=== PATIENT | male | born 1940 | race Caucasian/White ===

== ENCOUNTER → 2023-05-11 | Outpatient (CLI) | payer MEDICARE ==
--- NOTE | 2023-05-11 15:31 | XR ---
EXAMINATION TYPE: XR chest 2V DATE OF EXAM: 05/11/2023 COMPARISON: None INDICATION: Routine physical checkup TECHNIQUE: Frontal and lateral views of the chest are obtained. FINDINGS: The heart size is normal. The pulmonary vasculature is normal. The lungs are clear. Pacemaker overlies the left chest. IMPRESSION: 1. No acute pulmonary process.
== END | disposition home or self-care (01) ==
LOC: RADXRMAIN 15:07
PROVIDERS: ATTEND Internal Medicine
DX: E83.52 Hypercalcemia (principal); R13.10 Dysphagia, unspecified
CPT/HCPCS: 71046

== ENCOUNTER → 2023-05-11 | Outpatient (CLI) | payer MEDICARE ==
[2023-05-11 17:32] LABS: Ionized Calcium 5.3 mg/dL (4.5-5.3)
[2023-05-11 18:04] LABS: ALT 157 U/L (4-49); AST 179 U/L (17-59); African American GFR (CKD) >90 (>60 ml/min/1.73 sqM); Albumin 4.2 g/dL (3.5-5.0); Albumin/Globulin Ratio 1.4; Alkaline Phosphatase 118 U/L (38-126); Anion Gap 6 mmol/L; Bilirubin,Unconjugated 0.4 mg/dL (0.0-1.1); Blood Urea Nitrogen 31 mg/dL (9-20); Calcium 9.9 mg/dL (8.4-10.2); Carbon Dioxide 28 mmol/L (22-30); Chloride 102 mmol/L (98-107); Globulin 3.1 g/dL; Non-African American GFR(CKD) 78 (>60 ml/min/1.73 sqM); Potassium 4.5 mmol/L (3.5-5.1); Sodium 136 mmol/L (137-145); Total Bilirubin 0.9 mg/dL (0.2-1.3); Total Protein 7.3 g/dL (6.3-8.2)
[2023-05-11 18:05] LABS: Glucose 73 mg/dL (74-99)
[2023-05-11 18:53] LABS: Basophils % (A) 1 %; Eosinophils # (A) 0.1 k/uL (0-0.7); Eosinophils % (A) 2 %; HCT 40.1 % (39.0-53.0); HGB 13.2 gm/dL (13.0-17.5); Lymphocytes # (A) 0.9 k/uL (1.0-4.8); Lymphocytes % (A) 24 %; MCH 33.5 pg (25.0-35.0); MCHC 32.9 g/dL (31.0-37.0); MCV 101.9 fL (80.0-100.0); Macrocytosis Slight; Mean Platelet Volume 12.1; Monocytes # (A) 0.2 k/uL (0-1.0); Monocytes % (A) 6 %; Neutrophils # (A) 2.4 k/uL (1.3-7.7); Neutrophils % (A) 66 %; RBC 3.93 m/uL (4.30-5.90); RDW 15.7 % (11.5-15.5); WBC 3.6 k/uL (3.8-10.6)
[2023-05-11 19:42] LABS: Platelet Count 48 k/uL (150-450)
[2023-05-12 02:42] LABS: Albumin 4.2 d/dL (3.8-4.9); Protein, Total 7.1 d/dL (6.2-8.2)
[2023-05-12 02:45] LABS: % Iron Saturation 22.43 (15.00-50.00); Ceruloplasmin 21.5 mg/dL (20.0-60.0); Iron 98 UG/DL (65-175); Total Iron Binding Capacity 437 UG/DL (228-460)
[2023-05-14 05:17] LABS: EBV - VCA IgM <10.0 U/mL (<36.0)
[2023-05-14 14:25] LABS: Smooth Muscle Antibody 18 UNITS (<20)
[2023-05-14 18:54] LABS: Gamma Globulin 0.92 d/dL (0.70-1.50)
[2023-05-14 20:01] LABS: Vitamin D, 1, 25-Dihydroxy 52 pg/mL (20 - 79)
== END | disposition home or self-care (01) ==
LOC: LABWHC1 15:27
PROVIDERS: ATTEND Internal Medicine
DX: E83.52 Hypercalcemia (principal); R74.01 Elevation of levels of liver transaminase levels
CPT/HCPCS: 36415; 80053; 80074; 82248; 82330; 82390; 82652; 83516; 83540; 83550; 83970; 84165; 85025; 86038; 86645; 86665

== ENCOUNTER → 2023-06-08 | Outpatient (CLI) | payer MEDICARE ==
--- NOTE | 2023-06-08 08:35 | XR ---
EXAMINATION TYPE: XR chest 2V DATE OF EXAM: 06/08/2023 COMPARISON: 05/25/2023 HISTORY: 82-year-old male [id number] TECHNIQUE: Frontal and lateral views FINDINGS: Left anterior chest wall ICD generator with right atrial and right ventricular leads. Heart normal si ze. Aorta and pulmonary vasculature within normal limits. No consolidation or pleural effusion. IMPRESSION: No acute cardiopulmonary process.
--- NOTE | 2023-06-08 09:12 | US ---
EXAMINATION TYPE: US abdomen complete DATE OF EXAM: 06/08/2023 COMPARISON: NONE CLINICAL INDICATION: Male, 82 years old with history of R74.01 ELEV LIVER LEVELS; elevated LFTs TECHNIQUE: Multiple sonographic images of the abdomen are obtained. FINDINGS: EXAM MEASUREMENTS: Liver Length: 12.6 cm Gallbladder Wall: 0.2 cm CBD: 0.3 cm Spleen: 10.5 cm Right Kidney: 9.7x3.4x4.8 cm Left Kidney: 8.2x4.4x5.7 cm OUTSIDE SALES ACCOUNT EXECUTIVE NOTES: Pancreas: dilated duct, mostly homogenous, several anechoic areas noted in head of pancreas, scale d ecreased to detect low flow, does not seem vascular in nature. (cysts vs. dilated bile ducts) Liver: wnl Gallbladder: wnl, phrygian cap Evidence for sonographic Iqbal's sign: No CBD: wnl Spleen: wnl Right Kidney: several cystic areas noted, largest 2 measured superior: 3.3x2.5x2.7cm mid: 2.1x1.5x1.9cm Left Kidney: cystic area measured on lower pole: 2.5x2.12.9cm Upper IVC: wnl Abd Aorta: Distal AAA 2.8x3.6, atherosclerotic plaque throughout, iliacs also imaged free fluid seen in pericardial sac and bilateral pleural spaces. Exam technically difficult due to brianne wel gas and feeding tube Atherosclerotic calcification of the aorta and its branches. Distal abdominal aortic aneurysm measuri ng up to 3.6 cm. Aneurysm dilatation of both common iliac arteries with the right measuring 2.1 cm an d the left measuring 1.8 cm. Small bilateral pleural effusions. Trace pericardial fluid. Mildly prominent pancreatic measuring up to 3 mm. Several simple cysts noted within the head of the p ancreas the liver is within normal limits without focal lesion. Several cysts identified within the r ight kidney with largest in the superior pole measuring up to 3.3 cm. No hydronephrosis or nephrolith iasis involving both kidneys. No solid masses identified within each kidney. Lower pole simple left r enal cyst measuring up to 2.9 cm. The spleen is within normal limits. The gallbladder is unremarkable without evidence of pericholecyst ic fluid, wall thickening, or shadowing calculi. IMPRESSION: 1. No acute abdominal process. 2. Mildly dilated main pancreatic duct with several cystic lesions within the pancreatic head which may represent side branch intraductal papillary mucinous neoplasms versus pseudocyst versus other ha ologies. Further evaluation with MR abdomen/MRCP is recommended. 3. Distal abdominal aortic aneurysm measuring up to 3.6 cm with aneurysmal dilatation of the bilater al common iliac arteries. 4. Bilateral simple renal cysts. 5. Small bilateral pleural effusions. 6. Trace pericardial effusion.
== END | disposition home or self-care (01) ==
LOC: RADUSWWP 07:21
PROVIDERS: ATTEND Internal Medicine
DX: E83.52 Hypercalcemia (principal); J90 Pleural effusion, not elsewhere classified; N28.1 Cyst of kidney, acquired; I71.40 Abdominal aortic aneurysm, without rupture, unspecified; I31.39 Other pericardial effusion (noninflammatory); R74.01 Elevation of levels of liver transaminase levels
CPT/HCPCS: 71046; 76700

== ENCOUNTER → 2023-06-30 | Outpatient (CLI) | payer MEDICARE ==
[2023-06-30 13:27] LABS: ALT 36 U/L (10-49); AST 41 U/L (14-35); Albumin 4.2 d/dL (3.8-4.9); Albumin/Globulin Ratio 1.83 Ratio (1.60-3.17); Alkaline Phosphatase 103 U/L (41-126); BUN/Creat Ratio 30.88 Ratio (12.00-20.00); Blood Urea Nitrogen 24.7 mg/dL (9.0-27.0); Calcium 9.9 mg/dL (8.7-10.3); Carbon Dioxide 25.6 mmol/L (21.6-31.8); Chloride 109 mmol/L (96-109); Globulin 2.3 d/dL (1.6-3.3); Glucose 80 mg/dL (70-110); Potassium 4.3 mmol/L (3.5-5.5); Sodium 144 mmol/L (135-145); T4, Free (Free Thyroxine) 1.68 ng/dL (0.80-1.80); Total Bilirubin 0.7 mg/dL (0.3-1.2); Total Protein 6.5 d/dL (6.2-8.2)
== END | disposition home or self-care (01) ==
LOC: LABWHC1 08:55
PROVIDERS: ATTEND Internal Medicine
DX: E03.9 Hypothyroidism, unspecified (principal)
CPT/HCPCS: 36415; 80053; 84439; 84443

== ENCOUNTER → 2023-08-23 | Outpatient (CLI) | payer MEDICARE ==
--- NOTE | 2023-08-23 12:39 | FL ---
Exam Date: 08/23/2023 12:20 PM. Modified barium swallow for dysphagia. Consistencies administered: Various consistency of barium. Fluoro time: 3 minutes 14 seconds No images were sent to PACS. Please see speech pathology report. DAP: Not reported by machine [email or web address]
== END | disposition home or self-care (01) ==
LOC: RADFLMAIN 11:39
PROVIDERS: ATTEND Internal Medicine
DX: R13.10 Dysphagia, unspecified (principal)
CPT/HCPCS: 74230

== ENCOUNTER 2023-09-04 06:13 | Day surgery (SDC) | payer MEDICARE ==
[2023-08-31 09:06] VITALS: BMI 18.2
[2023-09-04] MEDS ORDERED: LACTATED RINGERS 1,000 ML IV SCH (06:44)
[2023-09-04] MEDS ORDERED: LIDOCAINE 1% (10MG/ML) FOR IV START INTRADERMA PRN (06:44)
[2023-09-04] MEDS ORDERED: ePHEDrine 50 MG/ML 1 ML VIAL ONE (07:06)
[2023-09-04] MEDS ORDERED: PROPOFOL 10 MG/ML 20 ML VIAL IV ONE (07:06)
[2023-09-04] MEDS ORDERED: fentaNYL (PF) 50 MCG/ML 2 ML AMP ONE (07:06)
--- NOTE | 2023-09-04 07:52 | OP ---
OPERATIVE REPORT DATE OF SERVICE : PROCEDURES PERFORMED: Bone marrow biopsy with general and local sedation. DESCRIPTION OF PROCEDURE: After administration of general anesthetization, the skin was prepped with 3 swabs of Betadine and 3 swabs of alcohol along with placement of sterile drape. After palpation of the right posterior superior iliac spine, 10 mL of 1% lidocaine was applied through the periosteum. A 0.3 cm incision was made into the skin. A 4-inch Jamshidi needle was then used to access the bone marrow. 17 mL of aspirate was obtained in addition to 1 cm core sample. There was less than 1 mL of blood loss. Mr. Mendiola tolerated the procedure well without any complications. He was sent to postop in stable condition. MMODL / IJN: [id number] /
[2023-09-04 08:27] VITALS: BP 108/68; PULSE 64; RESP 16
[2023-09-04 09:01] LABS: HCT 40.1 % (39.0-53.0); HGB 13.2 gm/dL (13.0-17.5); MCH 34.8 pg (25.0-35.0); MCHC 32.9 g/dL (31.0-37.0); MCV 105.7 fL (80.0-100.0); Macrocytosis Slight; Mean Platelet Volume 11.8; RBC 3.79 m/uL (4.30-5.90); RDW 12.9 % (11.5-15.5); Reticulocyte % 1.3 % (0.5-2.0)
[2023-09-04 09:44] LABS: Platelet Count 61 k/uL (150-450)
[2023-09-04 09:47] LABS: Basophils # (M) 0.05 k/uL (0-0.2); Eosinophils # (M) 0.05 k/uL (0-0.7); Neutrophils % (M) 70 %; Nucleated Red Blood Cells 0 /100 WBC (0-0); Total Cells Counted 100
== END 2023-09-04 08:52 | disposition home or self-care (01) ==
LOC: OR 06:13
PROVIDERS: ATTEND Internal Medicine Hematology & Oncology
DX: D61.818 Other pancytopenia (principal); I10 Essential (primary) hypertension; E78.5 Hyperlipidemia, unspecified; E03.9 Hypothyroidism, unspecified; I25.2 Old myocardial infarction; I25.5 Ischemic cardiomyopathy; Z95.0 Presence of cardiac pacemaker; Z95.5 Presence of coronary angioplasty implant and graft; Z79.811 Long term (current) use of aromatase inhibitors; Z79.899 Other long term (current) drug therapy
CPT/HCPCS: 85025; 85045; 38222; J3010; J2704

== ENCOUNTER → 2023-10-10 | Outpatient (CLI) | payer MEDICARE ==
[2023-10-10 15:44] LABS: Prealbumin 28.3 mg/dL (18.0-42.0)
[2023-10-10 15:59] LABS: ALT 28 U/L (10-49); AST 32 U/L (14-35); Albumin 3.9 g/dL (3.8-4.9); Albumin/Globulin Ratio 1.56 Ratio (1.60-3.17); Alkaline Phosphatase 106 U/L (41-126); BUN/Creat Ratio 42.62 Ratio (12.00-20.00); Blood Urea Nitrogen 34.1 mg/dL (9.0-27.0); Calcium 10.1 mg/dL (8.7-10.3); Carbon Dioxide 27.3 mmol/L (21.6-31.8); Chloride 109 mmol/L (96-109); Globulin 2.5 g/dL (1.6-3.3); Glucose 111 mg/dL (70-110); Magnesium 2.4 mg/dL (1.5-2.4); Potassium 4.3 mmol/L (3.5-5.5); Sodium 147 mmol/L (135-145); T4, Free (Free Thyroxine) 1.11 ng/dL (0.80-1.80); Total Bilirubin 0.4 mg/dL (0.3-1.2); Total Protein 6.4 g/dL (6.2-8.2)
== END | disposition home or self-care (01) ==
LOC: LABWHC1 08:24
PROVIDERS: ATTEND Internal Medicine
DX: I10 Essential (primary) hypertension (principal); E03.9 Hypothyroidism, unspecified
CPT/HCPCS: 36415; 80053; 83735; 84134; 84439; 84443

== ENCOUNTER 2023-11-29 11:19 | Day surgery (SDC) | payer MEDICARE ==
[2023-11-29] MEDS ORDERED: LACTATED RINGERS 1,000 ML IV SCH (11:43)
[2023-11-29 11:45] VITALS: TEMP 97.6
[2023-11-29] MEDS ORDERED: PROPOFOL 10 MG/ML 20 ML VIAL IV ONE (12:01)
[2023-11-29] MEDS ORDERED: LIDOCAINE 1% INJ 10MG/ML (20 ML MDV) ONE (12:01)
--- NOTE | 2023-11-29 12:12 | P.GSHP ---
History of Present Illness H&P Date: 11/29/23 Chief Complaint: PEG tube malfunction, ulcers 83-year-old male here for EGD with PEG tube replacement. Patient with history of previous ulcers. Here today for follow-up study to evaluate healing of ulcers. Patient also has a PEG tube in place. It requires replacement as it is old. Past Medical History Past Medical History: Hyperlipidemia, Hypertension, Myocardial Infarction (NH), Thyroid Disorder Additional Past Medical History / Comment(s): surgery on throat learning to speak through speech therapy. Put vein from leg in to throat. 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 Smoking Status: Former smoker Medications and Allergies Home Medications Medication Instructions Recorded Confirmed Type Atorvastatin [Lipitor] 40 mg PO DAILY 08/31/23 11/29/23 History Levothyroxine Sodium [Synthroid] 100 mcg PO DAILY 08/31/23 11/29/23 History Metoprolol Succinate (ER) [Toprol 25 mg PO DAILY 08/31/23 11/29/23 History Xl] Midodrine HCl [ProAmantine] 2.5 mg PO DAILY 08/31/23 11/29/23 History lisinopriL [Zestril] 2.5 mg PO DAILY 08/31/23 11/29/23 History Allergies Allergy/AdvReac Type Severity Reaction Status Date / Time No Known Allergies Allergy Verified 11/29/23 11:43 Surgical - Exam Vital Signs Temp Pulse Resp BP Pulse Ox 97.6 F 88 18 134/84 97 11/29/23 11:42 11/29/23 11:42 11/29/23 11:42 11/29/23 11:42 11/29/23 11:42 Physical exam: General: Well-developed, well-nourished HEENT: Normocephalic, sclerae nonicteric Abdomen: Nontender, nondistended Extremities: No edema Neuro: Alert and oriented Assessment and Plan (1) Peptic ulcer disease Narrative/Plan: 83-year-old male with peptic ulcer disease and indwelling catheter. Will pro ceed with EGD and PEG tube replacement at this time. Risks of bleeding, infection, perforation discussed. He understands and wishes to proceed. Current Visit: Yes Status: Acute Code(s): K27.9 - PEPTIC ULC, SITE UNSP, UNSP AC OR CHR, W/O HEMOR OR PERF SNOMED Code(s): 65692656
--- NOTE | 2023-11-29 12:49 | P.PCN ---
Date of Procedure: 11/29/23 Procedure(s) Performed: Preoperative Dx: History of ulcers, indwelling PEG tube Postoperative Dx: Mild gastritis, mild esophagitis, indwelling PEG tube Procedure: EGD with tube replacement Anesthesia: Sedation Endoscopist: Dr. Flores Specimens: None Endoscopic Procedure: The patient was on the endoscopy table in the left decubitus position. The Olympus pediatric gastroscope was inserted into the oropharynx and passed under direct visualization to the region of the third portion of the duodenum. From that point the scope was slowly withdrawn inspecting all surfaces carefully. There were no neoplastic inflammatory or polypoid lesions throughout the duodenum. The pylorus was widely patent. The stomach was carefully inspected. There was minimal gastritis present. The patient's indwelling PEG tube was a balloon replacement tube and the balloon was empty. This was present in the antrum. This was able to be removed without difficulty. There was no fluid in the balloon. A new nonballoon 20 [place] replacement was advanced and deployed. The remainder the stomach appeared visibly normal. There were no visible ulcerations despite history of previous bleeding ulcers that the patient's family states were in the stomach. There was no visible hiatal hernia. The patient's esophagus revealed some mild distal esophagitis and some mild narrowing thought to be related to disuse. The patient was then taken to the recovery room in stable condition per anesthesia guidelines. Recommendations: Resume tube feeds. Continue antiacid therapy.
[2023-11-29 13:00] VITALS: BP 144/77; PULSE 69; RESP 16
== END 2023-11-29 13:12 | disposition home or self-care (01) ==
LOC: ORWHC2ENDO 11:19
PROVIDERS: ATTEND Surgery
DX: K29.70 Gastritis, unspecified, without bleeding (principal); K94.23 Gastrostomy malfunction; K27.9 Peptic ulcer, site unspecified, unspecified as acute or chronic, without hemorrhage or perforation; K20.90 Esophagitis, unspecified without bleeding; I25.2 Old myocardial infarction; I10 Essential (primary) hypertension; E78.5 Hyperlipidemia, unspecified; Z79.890 Hormone replacement therapy; Z87.891 Personal history of nicotine dependence; Z79.899 Other long term (current) drug therapy
CPT/HCPCS: 43246; J2001; J2704

== ENCOUNTER → 2024-01-28 | Outpatient (CLI) | payer MEDICARE ==
[2024-01-28 10:39] LABS: African American GFR (CKD) >90 (>60 ml/min/1.73 sqM); Blood Urea Nitrogen 37 mg/dL (9-20); Non-African American GFR(CKD) 86 (>60 ml/min/1.73 sqM)
--- NOTE | 2024-01-28 13:41 | CT ---
EXAMINATION TYPE: CT abdomen pelvis w con DATE OF EXAM: 01/28/2024 COMPARISON: None HISTORY: pancreatic cyst CT DLP: 1271 mGycm Automated exposure control for dose reduction was used. TECHNIQUE: Helical acquisition of images was performed from the lung bases through the pelvis. CONTRAST: Performed without Oral Contrast and with IV Contrast, patient injected with 100ml mL of Isovue 300. FINDINGS: The lung bases are clear. The gallbladder is normal without distention, wall thickening, pericholecystic fluid or gallstones. T here is no biliary ductal dilatation. There are 2 small cysts in the lateral segment of the left lobe of the liver. There is a cluster of t iny cysts in the pancreatic head with overall dimensions of approximately 3 cm. Findings could repres ent an intraductal papillary mucous neoplasm. MRI of the pancreas is recommended for further evaluati on. There is no organomegaly or focal mass in the spleen or adrenal glands. There is no solid renal mass or hydronephrosis and there is homogeneous contrast enhancement of the r enal parenchyma. There is aneurysmal dilatation of the infrarenal abdominal aorta which measures 3.9 cm transverse and 4.2 cm in the anterior-posterior dimension. There is marked amount of mural thrombus. The aneurysm e xtends into the common iliac arteries the right common iliac artery measuring 23 mm.There is no retro peritoneal adenopathy or hemorrhage. The bowel loops are normal in caliber and there is no evidence of dilatation or obstruction. No infla mmatory changes are identified in the bowel wall or mesentery. There is no free intraperitoneal air or fluid. No pelvic mass, free fluid, abscess or adenopathy. There is moderate to marked prostatic hypertrophy. The osseous structures and soft tissues are intact. IMPRESSION: 1. Multiple tiny cystic masses in the pancreas and MRI the pancreas is recommended for further evalua tion, see above. 2. 4.2 x 3.9 cm infrarenal abdominal aortic aneurysm with extensive mural thrombus. 3. Moderate to marked prostatic enlargement. IMPRESSION: No significant abnormality seen.
== END | disposition home or self-care (01) ==
LOC: RADCTMAIN 09:48
PROVIDERS: ATTEND Internal Medicine
DX: I71.43 Infrarenal abdominal aortic aneurysm, without rupture (principal); K86.2 Cyst of pancreas; N40.0 Benign prostatic hyperplasia without lower urinary tract symptoms
CPT/HCPCS: 82565; 84520; 74177; 36415; Q9967

== ENCOUNTER → 2024-02-25 | Outpatient (CLI) | payer MEDICARE ==
[2024-02-25 12:04] LABS: Ionized Calcium 5.3 mg/dL (4.5-5.3)
[2024-02-25 12:11] LABS: HCT 47.2 % (39.0-53.0); MCH 35.7 pg (25.0-35.0); Macrocytosis Slight; Mean Platelet Volume 10.3; RDW 13.2 % (11.5-15.5); WBC 5.8 k/uL (3.8-10.6)
[2024-02-25 12:14] LABS: African American GFR (CKD) >90 (>60 ml/min/1.73 sqM); Anion Gap 6 mmol/L; Blood Urea Nitrogen 31 mg/dL (9-20); Calcium 9.7 mg/dL (8.4-10.2); Carbon Dioxide 27 mmol/L (22-30); Chloride 110 mmol/L (98-107); Glucose 105 mg/dL (74-99); Non-African American GFR(CKD) 83 (>60 ml/min/1.73 sqM); Potassium 4.5 mmol/L (3.5-5.1); Sodium 143 mmol/L (137-145)
[2024-02-25 13:40] LABS: Eosinophils # (M) 0.12 k/uL (0-0.7); Lymphocytes # (M) 0.93 k/uL (1.0-4.8); Monocytes # (M) 0.35 k/uL (0-1.0); Neutrophils # (M) 4.41 k/uL (1.3-7.7); Neutrophils % (M) 76 %; Nucleated Red Blood Cells 0 /100 WBC (0-0); Total Cells Counted 100
[2024-02-25 13:41] LABS: Platelet Count 87 k/uL (150-450)
[2024-02-25 15:53] LABS: Protein, Total 7.2 g/dL (6.2-8.2)
[2024-02-27 07:43] LABS: Albumin 4.01 g/dL (3.80-4.90); Gamma Globulin 0.96 g/dL (0.70-1.50)
== END | disposition home or self-care (01) ==
LOC: LABWHC1 11:29
PROVIDERS: ATTEND Internal Medicine
DX: E83.52 Hypercalcemia (principal)
CPT/HCPCS: 36415; 80048; 82306; 82330; 82652; 83970; 84165; 85025

== ENCOUNTER → 2024-02-25 | Outpatient (CLI) | payer MEDICARE ==
--- NOTE | 2024-02-25 11:53 | FL ---
EXAMINATION TYPE: FL barium swallow w video DATE OF EXAM: 02/25/2024 CLINICAL HISTORY: 83-year-old male R13.10, carotid surgery on the right side 2 years ago with signifi cant dysphagia subsequently. Patient with tube feeds. Referred for reassessment of swallowing. Total fluoroscopy time 2 minutes 51 seconds. Total images: None. Real-time fluoroscopy support was provided to speech pathology. Total DAP: 50 mGycm2. TECHNIQUE: Deglutition study is performed utilizing thin liquid barium, honey and nectar thick liqui d barium. COMPARISON: None. FINDINGS: There is aspiration with thin liquids. Penetration of nectar and honey thick liquid consistencies. Si gnificant pharyngeal residuals are encountered. Some clearance of these residuals with a leftward hea d turn maneuver. IMPRESSION: Aspiration of thin liquids and penetration of nectar and honey liquid. Significant pharyngeal residua l. A leftward head turn helps to partially clear the residuals. Please refer to speech therapist notes for further details if necessary.
== END | disposition home or self-care (01) ==
LOC: RADFLMAIN 10:33
PROVIDERS: ATTEND Internal Medicine
DX: R13.10 Dysphagia, unspecified (principal)
CPT/HCPCS: 74230

== ENCOUNTER 2024-04-16 15:46 | Inpatient (IN) | payer MEDICARE ==
--- NOTE | 2024-04-16 16:11 | ED ---
General Adult HPI - General Stated complaint: weakness,fever Time Seen by Provider: 04/16/24 15:46 Source: patient, RN notes reviewed, old records reviewed - History of Present Illness Initial comments: This is an 83-year-old male who comes in today for difficulty breathing and fever. Patient has a past history of dysphagia such that he has to take all p.o. intake through a PEG tube. Patient comes in today because he was exposed to influenza and he is spiking a fever and it is thought that he might have pneumonia and or influenza. Patient denies chest pain or back pain. Patient has any abdominal pain. Patient according to EMS was vomiting occasionally and it is possible there was some aspiration pneumonia. Patient denies any headache patient denies numbness or weakness - Related Data Home Medications Medication Instructions Recorded Confirmed Atorvastatin [Lipitor] 40 mg PEG/G-TUBE DAILY@1500 08/31/23 04/16/24 Metoprolol Succinate (ER) [Toprol 25 mg PEG/G-TUBE HS 08/31/23 04/16/24 Xl] Midodrine HCl [ProAmantine] 2.5 mg PEG/G-TUBE BID 08/31/23 04/16/24 lisinopriL [Zestril] 2.5 mg PEG/G-TUBE DAILY 08/31/23 04/16/24 Levothyroxine Sodium [Synthroid] 25 mcg PEG/G-TUBE GALLARDO 04/16/24 04/16/24 Levothyroxine Sodium [Synthroid] 100 mcg PEG/G-TUBE DAILY 04/16/24 04/16/24 Loratadine [Claritin] 10 mg PEG/G-TUBE DAILY@1500 04/16/24 04/16/24 Allergies Allergy/AdvReac Type Severity Reaction Status Date / Time No Known Allergies Allergy Verified 04/16/24 16:39 Review of Systems ROS Statement: Those systems with pertinent positive or pertinent negative responses have been documented in the HPI. ROS Other: All systems not noted in ROS Statement are negative. Past Medical History Past Medical History: Hyperlipidemia, Hypertension, Myocardial Infarction (ME), Thyroid Disorder Additional Past Medical History / Comment(s): surgery on throat learning to speak through speech therapy. Put vein from leg in to throat. 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 Patient is nontoxic and well- hydrated and is in mild distress. ENT: Neck is soft and supple. No significant lymphadenopathy is noted. Oropharynx is clear. Moist mucous membranes. Neck has full range of motion without eliciting any pain. EYES: The sclera were anicteric and conjunctiva were pink and moist. Extraocular movements were intact and pupils were equal round and reactive to light. Eyelids were unremarkable. PULMONARY: Unlabored respirations. Good breath sounds bilaterally. No audible rales rhonchi or wheezing was noted. CARDIOVASCULAR: There is a regular rate and rhythm without any murmurs gallops or rubs. ABDOMEN: Soft and nontender with normal bowel sounds. SKIN: Skin is clear with no lesions or rashes and otherwise unremarkable. NEUROLOGIC: Patient is alert and oriented x3. Cranial nerves II through XII are grossly intact. Motor and sensory are also intact. Normal speech, volume and content. Symmetrical smile. MUSCULOSKELETAL: Normal extremities with adequate strength and full range of motion. No lower extremity swelling or edema. No calf tenderness. LYMPHATICS: No significant lymphadenopathy is noted PSYCHIATRIC: Normal psychiatric evaluation. Course Vital Signs 04/16/24 04/16/24 04/16/24 15:56 16:33 18:00 Temperature 100.8 F H 99.1 F Pulse Rate 100 103 H 90 Respiratory 18 18 16 Rate Blood Pressure 124/47 112/64 105/44 O2 Sat by Pulse 98 92 L 94 L Oximetry Medical Decision Making - Medical Decision Making EKG is interpreted by myself EKG shows sinus tachycardia at 103 bpm parables 148 QRS is 123 QT interval 334 QTc is 394. Patient's EKG shows a right bundle branch block. Was pt. sent in by a medical professional or institution (, PA, SIEBEL CRM DEVELOPER, urgent care, hospital, or snf...) When possible be specific @ -No Did you speak to anyone other than the patient for history (EMS, parent, family, police, friend...)? What history was obtained from this source @ -No Did you review nursing and triage notes (agree or disagree)? Why? @ -I reviewed and agree with nursing and triage notes Were old charts reviewed (outside hosp., previous admission, EMS record, old EKG, old radiological studies, urgent care reports/EKG's, snf records)? Report findings @ -I reviewed prior admission charts and this patient lab work today is essentially normal in comparison Differential Diagnosis (chest pain, altered mental status, abdominal pain women, abdominal pain men, vaginal bleeding, weakness, fever, dyspnea, syncope, headache, dizziness, GI bleed, back pain, seizure, CVA, palpatations, mental health, musculoskeletal)? @ -Not applicable EKG interpreted by me (3pts min.). @ -As above X-rays interpreted by me (1pt min.). @ -Chest x-ray shows lower lobe pneumonia on the right CT interpreted by me (1pt min.). @ -None done U/S interpreted by me (1pt. min.). @ -None done What testing was considered but not performed or refused? (CT, X-rays, U/S, labs)? Why? @ -None What meds were considered but not given or refused? Why? @ -None Did you discuss the management of the patient with other professionals (professionals i.e. , PA, SIEBEL CRM DEVELOPER, lab, RT, psych nurse, transition social worker, invisible braces orthodontist, t eacher, medical corps officer, caser in)? Give summary @ -I spoke with sound physicians they agreed to admit the patient admit the patient wrote admitting orders Was smoking cessation discussed for >3mins.? @ -No Was critical care preformed (if so, how long)? @ -No Were there social determinants of health that impacted care today? How? (Homelessness, low income, unemployed, alcoholism, drug addiction, transportation, low edu. Level, literacy, decrease access to med. care, retirement, rehab)? @ -No Was there de-escalation of care discussed even if they declined (Discuss DNR or withdrawal of care, Hospice)? DNR status @ -No What co-morbidities impacted this encounter? (DM, HTN, Smoking, COPD, CAD, Canc er, CVA, ARF, Chemo, Hep., AIDS, mental health diagnosis, sleep apnea, morbid obesity)? @ -None Was patient admitted / discharged? Hospital course, mention meds given and route, prescriptions, significant lab abnormalities, going to OR and other pertinent info. @ -Patient got his Rocephin for the pneumonia. Patient will get admitted to [facility] I will continue antibiotics in the floor and I gave the patient 1.5 L of normal saline Undiagnosed new problem with uncertain prognosis? @ -No Drug Therapy requiring intensive monitoring for toxicity (Heparin, Nitro, Insulin, Cardizem)? @ -No Were any procedures done? @ -No Diagnosis/symptom? @ -Pneumonia Acute, or Chronic, or Acute on Chronic? @ -acute Uncomplicated (without systemic symptoms) or Complicated (systemic symptoms)? @ -Complicated Side effects of treatment? @ -No Exacerbation, Progression, or Severe Exacerbation? @ -No Poses a threat to life or bodily function? How? (Chest pain, [place], ME, pneumonia, PE, COPD, DKA, ARF, appy, cholecystitis, CVA, Diverticulitis, Homicidal, Suicidal, threat to staff... and all critical care pts) @ -Yes this can lead to sepsis and endorgan dysfunction - Lab Data Result diagrams: 04/16/24 16:18 04/16/24 16:45 Lab Results 04/16/24 04/16/24 04/16/24 Range/Units 16:18 16:18 16:18 WBC 7.8 (3.8-10.6) k/uL RBC 4.12 L (4.30-5.90) m/uL Hgb 14.4 (13.0-17.5) gm/dL Hct 41.6 (39.0-53.0) % MCV 100.9 H (80.0-100.0) fL MCH 34.9 (25.0-35.0) pg MCHC 34.6 (31.0-37.0) g/dL RDW 13.4 (11.5-15.5) % Plt Count 77 L (150-450) k/uL MPV 12.3 Neutrophils % 86 % Lymphocytes % 4 % Monocytes % 9 % Eosinophils % 0 % Basophils % 0 % Neutrophils # 6.7 (1.3-7.7) k/uL Lymphocytes # 0.3 L (1.0-4.8) k/uL Monocytes # 0.7 (0-1.0) k/uL Eosinophils # 0.0 (0-0.7) k/uL Basophils # 0.0 (0-0.2) k/uL Manual Slide Review Performed Large Platelets Present Polychromasia Present Macrocytosis Slight PT 10.8 (10.0-12.5) sec INR 1.0 (<1.2) APTT 21.2 L (22.0-30.0) sec Sodium (137-145) mmol/L Potassium (3.5-5.1) mmol/L Chloride (98-107) mmol/L Carbon Dioxide (22-30) mmol/L Anion Gap mmol/L BUN (9-20) mg/dL Creatinine (0.66-1.25) mg/dL Est GFR (CKD-EPI)AfAm (>60 ml/min/1.73 sqM) Est GFR (CKD-EPI)NonAf (>60 ml/min/1.73 sqM) Glucose (74-99) mg/dL Plasma Lactic Acid Raimundo 1.5 (0.7-2.0) mmol/L Calcium (8.4-10.2) mg/dL Total Bilirubin (0.2-1.3) mg/dL AST (17-59) U/L ALT (4-49) U/L Alkaline Phosphatase (38-126) U/L Total Protein (6.3-8.2) g/dL Albumin (3.5-5.0) g/dL Influenza Type A (PCR) (Not Detectd) Influenza Type B (PCR) (Not Detectd) RSV (PCR) (Not Detectd) SARS-CoV-2 (PCR) (Not Detectd) 04/16/24 04/16/24 Range/Units 16:18 16:45 WBC (3.8-10.6) k/uL RBC (4.30-5.90) m/uL Hgb (13.0-17.5) gm/dL Hct (39.0-53.0) % MCV (80.0-100.0) fL MCH (25.0-35.0) pg MCHC (31.0-37.0) g/dL RDW (11.5-15.5) % Plt Count (150-450) k/uL MPV Neutrophils % % Lymphocytes % % Monocytes % % Eosinophils % % Basophils % % Neutrophils # (1.3-7.7) k/uL Lymphocytes # (1.0-4.8) k/uL Monocytes # (0-1.0) k/uL Eosinophils # (0-0.7) k/uL Basophils # (0-0.2) k/uL Manual Slide Review Large Platelets Polychromasia Macrocytosis PT (10.0-12.5) sec INR (<1.2) APTT (22.0-30.0) sec Sodium 140 (137-145) mmol/L Potassium 5.1 (3.5-5.1) mmol/L Chloride 110 H (98-107) mmol/L Carbon Dioxide 25 (22-30) mmol/L Anion Gap 5 mmol/L BUN 25 H (9-20) mg/dL Creatinine 0.68 (0.66-1.25) mg/dL Est GFR (CKD-EPI)AfAm >90 (>60 ml/min/1.73 sqM) Est GFR (CKD-EPI)NonAf 90 (>60 ml/min/1.73 sqM) Glucose 122 H (74-99) mg/dL Plasma Lactic Acid Raimundo (0.7-2.0) mmol/L Calcium 8.6 (8.4-10.2) mg/dL Total Bilirubin 1.1 (0.2-1.3) mg/dL AST 41 (17-59) U/L ALT 21 (4-49) U/L Alkaline Phosphatase 78 (38-126) U/L Total Protein 6.3 (6.3-8.2) g/dL Albumin 3.6 (3.5-5.0) g/dL Influenza Type A (PCR) Not Detected (Not Detectd) Influenza Type B (PCR) Not Detected (Not Detectd) RSV (PCR) Not Detected (Not Detectd) SARS-CoV-2 (PCR) Not Detected (Not Detectd) Disposition Clinical Impression: Pneumonia Disposition: ADMITTED IP TO THIS [facility] Referrals: Junior Quiroz DO [Primary Care Provider] - 1-2 days Time of Disposition: 19:09
[2024-04-16] MEDS: ACETAMINOPHEN IV (For NPO) 1,000 MG in EMPTY BAG 1 BAG IVPB STA (16:32)
[2024-04-16] MEDS: SODIUM CHLORIDE 0.9% 500 ML 500 ML IV SCH (16:32)
--- NOTE | 2024-04-16 16:40 | XR ---
EXAMINATION TYPE: XR chest 2V DATE OF EXAM: 04/16/2024 COMPARISON: Chest x-ray June 08, 2023 HISTORY: Fever TECHNIQUE: Frontal and lateral views of the chest are obtained. FINDINGS: There is no suspicious new focal air space opacity, pleural effusion, or pneumothorax see n. The cardiac silhouette size is stable and within normal limits. Dual-lead pacemaker redemonstrate d. The osseous structures are intact. Colonic interposition below the right hemidiaphragm is noted. IMPRESSION: No acute pulmonary infiltrate.
[2024-04-16] MEDS: cefTRIAXone IN SWFI 1,000 MG/10 ML SYRINGE IVP STA ×2 (16:47→16:50)
[2024-04-16] MEDS: IBUPROFEN IV 600 MG in SODIUM CHLORIDE 0.9% 250 ML IV STA (16:51)
[2024-04-16 17:02] LABS: Prothrombin Time 10.8 sec (10.0-12.5)
[2024-04-16 17:03] LABS: Basophils % (A) 0 %; Eosinophils % (A) 0 %; HCT 41.6 % (39.0-53.0); HGB 14.4 gm/dL (13.0-17.5); Lymphocytes # (A) 0.3 k/uL (1.0-4.8); Lymphocytes % (A) 4 %; MCH 34.9 pg (25.0-35.0); MCHC 34.6 g/dL (31.0-37.0); MCV 100.9 fL (80.0-100.0); Macrocytosis Slight; Mean Platelet Volume 12.3; Monocytes # (A) 0.7 k/uL (0-1.0); Monocytes % (A) 9 %; Neutrophils # (A) 6.7 k/uL (1.3-7.7); Neutrophils % (A) 86 %; RBC 4.12 m/uL (4.30-5.90); RDW 13.4 % (11.5-15.5); WBC 7.8 k/uL (3.8-10.6)
[2024-04-16 17:06] LABS: Partial Thromboplastin Time 21.2 sec (22.0-30.0)
[2024-04-16 17:18] LABS: Large Platelets Present; Polychromasia Present
[2024-04-16 17:18] LABS: ALT 21 U/L (4-49); African American GFR (CKD) >90 (>60 ml/min/1.73 sqM); Albumin 3.6 g/dL (3.5-5.0); Anion Gap 5 mmol/L; Blood Urea Nitrogen 25 mg/dL (9-20); Calcium 8.6 mg/dL (8.4-10.2); Carbon Dioxide 25 mmol/L (22-30); Chloride 110 mmol/L (98-107); Glucose 122 mg/dL (74-99); Non-African American GFR(CKD) 90 (>60 ml/min/1.73 sqM); Sodium 140 mmol/L (137-145); Total Bilirubin 1.1 mg/dL (0.2-1.3); Total Protein 6.3 g/dL (6.3-8.2)
[2024-04-16 17:19] LABS: Platelet Count 77 k/uL (150-450)
[2024-04-16 17:37] LABS: AST 41 U/L (17-59); Alkaline Phosphatase 78 U/L (38-126); Potassium 5.1 mmol/L (3.5-5.1)
[2024-04-16] MEDS ORDERED: PNEUMONIA PROTOCOL UTILIZED 1 EACH MISC PO PRN (19:10)
[2024-04-16] MEDS: AZITHROMYCIN 500 MG in SODIUM CHLORIDE 0.9% 250 ML IVPB STA (20:28)
[2024-04-16] MEDS: HYDROCORTISONE SUCCINATE 100 MG/2 ML VIAL IV STA (20:28)
[2024-04-16] MEDS: SODIUM CHLORIDE 0.9% 1,000 ML IV ONE (20:29)
--- NOTE | 2024-04-16 22:59 | P.HPIM ---
History of Present Illness H&P Date: 04/16/24 Chief Complaint: Fevers cough 83-year-old male with hypertension hypothyroid Patient has poor insight of his medical conditions Patient has history of dysphagia for which she had a PEG tube inserted patient denies any history of cancer. It is reported that at home he had exposure to influenza today he was spiking fevers for which she was sent to the hospital for evaluation he gets his feeding through his PEG tube patient was having vomiting episodes at home which leads to suspicion of possible aspiration Patient himself has no complaints however when he talks he sounds congested In the ED acute respiratory viral panel was negative, chest x-ray no acute cardiopulmonary process Patient was started on antibiotics cultures obtained was admitted for further care review of systems Pertinent positives as noted in HPI. All other systems were reviewed and are negative on exam Constitutional: No acute distress, Eyes: Anicteric sclerae, moist conjunctiva, Pupils equal round reactive to light ENMT: NC/AT Oropharynx clear, no erythema, or exudates Neck: Supple, no masses, or JVD No carotid bruits No thyromegaly Lungs: Good breath sounds bilaterally no wheezing Clear to percussion Normal respiratory effort, no accessory muscle use Cardiovascular: Heart regular in rate and rhythm, No murmurs, gallops, or rubs No peripheral edema Abdominal: Soft Nontender, no guarding, rebound or rigidity Abdomen moving with respiration Normoactive bowel sounds PEG tube in place no surrounding erythema at insertion site no drainage Extremities: No digital cyanosis No clubbing Pedal pulses intact and symmetrical Radial pulses intact and symmetrical No calf tenderness Psychiatric: Alert and oriented to person, place and time Appropriate affect fair judgement Neuro Muscles Strength 5/5 in all 4 extremities Sensation to light touch grossly present throughout Cranial nerves II-XII grossly intact Past Medical History Past Medical History: Hyperlipidemia, Hypertension, Myocardial Infarction (MT), Thyroid Disorder Additional Past Medical History / Comment(s): surgery on throat learning to speak through speech therapy. Put vein from leg in to throat. 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 Smoking Status: Former smoker Medications and Allergies Home Medications Medication Instructions Recorded Confirmed Type Atorvastatin [Lipitor] 40 mg PEG/G-TUBE DAILY@1500 08/31/23 04/16/24 History Metoprolol Succinate (ER) [Toprol 25 mg PEG/G-TUBE HS 08/31/23 04/16/24 History Xl] Midodrine HCl [ProAmantine] 2.5 mg PEG/G-TUBE BID 08/31/23 04/16/24 History lisinopriL [Zestril] 2.5 mg PEG/G-TUBE DAILY 08/31/23 04/16/24 History Levothyroxine Sodium [Synthroid] 25 mcg PEG/G-TUBE GALLARDO 04/16/24 04/16/24 History Levothyroxine Sodium [Synthroid] 100 mcg PEG/G-TUBE DAILY 04/16/24 04/16/24 History Loratadine [Claritin] 10 mg PEG/G-TUBE DAILY@1500 04/16/24 04/16/24 History Allergies Allergy/AdvReac Type Severity Reaction Status Date / Time No Known Allergies Allergy Verified 04/16/24 16:39 Physical Exam Vitals: Vital Signs Temp Pulse Pulse Resp BP BP Pulse Ox 04/16/24 21:57 98.1 F 81 18 97/62 94 L 04/16/24 21:37 97.7 F 82 19 106/72 93 L 04/16/24 21:00 76 19 101/74 93 L 04/16/24 20:25 76 16 95/57 94 L 04/16/24 20:00 79 18 98/33 91 L 04/16/24 19:12 81 18 87/55 94 L 04/16/24 18:00 99.1 F 90 16 105/44 94 L 04/16/24 16:33 103 H 18 112/64 92 L 04/16/24 15:56 100.8 F H 100 18 124/47 98 Intake and Output 04/16/24 04/16/24 04/16/24 06:59 14:59 22:59 Other: Weight 63.503 kg Results CBC & Chem 7: 04/16/24 16:18 04/16/24 16:45 Labs: Abnormal Lab Results - Last 24 Hours (Table) 04/16/24 04/16/24 04/16/24 Range/Units 16:18 16:18 16:45 RBC 4.12 L (4.30-5.90) m/uL MCV 100.9 H (80.0-100.0) fL Plt Count 77 L (150-450) k/uL Lymphocytes # 0.3 L (1.0-4.8) k/uL APTT 21.2 L (22.0-30.0) sec Chloride 110 H (98-107) mmol/L BUN 25 H (9-20) mg/dL Glucose 122 H (74-99) mg/dL Assessment and Plan Assessment: 83-year-old male with history of dysphagia status post PEG tube hypertension hypothyroid coming in for fevers and suspicion of aspiration I discussed case with ED doctor and accepted the admission for evaluation of possible aspiration ruling out aspiration pneumonia with anticipated length of stay less than 2 midnights 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
[2024-04-17 00:34] LABS: Appearance,Urine Clear (Clear); Bacteria,Urine Rare /hpf; Bilirubin,Urine Negative (Negative); Blood,Urine Small (Negative); Color,Urine Yellow; Glucose,Urine (UA) Negative (Negative); Hyaline Casts,Urine 1 /lpf (0-2); Ketones,Urine Negative (Negative); Leukocyte Esterase,Urine Negative (Negative); Mucus,Urine Rare /hpf; Nitrite,Urine Negative (Negative); PH, Urine 5.5 (5.0-8.0); Protein,Urine 1+ (Negative); RBC,Urine 11 /hpf (0-5); Specific Gravity,Urine 1.031 (1.001-1.035); Squamous Epithelial Cell,Urine <1 /hpf (0-4); Urobilinogen,Urine <2.0 mg/dL (<2.0); WBC,Urine 1 /hpf (0-5)
[2024-04-17] MEDS: LEVOTHYROXINE 100 MCG TAB PEG/G-TUBE SCH (06:41)
--- NOTE | 2024-04-17 07:57 | XR ---
EXAMINATION TYPE: XR chest 1V portable DATE OF EXAM: 04/17/2024 COMPARISON: 04/16/2024 HISTORY: Pneumonia TECHNIQUE: Single frontal view of the chest is obtained. FINDINGS: Bilateral lower lobe infiltrate\atelectasis. Limited inspiration with elevated hemidiaphra gm. Underlying emphysema suspected. Cardiac device stable. Atherosclerotic change aorta. No pneumotho rax or overt failure. Degenerative changes of the spine. IMPRESSION: 1. Bibasilar atelectasis or infiltrate.
[2024-04-17] MEDS: MIDODRINE 5 MG TAB PEG/G-TUBE SCH (08:27)
[2024-04-17] MEDS: HEPARIN SODIUM,PORCINE 5,000 UNIT/ML 1 ML VIAL SQ SCH (08:28)
[2024-04-17] MEDS ORDERED: IPRATROPIUM-ALBUTEROL 3 ML NEB INHALATION PRN (08:35)
[2024-04-17 11:47] LABS: African American GFR (CKD) >90 (>60 ml/min/1.73 sqM); Anion Gap 6 mmol/L; Blood Urea Nitrogen 27 mg/dL (9-20); Calcium 7.9 mg/dL (8.4-10.2); Carbon Dioxide 21 mmol/L (22-30); Chloride 116 mmol/L (98-107); Glucose 95 mg/dL (74-99); Magnesium 2.1 mg/dL (1.6-2.3); Non-African American GFR(CKD) >90 (>60 ml/min/1.73 sqM); Potassium 4.1 mmol/L (3.5-5.1); Sodium 143 mmol/L (137-145)
[2024-04-17 11:57] LABS: HCT 41.9 % (39.0-53.0); HGB 13.6 gm/dL (13.0-17.5); MCH 34.3 pg (25.0-35.0); MCHC 32.4 g/dL (31.0-37.0); Macrocytosis Moderate; Mean Platelet Volume 10.7; RBC 3.96 m/uL (4.30-5.90); WBC 7.4 k/uL (3.8-10.6)
[2024-04-17 11:58] LABS: Platelet Count 60 k/uL (150-450)
[2024-04-17 12:00] LABS: MCV 105.9 fL (80.0-100.0)
[2024-04-17 13:06] VITALS: BMI 21.2
[2024-04-17] MEDS: ATORVASTATIN 40 MG TAB PEG/G-TUBE SCH (15:27)
[2024-04-17] MEDS: ONDANSETRON 4 MG/2 ML VIAL IVP PRN (15:27)
--- NOTE | 2024-04-17 16:20 | P.PN ---
Subjective Progress Note Date: 04/17/24 Hospital course: Patient is a very pleasant 83-year-old male with a past medical history of CAD status post stenting, hypertension, hyperlipidemia, hypothyroidism, and PEG tube dependent. He presented to the hospital on 04/15/2024 secondary to reports of fever, vomiting and cough. Upon arrival to our facility, patient underwent evaluation in the emergency department. No signs upon arrival show blood pressure 124/47, heart rate 100, respiratory rate 18, temp 100.8 F, and SpO2 of 92% on room air. EKG was completed showing sinus tachycardia at 103 bpm with a right bundle branch block. Chest x-ray completed and reported to be negative for acute cardiopulmonary process showing no suspicious infiltrate, effusion, or focal airspace opacity. Labs were completed and reviewed. CBC showing thrombocytopenia with platelet count of 77 otherwise no significant abnormalities. Coagulation profile showing a low PTT of 21.2 otherwise normal findings. BMP showing hyperchloremia with chloride of 110 and mild prerenal azotemia with BUN of 25 otherwise normal findings. Blood glucose 122. Lactic acid is 1.5. Liver profile unremarkable. Urinalysis was negative for infection. Influenza A, influenza B, RSV, COVID, and urine Legionella were all negative. Patient was admitted under our services at this time. Repeat morning chest x-ray completed showing newly developed bilateral lower lobe infiltrates. Physical exam: Patient seen and fully evaluated at bedside this morning. He reports increased coarse cough this morning otherwise denies having any complaints at this time. Vital signs reviewed and stable. General: Nontoxic, no distress and appears stated age. Derm: Skin warm and dry, normal coloration for ethnicity. Head: Atraumatic, normocephalic and symmetric. Eyes: EOMs intact, no lid lag, and anicteric sclera Mouth: no lip lesions, mucus membranes moist Cardiovascular: regular rate and rhythm with normal S1S2, no murmur, positive posterior tibial pulses bilaterally, and cap refill < 2 seconds. Lungs: Respirations even, regular, and unlabored on room air. Lungs CTA bilaterally, no rhonchi, no rales, no wheezing, and no accessory muscle usage. Abdominal: soft, nontender to palpation, no guarding, no appreciable organomegaly. PEG tube in place. Ext: ROM intact. No gross muscle atrophy, no edema, no contractures Neuro: Speech clear, face symmetrical and CN II-XII grossly intact with no noted focal neuro deficits Psych: Alert and oriented to person, place, time, and situation. Appropriate and pleasant affect. 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 -Aspiration precautions, head of bed to be elevated to 45 degrees at all times -Monitor pulse-oximetry -Duonebs scheduled 4 times daily and as needed for SOB and/or wheezing -Incentive Spirometry -Antibiotics: Rocephin 2 g daily and Zithromax 500 mg daily -Follow up on Sputum culture and Blood culture results. -Consult placed to dietitian for management of PEG tube feedings Hypertension Hyperlipidemia CAD status post stenting Continue daily medication regimen with atorvastatin 40 mg daily, lisinopril 2. 5 mg daily, metoprolol 25 mg daily, and midodrine 2.5 mg twice daily. Hypothyroidism Continue daily medication regimen with levothyroxine 125 mcg daily. Data and imaging reviewed: Repeat morning chest x-ray completed showing newly developed bilateral lower lobe infiltrates. Vital signs reviewed. Blood pressure 112/67, heart rate 79, respiratory rate 18, temp 98.3 F, and SpO2 of 96% on room air. Morning labs reviewed. CBC showing macrocytosis with MCV of 105.9 and thrombocytopenia with platelet count of 60. BMP showing mild metabolic alkalo sis with chloride of 116, bicarb of 21, and anion gap of 6 with mild prerenal azotemia with BUN of 27. Magnesium normal findings at 2.1. CODE STATUS: Full code DVT prophylaxis: Heparin Anticipated discharge date: Pending clinical course, likely 24 to [address]: Home Patient was seen independently by Nurse Pracitioner. This document was prepared using [employer] dictation software. Please allow for errors in embedded software design engineer, while rare they do occur. I reviewed the documentation as provided by the [place] above, who is the original author of this note. I agree with the documented assessment and plan, with the following changes: none Objective - Vital Signs Vital signs: Vital Signs Temp 98.3 F 04/17/24 01:02 Pulse 72 04/17/24 01:02 Resp 15 04/17/24 01:02 BP 97/58 04/17/24 01:02 Pulse Ox 93 L 06/13/24 01:02 FiO2 Intake & Output 04/16/24 04/17/24 04/17/24 18:59 06:59 18:59 Weight 63.503 kg 63.503 kg Other: Voiding Method Toilet Urinal - Labs CBC & Chem 7: 04/18/24 07:00 04/18/24 07:00 Labs: Abnormal Lab Results - Last 24 Hours (Table) 04/16/24 04/16/24 04/16/24 Range/Units 16:18 16:18 16:45 RBC 4.12 L (4.30-5.90) m/uL MCV 100.9 H (80.0-100.0) fL Plt Count 77 L (150-450) k/uL Lymphocytes # 0.3 L (1.0-4.8) k/uL APTT 21.2 L (22.0-30.0) sec Chloride 110 H (98-107) mmol/L BUN 25 H (9-20) mg/dL Glucose 122 H (74-99) mg/dL Urine Protein (Negative) Urine Blood (Negative) Urine RBC (0-5) /hpf Urine Bacteria (None) /hpf Urine Mucus (None) /hpf 04/16/24 Range/Units 23:50 RBC (4.30-5.90) m/uL MCV (80.0-100.0) fL Plt Count (150-450) k/uL Lymphocytes # (1.0-4.8) k/uL APTT (22.0-30.0) sec Chloride (98-107) mmol/L BUN (9-20) mg/dL Glucose (74-99) mg/dL Urine Protein 1+ H (Negative) Urine Blood Small H (Negative) Urine RBC 11 H (0-5) /hpf Urine Bacteria Rare H (None) /hpf Urine Mucus Rare H (None) /hpf
[2024-04-17] MEDS: IPRATROPIUM-ALBUTEROL 3 ML NEB INHALATION SCH (20:33)
[2024-04-17] MEDS: METOPROLOL SUCCINATE (ER) 25 MG TAB.ER.24H PO SCH (21:04)
[2024-04-17] MEDS: AZITHROMYCIN 500 MG TAB PO SCH (21:04)
[2024-04-18 07:53] VITALS: BP 158/88; PULSE 83; RESP 17; TEMP 98.3
[2024-04-18] MEDS: METOPROLOL TARTRATE 25 MG TAB PO SCH (07:54)
--- NOTE | 2024-04-18 09:57 | P.DS ---
Providers Date of admission: 04/16/24 19:11 Expected date of discharge: 04/18/24 Attending physician: Rianna Altman MD Primary care physician: Junior Quiroz [facility] Course: Discharge Diagnosis: Aspiration pneumonia. 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 Continue daily medication regimen with atorvastatin 40 mg daily, lisinopril 2.5 mg daily, metoprolol 25 mg daily, and midodrine 2.5 mg twice daily. Hypothyroidism. Continue daily medication regimen with levothyroxine 125 mcg daily. Hospital Course: Patient is a very pleasant 83-year-old male with a past medical history of CAD status post stenting, hypertension, hyperlipidemia, hypothyroidism, and PEG tube dependent. He presented to the hospital on 04/15/2024 secondary to reports of fever, vomiting and cough. Upon arrival to our facility, patient underwent evaluation in the emergency department. No signs upon arrival show blood pressure 124/47, heart rate 100, respiratory rate 18, temp 100.8 F, and SpO2 of 92% on room air. EKG was completed showing sinus tachycardia at 103 bpm with a right bundle branch block. Chest x-ray completed and reported to be negative for acute cardiopulmonary process showing no suspicious infiltrate, effusion, or focal airspace opacity. Labs were completed and reviewed. CBC showing thrombocytopenia with platelet count of 77 otherwise no significant abnormalities. Coagulation profile showing a low PTT of 21.2 otherwise normal findings. BMP showing hyperchloremia with chloride of 110 and mild prerenal azotemia with BUN of 25 otherwise normal findings. Blood glucose 122. Lactic acid is 1.5. Liver profile unremarkable. Urinalysis was negative for infection. Influenza A, influenza B, RSV, COVID, and urine Legionella were all negative. Patient was admitted under our services at this time. Repeat chest x-ray completed 04/17/2024 showing newly developed bilateral lower lobe infiltrates and with suspected aspiration. Patient received 3-day course of azithromycin and Rocephin. He remains afebrile and WBC within normal limits at 8.37. Had long discussion with patient regarding need to have a head of bed elevated at all times secondary to PEG tube feedings and increased risk of aspiration. Patient reports that he has a bed that elevates at home already and verbalized understanding that head of bed needs to be elevated at all times to prevent future episodes of aspiration. Patient coughing up yellow-tinged sputum, able to clear her airways without any difficulties and has had no further episodes of vomiting since arrival to our facility. He is maintaining oxygenation on room air denies having any shortness of breath at this time. Medically, patient is stable for discharge at this time. Patient to continue antibiotics with Augmentin 875/125 mg tablets via PEG tube every 12 hours for an additional 7 days to complete an antibiotic course of 10 days. Patient will need to follow-up outpatient with PCP in 1 to 2 days. Physical exam: Vital signs reviewed and stable. General: Nontoxic, no distress and appears stated age. Derm: Skin warm and dry, normal coloration for ethnicity. Head: Atraumatic, normocephalic and symmetric. Eyes: EOMs intact, no lid lag, and anicteric sclera Mouth: no lip lesions, mucus membranes moist Cardiovascular: regular rate and rhythm with normal S1S2, no murmur, positive posterior tibial pulses bilaterally, and cap refill < 2 seconds. Lungs: Respirations even, regular, and unlabored on room air. Lungs CTA bilaterally, no rhonchi, no rales, no wheezing, and no accessory muscle usage. Abdominal: soft, nontender to palpation, no guarding, no appreciable organomegaly. PEG tube in place. Ext: ROM intact. No gross muscle atrophy, no edema, no contractures Neuro: Speech clear, face symmetrical and CN II-XII grossly intact with no noted focal neuro deficits Psych: Alert and oriented to person, place, time, and situation. Appropriate and pleasant affect. A total of 36 minutes of time were spent preparing this complex discharge summar y. Pt was discharged on 04/18/2024 at 9:52 AM Patient was seen independently by Nurse Practitioner. This document was prepared using [employer] dictation software. Please allow for errors in ampoule filler and sealer while rare they do occur. I reviewed the documentation as provided by the [place] above, who is the original author of this note. I agree with the documented assessment and plan, with the following changes: none Patient Condition at Discharge: Stable Plan - Discharge Summary Discharge Rx Participant: Yes New Discharge Prescriptions: New Amoxic-Pot Clav 875-125Mg [Augmentin 875-125] 1 tab PEG/G-TUBE Q12HR 7 Days #14 tab Albuterol Inhaler [Ventolin Hfa Inhaler] 2 puff INHALATION QID PRN #8 gm PRN Reason: Shortness Of Breath Or Wheezing Continue lisinopriL [Zestril] 2.5 mg PEG/G-TUBE DAILY Metoprolol Succinate (ER) [Toprol XL] 25 mg PEG/G-TUBE HS Midodrine HCl [ProAmantine] 2.5 mg PEG/G-TUBE BID Atorvastatin [Lipitor] 40 mg PEG/G-TUBE DAILY@1500 Loratadine [Claritin] 10 mg PEG/G-TUBE DAILY@1500 Levothyroxine Sodium [Synthroid] 100 mcg PEG/G-TUBE DAILY Levothyroxine Sodium [Synthroid] 25 mcg PEG/G-TUBE GALLARDO Discharge Medication List Atorvastatin [Lipitor] 40 mg PEG/G-TUBE DAILY@1500 08/31/23 [History] Metoprolol Succinate (ER) [Toprol XL] 25 mg PEG/G-TUBE HS 08/31/23 [History] Midodrine HCl [ProAmantine] 2.5 mg PEG/G-TUBE BID 08/31/23 [History] lisinopriL [Zestril] 2.5 mg PEG/G-TUBE DAILY 08/31/23 [History] Levothyroxine Sodium [Synthroid] 25 mcg PEG/G-TUBE GALLARDO 04/16/24 [History] Levothyroxine Sodium [Synthroid] 100 mcg PEG/G-TUBE DAILY 04/16/24 [History] Loratadine [Claritin] 10 mg PEG/G-TUBE DAILY@1500 04/16/24 [History] Albuterol Inhaler [Ventolin Hfa Inhaler] 2 puff INHALATION QID PRN #8 gm 04/18/24 [Rx] Amoxic-Pot Clav 875-125Mg [Augmentin 875-125] 1 tab PEG/G-TUBE Q12HR 7 Days #14 tab 04/18/24 [Rx] Follow up Appointment(s)/Referral(s): [facility], [NON-STAFF] - As Needed Junior Quiroz DO [Primary Care Provider] - 04/22/24 8:00 am Patient Instructions/Handouts: Aspiration Pneumonia (DC) Activity/Diet/Wound Care/Special Instructions: Activity: As tolerated. Keep HOB elevated to 45 degrees at all times. Diet: Heart healthy and carb consistent diet. Avoid salts, or foods with hidden salts such as canned or boxed foods and frozen dinners. Extra salt makes your heart work harder and traps the fluid in your body for longer. Special Instructions: Take all of your medications as directed and remember to keep all of your doctor's appointments and follow-up as needed. Thank you for allowing us to participate in your care, it was truly a pleasure having you for our patient!!! . Discharge Disposition: HOME WITH HOME HEALTH SERVICES
[2024-04-18 10:33] LABS: BUN/Creat Ratio 36.43 Ratio (12.00-20.00); Blood Urea Nitrogen 25.5 mg/dL (9.0-27.0); Calcium 7.9 mg/dL (8.7-10.3); Carbon Dioxide 18.2 mmol/L (21.6-31.8); Chloride 116 mmol/L (96-109); Glucose 113 mg/dL (70-110); Magnesium 2.2 mg/dL (1.5-2.4); Sodium 146 mmol/L (135-145)
[2024-04-18] MEDS: AZITHROMYCIN 500 MG TAB PO STA (11:11)
[2024-04-18 11:13] LABS: HCT 41.9 % (39.6-50.0); HGB 13.8 g/dL (13.0-17.0); Immature Platelet Fraction 12.7 % (1.1-6.1); MCH 34.7 pg (27.0-32.0); MCHC 32.9 g/dL (32.0-37.0); MCV 105.3 FL (80.0-97.0); Mean Platelet Volume 12.5 FL (9.5-12.2); NRBC Per 100 WBC 0 X 10*3/uL (0.00-0.01); Platelet Count 71 X 10*3/uL (140-440); RBC 3.98 X 10*6/uL (4.40-5.60); RBC Morphology Normal (Normal); RDW 13.2 % (11.5-14.5); WBC 8.37 X 10*3/uL (4.50-10.00)
[2024-04-20] MEDS ORDERED: LEVOTHYROXINE 25 MCG TAB PEG/G-TUBE SCH (06:30)
== END 2024-04-18 13:00 | disposition home health service (06) | DRG 179 ==
LOC: EC 15:46 → 4SSUR 19:11
PROVIDERS: ADMIT Internal Medicine; ATTEND Internal Medicine
DX: J69.0 Pneumonitis due to inhalation of food and vomit (principal); Z20.828 Contact with and (suspected) exposure to other viral communicable diseases; Z20.822 Contact with and (suspected) exposure to COVID-19; D69.6 Thrombocytopenia, unspecified; E03.9 Hypothyroidism, unspecified; E78.5 Hyperlipidemia, unspecified; E87.8 Other disorders of electrolyte and fluid balance, not elsewhere classified; R13.10 Dysphagia, unspecified; I10 Essential (primary) hypertension; I25.2 Old myocardial infarction; I45.10 Unspecified right bundle-branch block; Z79.890 Hormone replacement therapy; Z79.899 Other long term (current) drug therapy; Z93.1 Gastrostomy status; Z95.5 Presence of coronary angioplasty implant and graft; Z87.891 Personal history of nicotine dependence
CPT/HCPCS: 36415; 71045; 71046; 80048; 80053; 81001; 83605; 83735; 85025; 85027; 85610; 85730; 87040; 87070; 87205; 87449; 87636; 93005; 94640; 96361; 96365; 96367; 96375; 99285

== ENCOUNTER 2024-04-20 20:37 | Inpatient (IN) | payer MEDICARE ==
--- NOTE | 2024-04-20 21:05 | ED ---
Abdominal Pain HPI - General Chief Complaint: Abdominal Pain Stated Complaint: Black stool, distened stomach, not eating Time Seen by Provider: 04/20/24 20:50 Source: patient, RN notes reviewed, old records reviewed Limitations: no limitations - History of Present Illness Initial Comments: This is an 83-year-old male to the ER for evaluation patient is a poor historian but presents with family for abdominal pain dark stools tarry stools blood in the stool not eating unable to drink or eat recent evaluation and admission for pneumonia MD Complaint: abdominal pain -: days(s) Location: periumbilical, epigastric, suprapubic Radiation: epigastric, suprapubic Migration to: epigastric, suprapubic Severity: moderate Severity scale (1-10): 6 Quality: sharp Consistency: intermittent Improves With: nothing Context: sick contacts Associated Symptoms: nausea, vomiting - Related Data Home Medications Medication Instructions Recorded Confirmed Atorvastatin [Lipitor] 40 mg PEG/G-TUBE DAILY@1500 08/31/23 04/21/24 Metoprolol Succinate (ER) [Toprol 25 mg PEG/G-TUBE HS 08/31/23 04/21/24 XL] Midodrine HCl [ProAmantine] 2.5 mg PEG/G-TUBE BID 08/31/23 04/21/24 lisinopriL [Zestril] 2.5 mg PEG/G-TUBE DAILY 08/31/23 04/21/24 Levothyroxine Sodium [Synthroid] 25 mcg PEG/G-TUBE GALLARDO 04/16/24 04/21/24 Levothyroxine Sodium [Synthroid] 100 mcg PEG/G-TUBE DAILY 04/16/24 04/21/24 Loratadine [Claritin] 10 mg PEG/G-TUBE DAILY@1500 04/16/24 04/21/24 Albuterol Inhaler [Ventolin Hfa 2 puff INHALATION RT-QID PRN 04/21/24 04/21/24 Inhaler] Amoxic-Pot Clav 875-125Mg 1 tab PEG/G-TUBE DIRECTED 04/21/24 04/21/24 [Augmentin 875-125] Previous Rx's Medication Instructions Recorded Pantoprazole [Protonix] 40 mg PEG/G-TUBE DAILY 90 Days #90 04/24/24 tab Sucralfate [Carafate] 1 gm PEG/G-TUBE ACHS 90 Days #360 g 04/24/24 Allergies Allergy/AdvReac Type Severity Reaction Status Date / Time No Known Allergies Allergy Verified 04/21/24 07:53 Review of Systems ROS Statement: Those systems with pertinent positive or pertinent negative responses have been documented in the HPI. ROS Other: All systems not noted in ROS Statement are negative. Past Medical History Past Medical History: Hyperlipidemia, Hypertension, Myocardial Infarction ([place]), Thyroid Disorder Additional Past Medical History / Comment(s): surgery on throat learning to speak through speech therapy. Put vein from leg in to throat. 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 Absent: scleral icterus, conjunctival injection, periorbital swelling ENT exam: Present: normal exam, mucous membranes moist Neck exam: Present: normal inspection. Absent: tenderness, meningismus, lymphadenopathy Respiratory exam: Present: normal lung sounds bilaterally. Absent: respiratory distress, wheezes, rales, rhonchi, stridor Cardiovascular Exam: Present: regular rate, normal rhythm, normal heart sounds. Absent: systolic murmur, diastolic murmur, rubs, gallop, clicks GI/Abdominal exam: Present: soft, normal bowel sounds. Absent: distended, tenderness, guarding, rebound, rigid Extremities exam: Present: normal inspection, full ROM, normal capillary refill. Absent: tenderness, pedal edema, joint swelling, calf tenderness Back exam: Present: normal inspection Neurological exam: Present: alert, oriented X3, CN II-XII intact Psychiatric exam: Present: normal affect, normal mood Skin exam: Present: warm, dry, intact, normal color. Absent: rash Course Vital Signs 04/20/24 04/20/24 04/20/24 20:39 22:00 23:00 Temperature 97.8 F Pulse Rate 96 79 84 Respiratory 20 16 16 Rate Blood Pressure 163/83 154/95 135/80 O2 Sat by Pulse 97 95 95 Oximetry 04/21/24 04/21/24 04/21/24 02:00 03:00 04:00 Temperature Pulse Rate 86 80 92 Respiratory 18 18 16 Rate Blood Pressure 145/86 164/93 168/98 O2 Sat by Pulse 95 95 95 Oximetry 04/21/24 04/21/24 04/21/24 06:00 09:01 10:29 Temperature 98 F 98.3 F Pulse Rate 73 67 74 Respiratory 18 18 16 Rate Blood Pressure 152/84 146/74 144/85 O2 Sat by Pulse 97 97 97 Oximetry 04/21/24 11:35 Temperature Pulse Rate 85 Respiratory 18 Rate Blood Pressure 139/74 O2 Sat by Pulse 97 Oximetry - Reevaluation(s) Reevaluation #1: 04/20/24 21:04 Medical record is reviewed Reevaluation #2: 04/20/24 23:34 Patient has no active bowel movements with blood here in the ER Reevaluation #3: 04/20/24 23:35 Patient informed of results and questions answered Reevaluation #4: Was pt. sent in by a medical professional or institution (, PA, NEWS CLERK, urgent care, hospital, or care home...) When possible be specific @ -no Did you speak to anyone other than the patient for history (EMS, parent, family, police, friend...)? What history was obtained from this source @ -no Did you review nursing and triage notes (agree or disagree)? Why? @ -agree Are old charts reviewed (outside hosp., previous admission, EMS record, old EKG, old radiological studies, urgent care reports/EKG's, care home records)? Report findings @ -yes Differential Diagnosis (chest pain, altered mental status, abdominal pain women, abdominal pain men, vaginal bleeding, weakness, fever, dyspnea, syncope, headache, dizziness, GI bleed, back pain, seizure, CVA, palpatations, mental health, musculoskeletal)? @ -prior EKG interpreted by me (3pts min.). @ -no X-rays interpreted by me (1pt min.). @ -no CT interpreted by me (1pt min.). @ -yes negative for acute disease U/S interpreted by me (1pt. min.). @ -no What testing was considered but not performed or refused? (CT, X-rays, U/S, labs)? Why? @ -none What meds were considered but not given or refused? Why? @ -none Did you discuss the management of the patient with other professionals (professionals i.e. , PA, NEWS CLERK, lab, RT, psych nurse, nursing home social worker, planning supervisor, teacher, sanitation officer, rn case management)? Give summary @ -no Was smoking cessation discussed for >3mins.? @ -no Was critical care preformed (if so, how long)? @ -no Were there social determinants of health that impacted care today? How? (Homelessness, low income, unemployed, alcoholism, drug addiction, transportation, low edu. Level, literacy, decrease access to med. care, fci, rehab)? @ -none Was there de-escalation of care discussed even if they declined (Discuss DNR or withdrawal of care, Hospice)? DNR status @ -no What co-morbidities impacted this encounter? (DM, HTN, Smoking, COPD, CAD, Cancer, CVA, ARF, Chemo, Hep., AIDS, mental health diagnosis, sleep apnea, morbid obesity)? @ -none Was patient admitted / discharged? Hospital course, mention meds given and route, prescriptions, significant lab abnormalities, going to OR and other pertinent info. @ - 83 male with no bloody output or bloody bowel movements no dark tarry stools here in the emergency department but does have a hemoglobin of 14 which is improved actually from prior, patient will be admitted for trending of hemoglobin secondary to history of black tarry stools and does have duodenitis persistent here in the ER, patient will continue antibiotics for pneumonia and can be admitted for observation Admitted Undiagnosed new problem with uncertain prognosis? @ -no Drug Therapy requiring intensive monitoring for toxicity (Heparin, Nitro, Insulin, Cardizem)? @ -no Were any procedures done? @ -no Diagnosis/symptom? @ -GI bleed Acute, or Chronic, or Acute on Chronic? @ -Acute Uncomplicated (without systemic symptoms) or Complicated (systemic symptoms)? @ -Complicated Side effects of treatment? @ -no Exacerbation, Progression, or Severe Exacerbation? @ -exacerbation Poses a threat to life or bodily function? How? (Chest pain, [place], NE, pneumonia, PE, COPD, DKA, ARF, appy, cholecystitis, CVA, Diverticulitis, Homicidal, Suicidal, threat to staff... and all critical care pts) @ -yes extremes of age Reevaluation #5: Differential Abdominal Pain Women: Appendicitis, Cholecystitis, diverticulosis, ischemic bowel, pancreatitis, hepatitis, UTI, gastroenteritis, AAA, incarcerated hernia, bowel obstruction, constipation, inflammatory bowel, hepatitis, peptic ulcer disease, splenic infarction, perforated viscus, vulvitis, ovarian torsion, PID, kidney stone, placenta abruption, this is not meant to be an all-inclusive list - Consultations Consultation #1: Spoke with duran who agrees to admit this patient Medical Decision Making - Medical Decision Making 83 male with no bloody output or bloody bowel movements no dark tarry stools here in the emergency department but does have a hemoglobin of 14 which is improved actually from prior, patient will be admitted for trending of hemoglobin secondary to history of black tarry stools and does have duodenitis persistent here in the ER, patient will continue antibiotics for pneumonia and can be admitted for observation - Lab Data Result diagrams: 04/24/24 05:06 04/24/24 05:06 Lab Results 04/20/24 04/20/24 04/20/24 Range/Units 21:24 21:24 21:24 WBC 10.5 (3.8-10.6) k/uL RBC 4.11 L (4.30-5.90) m/uL Hgb 14.1 (13.0-17.5) gm/dL Hct 42.4 (39.0-53.0) % MCV 103.3 H (80.0-100.0) fL MCH 34.4 (25.0-35.0) pg MCHC 33.3 (31.0-37.0) g/dL RDW 13.2 (11.5-15.5) % Plt Count 121 L D (150-450) k/uL MPV 10.6 Neutrophils % 85 % Lymphocytes % 7 % Monocytes % 5 % Eosinophils % 0 % Basophils % 1 % Neutrophils # 8.9 H (1.3-7.7) k/uL Lymphocytes # 0.7 L (1.0-4.8) k/uL Monocytes # 0.5 (0-1.0) k/uL Eosinophils # 0.0 (0-0.7) k/uL Basophils # 0.1 (0-0.2) k/uL Hypochromasia Macrocytosis Slight Sodium 145 (137-145) mmol/L Potassium 3.6 (3.5-5.1) mmol/L Chloride 113 H (98-107) mmol/L Carbon Dioxide 24 (22-30) mmol/L Anion Gap 8 mmol/L BUN 29 H (9-20) mg/dL Creatinine 0.61 L (0.66-1.25) mg/dL Est GFR (CKD-EPI)AfAm >90 (>60 ml/min/1.73 sqM) Est GFR (CKD-EPI)NonAf >90 (>60 ml/min/1.73 sqM) Glucose 109 H (74-99) mg/dL Plasma Lactic Acid Raimundo 1.7 (0.7-2.0) mmol/L Calcium 8.8 (8.4-10.2) mg/dL Phosphorus (2.5-4.5) mg/dL Magnesium (1.6-2.3) mg/dL Total Bilirubin 1.0 (0.2-1.3) mg/dL AST 55 (17-59) U/L ALT 45 (4-49) U/L Alkaline Phosphatase 83 (38-126) U/L Troponin I (0.000-0.034) ng/mL Total Protein 6.1 L (6.3-8.2) g/dL Albumin 3.3 L (3.5-5.0) g/dL Amylase 91 (30-110) U/L Lipase 139 (23-300) U/L 04/20/24 04/21/24 04/21/24 Range/Units 21:24 02:49 02:49 WBC 8.9 (3.8-10.6) k/uL RBC 4.15 L (4.30-5.90) m/uL Hgb 14.1 (13.0-17.5) gm/dL Hct 43.8 (39.0-53.0) % MCV 105.7 H (80.0-100.0) fL MCH 34.0 (25.0-35.0) pg MCHC 32.1 (31.0-37.0) g/dL RDW 13.1 (11.5-15.5) % Plt Count 125 L (150-450) k/uL MPV 9.6 Neutrophils % 89 % Lymphocytes % 5 % Monocytes % 4 % Eosinophils % 0 % Basophils % 0 % Neutrophils # 7.9 H (1.3-7.7) k/uL Lymphocytes # 0.5 L (1.0-4.8) k/uL Monocytes # 0.4 (0-1.0) k/uL Eosinophils # 0.0 (0-0.7) k/uL Basophils # 0.0 (0-0.2) k/uL Hypochromasia Macrocytosis Moderate Sodium 146 H (137-145) mmol/L Potassium 3.6 (3.5-5.1) mmol/L Chloride 119 H (98-107) mmol/L Carbon Dioxide 21 L (22-30) mmol/L Anion Gap 6 mmol/L BUN 27 H (9-20) mg/dL Creatinine 0.60 L (0.66-1.25) mg/dL Est GFR (CKD-EPI)AfAm >90 (>60 ml/min/1.73 sqM) Est GFR (CKD-EPI)NonAf >90 (>60 ml/min/1.73 sqM) Glucose 120 H (74-99) mg/dL Plasma Lactic Acid Raimundo (0.7-2.0) mmol/L Calcium 8.2 L (8.4-10.2) mg/dL Phosphorus 2.7 (2.5-4.5) mg/dL Magnesium 2.2 (1.6-2.3) mg/dL Total Bilirubin 0.9 (0.2-1.3) mg/dL AST 48 (17-59) U/L ALT 43 (4-49) U/L Alkaline Phosphatase 72 (38-126) U/L Troponin I 0.026 (0.000-0.034) ng/mL Total Protein 5.7 L (6.3-8.2) g/dL Albumin 3.0 L (3.5-5.0) g/dL Amylase (30-110) U/L Lipase (23-300) U/L 04/22/24 04/22/24 Range/Units 07:15 07:15 WBC 7.2 (3.8-10.6) k/uL RBC 3.78 L (4.30-5.90) m/uL Hgb 13.0 (13.0-17.5) gm/dL Hct 40.7 (39.0-53.0) % MCV 107.6 H (80.0-100.0) fL MCH 34.5 (25.0-35.0) pg MCHC 32.0 (31.0-37.0) g/dL RDW 13.0 (11.5-15.5) % Plt Count 123 L (150-450) k/uL MPV 8.9 Neutrophils % % Lymphocytes % % Monocytes % % Eosinophils % % Basophils % % Neutrophils # (1.3-7.7) k/uL Lymphocytes # (1.0-4.8) k/uL Monocytes # (0-1.0) k/uL Eosinophils # (0-0.7) k/uL Basophils # (0-0.2) k/uL Hypochromasia Slight Macrocytosis Moderate Sodium 148 H (137-145) mmol/L Potassium 3.6 (3.5-5.1) mmol/L Chloride 120 H (98-107) mmol/L Carbon Dioxide 21 L (22-30) mmol/L Anion Gap 7 mmol/L BUN 25 H (9-20) mg/dL Creatinine 0.64 L (0.66-1.25) mg/dL Est GFR (CKD-EPI)AfAm >90 (>60 ml/min/1.73 sqM) Est GFR (CKD-EPI)NonAf >90 (>60 ml/min/1.73 sqM) Glucose 132 H (74-99) mg/dL Plasma Lactic Acid Raimundo (0.7-2.0) mmol/L Calcium 8.4 (8.4-10.2) mg/dL Phosphorus (2.5-4.5) mg/dL Magnesium (1.6-2.3) mg/dL Total Bilirubin (0.2-1.3) mg/dL AST (17-59) U/L ALT (4-49) U/L Alkaline Phosphatase (38-126) U/L Troponin I (0.000-0.034) ng/mL Total Protein (6.3-8.2) g/dL Albumin (3.5-5.0) g/dL Amylase (30-110) U/L Lipase (23-300) U/L - Radiology Data Radiology results: report reviewed (He had a positive positive for duodenitis), image reviewed Disposition Clinical Impression: Pneumonia, Abdominal pain, Duodenitis Disposition: ADMITTED IP TO THIS HOSP Condition: Stable Is patient prescribed a controlled substance at d/c from ED?: No Time of Disposition: 23:30
[2024-04-20] MEDS: ONDANSETRON 4 MG/2 ML VIAL IVP STA (21:25)
[2024-04-20] MEDS: SODIUM CHLORIDE 0.9% 1,000 ML IV STA (21:29)
--- NOTE | 2024-04-20 21:58 | CT ---
EXAMINATION TYPE: CT abdomen pelvis wo con CT DLP: 503.7 mGycm, Automated exposure control for dose reduction was used. DATE OF EXAM: 04/20/2024 9:42 PM COMPARISON: CT abdomen pelvis most recent from 01/28/2024 CLINICAL INDICATION:Male, 83 years old with history of abdominal pain; pain, nausea, dark stools. hx of stomach ulcers. TECHNIQUE: Axial CT abdomen pelvis wo con;Sagittal and coronal reformats were created on a separate workstation. Contrast used: mL of , (none if empty) Oral contrast used: without Oral Contrast (none if empty) FINDINGS: LOWER CHEST: Cardiac conduction leads terminating in the right ventricle and right atrium. Right lowe r lobe airspace opacities with bronchiectasis and with a few opacified large airways. ABDOMEN LIVER: Unremarkable GALLBLADDER AND BILE DUCTS: Unremarkable. PANCREAS: Pancreatic neck cyst is less well appreciated on noncontrast CT. SPLEEN: Unremarkable. ADRENAL GLANDS: Unremarkable. KIDNEYS AND URETERS: No evidence of hydronephrosis or renal calculus. The ureters are unremarkable. B ilateral simple renal cysts. PELVIS BLADDER: Unremarkable REPRODUCTIVE: Prostate is enlarged in size measuring 5.0 cm in transverse dimension. ABDOMEN & PELVIS STOMACH AND BOWEL: Facet joint changes are seen around the duodenum and in the upper abdomen. No free air or organizing fluid collection identified at this time. There is residual wall thickening of the duodenum measuring up to 9 mm. No Evidence of bowel obstruction. PEG tube in appropriate position. PERITONEUM/RETROPERITONEUM: No evidence of pneumoperitoneum or free fluid. VASCULATURE: Infrarenal abdominal fusiform aneurysmal dilation measuring 43 x 37 mm. Dilation of the common iliac arteries bilaterally measuring up to 2.0 cm on the right and 2.47 m in the left. MUSCULO SKELETAL: No acute osseous abnormalities LYMPH NODES: No gross evidence for lymphadenopathy. SOFT TISSUE/ABDOMINAL WALL: Bilateral fat-containing inguinal hernias. IMPRESSION: 1. Fat stranding changes around the duodenum possibly relating to ulcer. No evidence for free air or organizing fluid collection at this time. There is also evidence of duodenitis involving the second and first portions. GI consultation recommended. 2. Right lower lobe airspace opacities with opacified large airways correlate for/aspiration. Prosta tomegaly, correlate serum PSA. 3. PEG tube appropriately placed in the gastric lumen. 4. Infrarenal abdominal aortic aneurysm and fusiform dilation of the common iliac arteries.
[2024-04-20 22:09] LABS: ALT 45 U/L (4-49); AST 55 U/L (17-59); African American GFR (CKD) >90 (>60 ml/min/1.73 sqM); Albumin 3.3 g/dL (3.5-5.0); Alkaline Phosphatase 83 U/L (38-126); Amylase 91 U/L (30-110); Anion Gap 8 mmol/L; Blood Urea Nitrogen 29 mg/dL (9-20); Calcium 8.8 mg/dL (8.4-10.2); Carbon Dioxide 24 mmol/L (22-30); Chloride 113 mmol/L (98-107); Glucose 109 mg/dL (74-99); Lipase 139 U/L (23-300); Non-African American GFR(CKD) >90 (>60 ml/min/1.73 sqM); Potassium 3.6 mmol/L (3.5-5.1); Sodium 145 mmol/L (137-145); Total Protein 6.1 g/dL (6.3-8.2)
[2024-04-20 22:45] LABS: Basophils # (A) 0.1 k/uL (0-0.2); Basophils % (A) 1 %; Eosinophils % (A) 0 %; HCT 42.4 % (39.0-53.0); HGB 14.1 gm/dL (13.0-17.5); Lymphocytes # (A) 0.7 k/uL (1.0-4.8); Lymphocytes % (A) 7 %; MCH 34.4 pg (25.0-35.0); MCHC 33.3 g/dL (31.0-37.0); MCV 103.3 fL (80.0-100.0); Macrocytosis Slight; Mean Platelet Volume 10.6; Monocytes # (A) 0.5 k/uL (0-1.0); Monocytes % (A) 5 %; Neutrophils # (A) 8.9 k/uL (1.3-7.7); Neutrophils % (A) 85 %; RBC 4.11 m/uL (4.30-5.90); RDW 13.2 % (11.5-15.5); WBC 10.5 k/uL (3.8-10.6)
[2024-04-20 22:49] LABS: Platelet Count 121 k/uL (150-450)
[2024-04-20] MEDS ORDERED: ONDANSETRON 4 MG/2 ML VIAL IVP PRN (23:32)
[2024-04-20] MEDS ORDERED: NALOXONE 0.4 MG/ML 1 ML VIAL IV PRN (23:32)
[2024-04-20] MEDS ORDERED: MORPHINE SULFATE 4 MG/ML SYRINGE IV PRN (23:32)
[2024-04-21] MEDS: PIPERACILLIN-TAZOBACTAM 3.375 GM in SODIUM CHLORIDE 0.9% 100 ML IVPB STA (00:36)
[2024-04-21] MEDS: SODIUM CHLORIDE 0.9% 1,000 ML IV SCH (00:37)
--- NOTE | 2024-04-21 01:02 | P.HPIM ---
History of Present Illness H&P Date: 04/20/24 Chief Complaint: abdominal pain Patient seen 04/20/24 The patient is an 83 y.o male who was recently hospitalized for aspiration pna. The patient was discharged on Sunday and since discharge he has been unable to tolerate any food. He has had abdominal pain and nausea. The patient is tube fed and states that he has been weak sicne discharge. The patient has a home health care who saw him today and recommended that the patient be referred to the ED after he reported melanotic stools. Th patient had a Hb of 14.1. The patient was recently hospitalized for aspiration pna and was discharged to complete a course of Augmentin. He is on TF because if his aspiration pna. The patient was afebrile with a temp of 97.8, pulse of 96, RR of 20 and a BP of 163/83. The patient had a CT scan that showed duodenitis and he received Zosyn IV and was hospitalized for further workup and management. Review of Systems Constitutional: Reports weakness Gastrointestinal: Reports abdominal pain, Reports loss of appetite, Reports nausea, Reports vomiting Past Medical History Past Medical History: Hyperlipidemia, Hypertension, Myocardial Infarction ([place]), Thyroid Disorder Additional Past Medical History / Comment(s): surgery on throat learning to speak through speech therapy. Put vein from leg in to throat. 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 Type of Cardiac Device: Permanent Pacemaker Device Placement Date:: 2021 Past Psychological History: No Psychological Hx Reported Smoking Status: Former smoker Past Alcohol Use History: None Reported Past Drug Use History: None Reported Medications and Allergies Home Medications Medication Instructions Recorded Confirmed Type Atorvastatin [Lipitor] 40 mg PEG/G-TUBE DAILY@1500 08/31/23 04/16/24 History Metoprolol Succinate (ER) [Toprol 25 mg PEG/G-TUBE HS 08/31/23 04/16/24 History XL] Midodrine HCl [ProAmantine] 2.5 mg PEG/G-TUBE BID 08/31/23 04/16/24 History lisinopriL [Zestril] 2.5 mg PEG/G-TUBE DAILY 08/31/23 04/16/24 History Levothyroxine Sodium [Synthroid] 25 mcg PEG/G-TUBE GALLARDO 04/16/24 04/16/24 History Levothyroxine Sodium [Synthroid] 100 mcg PEG/G-TUBE DAILY 04/16/24 04/16/24 History Loratadine [Claritin] 10 mg PEG/G-TUBE DAILY@1500 04/16/24 04/16/24 History Albuterol Inhaler [Ventolin Hfa 2 puff INHALATION QID PRN #8 gm 04/18/24 Rx Inhaler] Amoxic-Pot Clav 875-125Mg 1 tab PEG/G-TUBE Q12HR 7 Days #14 04/18/24 Rx [Augmentin 875-125] tab Allergies Allergy/AdvReac Type Severity Reaction Status Date / Time No Known Allergies Allergy Verified 04/20/24 20:45 Physical Exam Vitals: Vital Signs Temp Pulse Resp BP Pulse Ox 04/20/24 23:00 84 16 135/80 95 04/20/24 22:00 79 16 154/95 95 04/20/24 20:39 97.8 F 96 20 163/83 97 Intake and Output 04/20/24 04/20/24 04/21/24 14:59 22:59 06:59 Other: Weight 65.771 kg - Constitutional General appearance: average body habitus - EENT Eyes: PERRLA - Respiratory Respiratory: bilateral: diminished - Cardiovascular Rhythm: regular - Gastrointestinal General gastrointestinal: normal bowel sounds (plus PEG), tenderness - Integumentary Integumentary: normal turgor - Neurologic Neurologic: CNII-XII intact - Musculoskeletal Musculoskeletal: generalized weakness Results CBC & Chem 7: 04/20/24 21:24 04/20/24 21:24 Labs: Abnormal Lab Results - Last 24 Hours (Table) 04/20/24 04/20/24 Range/Units 21:24 21:24 RBC 4.11 L (4.30-5.90) m/uL MCV 103.3 H (80.0-100.0) fL Plt Count 121 L D (150-450) k/uL Neutrophils # 8.9 H (1.3-7.7) k/uL Lymphocytes # 0.7 L (1.0-4.8) k/uL Chloride 113 H (98-107) mmol/L BUN 29 H (9-20) mg/dL Creatinine 0.61 L (0.66-1.25) mg/dL Glucose 109 H (74-99) mg/dL Total Protein 6.1 L (6.3-8.2) g/dL Albumin 3.3 L (3.5-5.0) g/dL Assessment and Plan (1) Duodenitis Narrative/Plan: Will treat with IV Zosyn, monitor , clear liquids, HB stable will monitor Current Visit: Yes Status: Acute Code(s): K29.80 - DUODENITIS WITHOUT BLEEDING SNOMED Code(s): 04509371 (2) Pneumonia Narrative/Plan: recent aspiration on Augmentin will hold patient on IV Zosyn Current Visit: Yes Status: Acute Code(s): J18.9 - PNEUMONIA, UNSPECIFIED ORGANISM SNOMED Code(s): 938685721 (3) Abdominal pain Narrative/Plan: secondary to duodenitis , IV abx , IV Morphine prn Current Visit: Yes Status: Acute Code(s): R10.9 - UNSPECIFIED ABDOMINAL PAIN SNOMED Code(s): 33055580 (4) Complaint of melena Narrative/Plan: will monitor HB likely secondary to duodenitis Current Visit: Yes Status: Acute Code(s): K92.1 - MELENA SNOMED Code(s): 7685262 Plan: Continue IV abx, pain control, Aspiration precautions
[2024-04-21 03:07] LABS: Basophils % (A) 0 %; Eosinophils % (A) 0 %; HCT 43.8 % (39.0-53.0); HGB 14.1 gm/dL (13.0-17.5); Lymphocytes # (A) 0.5 k/uL (1.0-4.8); Lymphocytes % (A) 5 %; MCHC 32.1 g/dL (31.0-37.0); MCV 105.7 fL (80.0-100.0); Macrocytosis Moderate; Mean Platelet Volume 9.6; Monocytes # (A) 0.4 k/uL (0-1.0); Monocytes % (A) 4 %; Neutrophils # (A) 7.9 k/uL (1.3-7.7); Neutrophils % (A) 89 %; Platelet Count 125 k/uL (150-450); RBC 4.15 m/uL (4.30-5.90); RDW 13.1 % (11.5-15.5); WBC 8.9 k/uL (3.8-10.6)
[2024-04-21 03:22] LABS: ALT 43 U/L (4-49); AST 48 U/L (17-59); African American GFR (CKD) >90 (>60 ml/min/1.73 sqM); Alkaline Phosphatase 72 U/L (38-126); Anion Gap 6 mmol/L; Blood Urea Nitrogen 27 mg/dL (9-20); Calcium 8.2 mg/dL (8.4-10.2); Carbon Dioxide 21 mmol/L (22-30); Chloride 119 mmol/L (98-107); Glucose 120 mg/dL (74-99); Magnesium 2.2 mg/dL (1.6-2.3); Non-African American GFR(CKD) >90 (>60 ml/min/1.73 sqM); Phosphorus 2.7 mg/dL (2.5-4.5); Potassium 3.6 mmol/L (3.5-5.1); Sodium 146 mmol/L (137-145); Total Bilirubin 0.9 mg/dL (0.2-1.3); Total Protein 5.7 g/dL (6.3-8.2)
[2024-04-21] MEDS: PIPERACILLIN-TAZOBACTAM 3.375 GM in SODIUM CHLORIDE 0.9% 100 ML IVPB SCH (03:51)
[2024-04-21] MEDS: PANTOPRAZOLE 40 MG/10 ML VIAL IV SCH (09:00)
[2024-04-21 14:33] VITALS: BMI 22.4
--- NOTE | 2024-04-21 18:29 | P.PN ---
Subjective Progress Note Date: 04/21/24 83-year-old male with PMH of CAD, hypertension, dyslipidemia, hypothyroidism presents the ED for abdominal pain, nausea and vomiting. Apparently, family reported [employer] colored vomitus and dark stool since his recent discharge. He was recently admitted from 04/16-04/18 and treated for aspiration pneumonia. In the ED, he underwent extensive evaluation. BP 163/83, HR 96, RR 20, T 97.8F, 97% on RA. CBC RBC 4.11, MCV 103.3, Plt 121. CMP Cl 113, BUN 29, Cr 0.61, glu 109, total protein 6.1, albumin 3.3. Lactic acid 1.7. Troponin 0.026. Amylase 91. Lipase 139. CT AP fat stranding around the duodenum possibly related to ulcer, evidence of duodenitis, right lower lobe opacities, infrarenal AAA. Patient is admitted for further workup and management. 04/21 Patient was seen and examined. No melena or vomiting since admission. Requesting tube feed to be restarted. CBC RBC 4.15 MCV 105.7 Plt 125. CMP Na 146, Cl 119, bicarb 21, BUN 27, Cr 0.6, glu 120, Ca 8.2. Mag 2.2. General: non toxic, no distress, appears at stated age Derm: warm, dry Head: atraumatic, normocephalic, symmetric Eyes: EOMI, no lid lag, pale sclera Mouth: no lip lesion, mucus membranes moist Cardiovascular: S1S2 regular, no murmur Lungs: CTA bilateral, no rhonchi, no rales , no accessory muscle use Abdominal: soft, nontender to palpation, no guarding, no appreciable organomegaly, PEG in place Ext: no gross muscle atrophy, no edema, no contractures Neuro: no focal neuro deficits Psych: Alert, oriented, appropriate affect Based on my assessment of this patient, this patient meets a high complexity level of care. Active Melena: Stool occult blood ordered. Protonix 40 mg IV QD. Surgery consult. Duodenitis: Started on Zosyn 3.375g IV TID. Aspiration pneumonia: Zosyn as above. Aspiration precautions. Elevated HOB. Prerenal azotemia: Continue NS at 75 cc/hr. Hypernatremia: Hopeful improvement with IV hydration. Chronic: Hypertension Dyslipidemia Hypothyroidism CODE STATUS: FULL DVT Prophylaxis: SCD GI Prophylaxis: Protonix IV Designated medical POA if patient is not able to make medical decisions for themselves: I have reviewed the following business process consultant notes: I have reviewed the results of the following tests: CBC, CMP, Mag I have ordered the following tests: CBC, BMP I have discussed the care of this patient with the following independent historian: YANDEL I have independently interpreted the following test below: I have discussed the management of this patient with the following physician: Objective - Vital Signs Vital signs: Vital Signs Temp 97.7 F 04/21/24 12:00 Pulse 77 04/21/24 12:00 Resp 17 04/21/24 12:00 BP 149/82 04/21/24 12:00 Pulse Ox 97 04/21/24 12:00 FiO2 Intake & Output 04/20/24 04/21/24 04/21/24 18:59 06:59 18:59 Intake Total 1296 Balance 1296 Weight 65.771 kg 67 kg Intake: Tube Feeding 1296 - Labs CBC & Chem 7: 04/21/24 02:49 04/21/24 02:49 Labs: Abnormal Lab Results - Last 24 Hours (Table) 04/20/24 04/20/24 04/21/24 Range/Units 21:24 21:24 02:49 RBC 4.11 L 4.15 L (4.30-5.90) m/uL MCV 103.3 H 105.7 H (80.0-100.0) fL Plt Count 121 L D 125 L (150-450) k/uL Neutrophils # 8.9 H 7.9 H (1.3-7.7) k/uL Lymphocytes # 0.7 L 0.5 L (1.0-4.8) k/uL Sodium (137-145) mmol/L Chloride 113 H (98-107) mmol/L Carbon Dioxide (22-30) mmol/L BUN 29 H (9-20) mg/dL Creatinine 0.61 L (0.66-1.25) mg/dL Glucose 109 H (74-99) mg/dL Calcium (8.4-10.2) mg/dL Total Protein 6.1 L (6.3-8.2) g/dL Albumin 3.3 L (3.5-5.0) g/dL 04/21/24 Range/Units 02:49 RBC (4.30-5.90) m/uL MCV (80.0-100.0) fL Plt Count (150-450) k/uL Neutrophils # (1.3-7.7) k/uL Lymphocytes # (1.0-4.8) k/uL Sodium 146 H (137-145) mmol/L Chloride 119 H (98-107) mmol/L Carbon Dioxide 21 L (22-30) mmol/L BUN 27 H (9-20) mg/dL Creatinine 0.60 L (0.66-1.25) mg/dL Glucose 120 H (74-99) mg/dL Calcium 8.2 L (8.4-10.2) mg/dL Total Protein 5.7 L (6.3-8.2) g/dL Albumin 3.0 L (3.5-5.0) g/dL
[2024-04-21] MEDS: MIDODRINE 5 MG TAB PEG/G-TUBE SCH (21:29)
[2024-04-22 07:54] LABS: HCT 40.7 % (39.0-53.0); Hypochromasia Slight; MCH 34.5 pg (25.0-35.0); MCV 107.6 fL (80.0-100.0); Macrocytosis Moderate; Mean Platelet Volume 8.9; Platelet Count 123 k/uL (150-450); RBC 3.78 m/uL (4.30-5.90); WBC 7.2 k/uL (3.8-10.6)
[2024-04-22 08:05] LABS: African American GFR (CKD) >90 (>60 ml/min/1.73 sqM); Anion Gap 7 mmol/L; Blood Urea Nitrogen 25 mg/dL (9-20); Calcium 8.4 mg/dL (8.4-10.2); Carbon Dioxide 21 mmol/L (22-30); Chloride 120 mmol/L (98-107); Glucose 132 mg/dL (74-99); Non-African American GFR(CKD) >90 (>60 ml/min/1.73 sqM); Potassium 3.6 mmol/L (3.5-5.1); Sodium 148 mmol/L (137-145)
[2024-04-22] MEDS: LEVOTHYROXINE 100 MCG TAB PEG/G-TUBE SCH (08:33)
[2024-04-22] MEDS: ATORVASTATIN 40 MG TAB PEG/G-TUBE SCH (08:33)
[2024-04-22] MEDS: LORATADINE 10 MG TAB PEG/G-TUBE SCH (08:33)
[2024-04-22] MEDS: DEXTROSE 5%-0.45% NACL 1,000 ML IV SCH (08:34)
--- NOTE | 2024-04-22 11:17 | P.GSCN ---
History of Present Illness Consult date: 04/22/24 History of present illness: CHIEF COMPLAINT: Black stools HISTORY OF PRESENT ILLNESS: This is a 83-year-old male who presented to the hospital with complaints of black stools for several months. Patient reports that he has a black stool daily they have been loose. He denies any abdominal pain. He denies any nausea or vomiting. Patient does have a history of peptic ulcer disease. Patient also apparently had some abdominal distention. A CT scan of abdomen pelvis was completed that reported fat stranding changes around the duodenum possibly related to ulcer. No evidence for free air or organized fluid collection. There is also evidence of duodenitis involving the second and first portions. Patient had recent hospitalization for pneumonia. Patient denies any NSAID use. History was obtained from both patient and patient's grandson. He denies any NSAID use. PAST MEDICAL HISTORY: Hyperlipidemia, Hypertension, Myocardial Infarction ([place]), Thyroid Disorder, patient had surgery on his throat. Put vein from leg in to throat. Patient is on feeding tube PAST SURGICAL HISTORY: Adenoidectomy, Heart Catheterization With Stent, Tonsillectomy MEDICATIONS: See below ALLERGIES: See below SOCIAL HISTORY: No illicit drug use. REVIEW OF SYSTEMS: CONSTITUTIONAL: Denies fever or chills. HEENT: Denies blurred vision, vision changes, or eye pain. Denies hemoptysis CARDIOVASCULAR: Denies chest pain or pressure. RESPIRATORY: No shortness of breath. GASTROINTESTINAL: See HPI for pertinent findings HEMATOLOGIC: Denies bleeding disorders. GENITOURINARY: Denies any blood in urine or increased urinary frequency. SKIN: Denies pruitis. Denies rash. PHYSICAL EXAM: VITAL SIGNS: Reviewed GENERAL: Well-developed in no acute distress. HEENT: No sclera icterus. Extraocular movements grossly intact. Moist buccal mucosa. Head is atraumatic, normocephalic. No nasal drainage. ABDOMEN: Soft. Nondistended. Nontender. PEG tube site clean dry and intact NEUROLOGIC: Alert and oriented. Cranial nerves II through XII grossly intact. LABORATORY DATA: WBC 7.2 Hgb 14-13.0 platelets 123 Sodium is 148 potassium 3.6 creatinine 0.64 IMAGING: CT scan abdomen pelvis reports fat stranding changes around the duodenum possible related to ulcer. No evidence for free air organizing fluid collection. Evidence of duodenitis involving the second and first portions. Right lower lobe airspace opacity correlate for aspiration. Prostamegaly. PEG tube appropriate position. Intraforaminal abdominal aortic aneurysm. ASSESSMENT: 1. GI bleed with melanotic stools 2. Duodenitis with possible duodenal ulcer noted on CT scan 3. Pneumonia PLAN: -Patient scheduled for EGD on with Dr. Flores -Increase Protonix to twice a day -Continue to monitor hemoglobin -Continue to monitor for any signs or symptoms of bleeding -Okay to continue tube feeds for now Physician Electrician Journeyman Wireman note has been reviewed by physician. Signing provider agrees with the documented findings, assessment, and plan of care. I have personally seen and examined the patient, reviewed the [employer] /PAs history, exam and MDM and agree with the assessment and plan as written. Based on total visit time, I have performed more than 50% of the visit. As above: Patient with black stools and inflammatory changes around the duodenum. Agree with presumptive diagnosis of peptic ulcer disease. Continue antiacids. May resume low volume tube feeds. Plan EGD on . Past Medical History Past Medical History: Coronary Artery Disease (CAD), GI Bleed, Hyperlipidemia, Hypertension, Myocardial Infarction ([place]), Thyroid Disorder Additional Past Medical History / Comment(s): surgery on throat learning to speak through speech therapy. Put vein from leg in to throat. 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 Type of Cardiac Device: Permanent Pacemaker Device Placement Date:: 2021 Past Psychological History: No Psychological Hx Reported Smoking Status: Former smoker Past Alcohol Use History: None Reported Past Drug Use History: None Reported Medications and Allergies Home Medications Medication Instructions Recorded Confirmed Type Atorvastatin [Lipitor] 40 mg PEG/G-TUBE DAILY@1500 08/31/23 04/21/24 History Metoprolol Succinate (ER) [Toprol 25 mg PEG/G-TUBE HS 08/31/23 04/21/24 History XL] Midodrine HCl [ProAmantine] 2.5 mg PEG/G-TUBE BID 08/31/23 04/21/24 History lisinopriL [Zestril] 2.5 mg PEG/G-TUBE DAILY 08/31/23 04/21/24 History Levothyroxine Sodium [Synthroid] 25 mcg PEG/G-TUBE GALLARDO 04/16/24 04/21/24 History Levothyroxine Sodium [Synthroid] 100 mcg PEG/G-TUBE DAILY 04/16/24 04/21/24 History Loratadine [Claritin] 10 mg PEG/G-TUBE DAILY@1500 04/16/24 04/21/24 History Albuterol Inhaler [Ventolin Hfa 2 puff INHALATION RT-QID PRN 04/21/24 04/21/24 History Inhaler] Amoxic-Pot Clav 875-125Mg 1 tab PEG/G-TUBE DIRECTED 04/21/24 04/21/24 History [Augmentin 875-125] Allergies Allergy/AdvReac Type Severity Reaction Status Date / Time No Known Allergies Allergy Verified 04/21/24 07:53 Surgical - Exam Vital Signs Temp Pulse Resp BP Pulse Ox 97.8 F 96 20 163/83 97 04/20/24 20:39 04/20/24 20:39 04/20/24 20:39 04/20/24 20:39 04/20/24 20:39 Results - Labs 04/22/24 07:15 04/22/24 07:15 Abnormal Lab Results - Last 24 Hours (Table) 04/22/24 04/22/24 Range/Units 07:15 07:15 RBC 3.78 L (4.30-5.90) m/uL MCV 107.6 H (80.0-100.0) fL Plt Count 123 L (150-450) k/uL Sodium 148 H (137-145) mmol/L Chloride 120 H (98-107) mmol/L Carbon Dioxide 21 L (22-30) mmol/L BUN 25 H (9-20) mg/dL Creatinine 0.64 L (0.66-1.25) mg/dL Glucose 132 H (74-99) mg/dL Diabetes panel 04/22/24 Range/Units 07:15 Sodium 148 H (137-145) mmol/L Potassium 3.6 (3.5-5.1) mmol/L Chloride 120 H (98-107) mmol/L Carbon Dioxide 21 L (22-30) mmol/L BUN 25 H (9-20) mg/dL Creatinine 0.64 L (0.66-1.25) mg/dL Glucose 132 H (74-99) mg/dL Calcium 8.4 (8.4-10.2) mg/dL Calcium panel 04/22/24 Range/Units 07:15 Calcium 8.4 (8.4-10.2) mg/dL Pituitary panel 04/22/24 Range/Units 07:15 Sodium 148 H (137-145) mmol/L Potassium 3.6 (3.5-5.1) mmol/L Chloride 120 H (98-107) mmol/L Carbon Dioxide 21 L (22-30) mmol/L BUN 25 H (9-20) mg/dL Creatinine 0.64 L (0.66-1.25) mg/dL Glucose 132 H (74-99) mg/dL Calcium 8.4 (8.4-10.2) mg/dL Adrenal panel 04/22/24 Range/Units 07:15 Sodium 148 H (137-145) mmol/L Potassium 3.6 (3.5-5.1) mmol/L Chloride 120 H (98-107) mmol/L Carbon Dioxide 21 L (22-30) mmol/L BUN 25 H (9-20) mg/dL Creatinine 0.64 L (0.66-1.25) mg/dL Glucose 132 H (74-99) mg/dL Calcium 8.4 (8.4-10.2) mg/dL
[2024-04-22] MEDS ORDERED: IPRATROPIUM-ALBUTEROL 3 ML NEB INHALATION PRN (18:06)
--- NOTE | 2024-04-22 18:17 | P.PN ---
Subjective Progress Note Date: 04/22/24 Hospital course: Patient is a very pleasant 83-year-old male with a past medical history of CAD status post stenting, hypertension, hyperlipidemia, hypothyroidism, and PEG tube dependent. He presented to the hospital on 04/20/2024 with a chief complaint of inability to tolerate oral intake/tube feeds, nausea, diffuse abdominal discomfort, melena and increasing weakness status post recent hospitalization for aspiration pneumonia. On arrival to our facility, patient underwent evaluation in the emergency department. Vital signs upon arrival show blood pressure 163/83, heart rate 96, respiratory rate 20, temp 97.8 F, SpO2 of 97% on room air. Labs completed and reviewed. CBC showing stable hemoglobin of 14.1 and thrombocytopenia with platelet count of 121. BMP revealing hyperchloremia with chloride of 113 and prerenal azotemia with BUN of 29. Blood glucose was 109. Lactic acid was 1.7. Calcium 8.8. Liver profile unremarkable with exception of hypoalbuminemia with albumin of 3.3. Troponin was 0.026. CT abdomen and pelvis without contrast was completed showing fat stranding changes around the duodenum concerning for ulcer with no evidence of free air or organized fluid collection, right lower lobe airspace opacities with opacified large airways concerning for aspiration, prostamegaly, and infrarenal abdominal aortic aneurysm and fusiform dilation of the common iliac arteries. Patient was admitted under our services with consultation to general surgery for evaluation reports of melena and diffuse abdominal pain with concerns of CT finding showing fat stranding around the duodenum concerning for ulcer. Vascular Surgery consulted for findings of abdominal aortic aneurysm with fusiform dilation of the common iliac arteries. Physical exam: Patient seen and fully evaluated at bedside this morning. Patient reports having approximately 2 episodes of black tarry stools daily. Currently denies having any abdominal pain or discomfort. Reports his cough continues to improve daily. Vital signs reviewed and stable. General: Nontoxic, no distress and appears stated age. Derm: Skin warm and dry, normal coloration for ethnicity. Head: Atraumatic, normocephalic and symmetric. Eyes: EOMs intact, no lid lag, and anicteric sclera Mouth: no lip lesions, mucus membranes moist Cardiovascular: regular rate and rhythm with normal S1S2, no murmur, positive posterior tibial pulses bilaterally, and cap refill < 2 seconds. Lungs: Respirations even, regular, and unlabored on room air. Lungs CTA bilaterally, no rhonchi, no rales, no wheezing, and no accessory muscle usage. Abdominal: soft, nontender to palpation, no guarding, no appreciable organomegaly. PEG tube in place. Ext: ROM intact. No gross muscle atrophy, no edema, no contractures Neuro: Speech clear, face symmetrical and CN II-XII grossly intact with no noted focal neuro deficits Psych: Alert and oriented to person, place, time, and situation. Appropriate and pleasant affect. Assessment and Plan of Care: GI bleed, with reports of melena Duodenitis with CT findings concerning for ulcer Thrombocytopenia -Continue Protonix 40 mg IVP twice daily -General surgery following, planning to take patient for EGD -Continue close monitoring of hemoglobin and transfuse for hemoglobin less than 7. Hypernatremia -0.9% normal saline infusion discontinued and patient started on D5.45 at 75 cc/h while n.p.o. pending completion of EGD. -Continue close monitoring of sodium levels with repeat BMP, additional changes to be made to maintenance fluids if indicated based upon these findings. Infrarenal abdominal aortic aneurysm and fusiform dilation of the common iliac arteries -Consult placed to vascular surgery for evaluation. Recent diagnosis of Aspiration pneumonia PEG tube dependent secondary to dysphagia -Telemetry monitoring. -Aspiration precautions, head of bed to be elevated to 45 degrees at all times -Monitor pulse-oximetry -Duonebs as needed for SOB and/or wheezing -Incentive Spirometry -Antibiotics: Zosyn 3.375 g every 8 hours -Consult placed to dietitian for management of PEG tube feedings Hypertension Hyperlipidemia CAD status post stenting Continue daily medication regimen with atorvastatin 40 mg daily, lisinopril 2.5 mg daily, metoprolol 25 mg daily, and midodrine 2.5 mg twice daily. Hypothyroidism Continue daily medication regimen with levothyroxine 125 mcg daily. Data and imaging reviewed: -CT abdomen and pelvis without contrast was completed showing fat stranding changes around the duodenum concerning for ulcer with no evidence of free air or organized fluid collection, right lower lobe airspace opacities with opacified large airways concerning for aspiration, prostamegaly, and infrarenal abdominal aortic aneurysm and fusiform dilation of the common iliac arteries. -Morning labs reviewed. Hemoglobin remained stable at 13.0 with platelet count of 123. BMP showing hyponatremia with sodium of 148, hyperchloremia with ch loride of 120, and hypocarbia with bicarb of 21. Renal function showing continued elevation of BUN at 25 with creatinine of 0.64 and GFR greater than 90. Blood glucose 132. -Vital signs reviewed. Blood pressure 143/80, heart rate 72, respiratory rate 18, temp 97.3 F, SpO2 of 94% on room air. CODE STATUS: Full code DVT prophylaxis: LALA reddy and SCDs secondary to GI bleed Anticipated discharge date: Pending clinical course Anticipated discharge place: Home Patient was seen independently by Nurse Pracitioner. This document was prepared using [employer] dictation software. Please allow for errors in director part, while rare they do occur. Piter Kidd NP rendered care for this patient independently, reviewed the findings and plan as documented in the note above. I did not physically speak with or examine the patient on this date. Objective - Vital Signs Vital signs: Vital Signs Temp 97.3 F L 04/22/24 07:38 Pulse 72 04/22/24 07:38 Resp 18 04/22/24 07:38 BP 143/80 04/22/24 07:38 Pulse Ox 94 L 04/22/24 07:38 FiO2 Intake & Output 04/21/24 04/22/24 04/22/24 18:59 06:59 18:59 Intake Total 1296 Balance 1296 Weight 67 kg 66.4 kg Intake: Tube Feeding 1296 Other: Voiding Method Toilet Toilet Urinal - Labs CBC & Chem 7: 04/23/24 05:51 04/23/24 05:51 Labs: Abnormal Lab Results - Last 24 Hours (Table) 04/22/24 04/22/24 Range/Units 07:15 07:15 RBC 3.78 L (4.30-5.90) m/uL MCV 107.6 H (80.0-100.0) fL Plt Count 123 L (150-450) k/uL Sodium 148 H (137-145) mmol/L Chloride 120 H (98-107) mmol/L Carbon Dioxide 21 L (22-30) mmol/L BUN 25 H (9-20) mg/dL Creatinine 0.64 L (0.66-1.25) mg/dL Glucose 132 H (74-99) mg/dL
[2024-04-22] MEDS: PANTOPRAZOLE 40 MG/10 ML VIAL IV SCH (20:47)
[2024-04-22] MEDS: METOPROLOL TARTRATE 12.5 MG TAB PEG/G-TUBE SCH (20:47)
[2024-04-23 08:34] LABS: HCT 35.8 % (39.6-50.0); HGB 11.3 g/dL (13.0-17.0); MCH 33.6 pg (27.0-32.0); MCHC 31.6 g/dL (32.0-37.0); MCV 106.5 FL (80.0-97.0); Mean Platelet Volume 11.2 FL (9.5-12.2); NRBC Per 100 WBC 0 X 10*3/uL (0.00-0.01); Platelet Count 116 X 10*3/uL (140-440); RBC 3.36 X 10*6/uL (4.40-5.60); RDW 13.2 % (11.5-14.5)
[2024-04-23 08:52] LABS: BUN/Creat Ratio 24.86 Ratio (12.00-20.00); Blood Urea Nitrogen 17.4 mg/dL (9.0-27.0); Calcium 8.1 mg/dL (8.7-10.3); Carbon Dioxide 22.9 mmol/L (21.6-31.8); Chloride 109 mmol/L (96-109); Glucose 104 mg/dL (70-110); Magnesium 2.1 mg/dL (1.5-2.4); Potassium 3.4 mmol/L (3.5-5.5); Sodium 142 mmol/L (135-145)
--- NOTE | 2024-04-23 10:41 | P.GSCN ---
History of Present Illness Consult date: 04/23/24 Reason for Consult: Infrarenal abdominal aortic aneurysm Requesting physician: Piter Kidd History of present illness: This is a pleasant 83-year-old male with multiple comorbidities including hyperlipidemia, hypertension, myocardial infarction, coronary artery disease status post stent and pacemaker, thyroid disease, history of throat surgery and has PEG tube for feeding, and former smoker. Patient presented to the emergency department with complaints of abdominal distention, black stool and decreased appetite. On presentation hemoglobin was 14.1 with repeat yesterday 13.0 and today 11.3. He is not on any anticoagulation. He had a CT of the abdomen pelvis without contrast reporting abdominal aortic aneurysm as well as common iliac artery dilation. Vascular surgery was consulted for the above. Patient admitted with consult to general surgery for melena. He is scheduled for upper endoscopy tomorrow. He denies any abdominal pain at this time, no nausea or vomiting. Denies any back pain. Denies any previous knowledge of abdominal aortic aneurysm. Reviewing patient's chart he had a CT of the abdomen pelvis with contrast in January 2024 as well showing abdominal aortic aneurysm with common iliac artery dilation. He denies any chest pain, abdominal pain, shortness of breath, back pain, lower extremity pain, nausea or vomiting at this time. Review of Systems A 14 point review systems was completed all pertinent positives and negatives as stated in the HPI. Past Medical History Past Medical History: Coronary Artery Disease (CAD), GI Bleed, Hyperlipidemia, Hypertension, Myocardial Infarction (OK), Thyroid Disorder Additional Past Medical History / Comment(s): surgery on throat learning to speak through speech therapy. Put vein from leg in to throat. 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 Type of Cardiac Device: Permanent Pacemaker Device Placement Date:: 2021 Past Psychological History: No Psychological Hx Reported Smoking Status: Former smoker Past Alcohol Use History: None Reported Past Drug Use History: None Reported Medications and Allergies Home Medications Medication Instructions Recorded Confirmed Type Atorvastatin [Lipitor] 40 mg PEG/G-TUBE DAILY@1500 08/31/23 04/21/24 History Metoprolol Succinate (ER) [Toprol 25 mg PEG/G-TUBE HS 08/31/23 04/21/24 History XL] Midodrine HCl [ProAmantine] 2.5 mg PEG/G-TUBE BID 08/31/23 04/21/24 History lisinopriL [Zestril] 2.5 mg PEG/G-TUBE DAILY 08/31/23 04/21/24 History Levothyroxine Sodium [Synthroid] 25 mcg PEG/G-TUBE GALLARDO 04/16/24 04/21/24 History Levothyroxine Sodium [Synthroid] 100 mcg PEG/G-TUBE DAILY 04/16/24 04/21/24 History Loratadine [Claritin] 10 mg PEG/G-TUBE DAILY@1500 04/16/24 04/21/24 History Albuterol Inhaler [Ventolin Hfa 2 puff INHALATION RT-QID PRN 04/21/24 04/21/24 History Inhaler] Amoxic-Pot Clav 875-125Mg 1 tab PEG/G-TUBE DIRECTED 04/21/24 04/21/24 History [Augmentin 875-125] Allergies Allergy/AdvReac Type Severity Reaction Status Date / Time No Known Allergies Allergy Verified 04/21/24 07:53 Surgical - Exam Vital Signs Temp Pulse Resp BP Pulse Ox 97.8 F 96 20 163/83 97 04/20/24 20:39 04/20/24 20:39 04/20/24 20:39 04/20/24 20:39 04/20/24 20:39 General appearance: The patient is alert, oriented, appears in no acute distress. HET: Head is normocephalic and atraumatic. Neck: Supple. Heart: Regular. Lungs: Equal expansion, normal respiratory effort. Abdomen: Soft, nontender, nondistended. PEG tube in place clamped. Extremities: Normal skin color and turgor. Palpable bilateral femoral pulses, palpable bilateral DP pulses, left weaker than right. Neurological: Alert and oriented x 3. Results - Labs 04/23/24 05:51 04/23/24 05:51 Abnormal Lab Results - Last 24 Hours (Table) 04/23/24 04/23/24 Range/Units 05:51 05:51 RBC 3.36 L (4.40-5.60) X 10*6/uL Hgb 11.3 L (13.0-17.0) g/dL Hct 35.8 L (39.6-50.0) % MCV 106.5 H (80.0-97.0) FL MCH 33.6 H (27.0-32.0) pg MCHC 31.6 L (32.0-37.0) g/dL Plt Count 116 L (140-440) X 10*3/uL Potassium 3.4 L (3.5-5.5) mmol/L BUN/Creatinine Ratio 24.86 H (12.00-20.00) Ratio Calcium 8.1 L (8.7-10.3) mg/dL Diabetes panel 04/23/24 Range/Units 05:51 Sodium 142 (135-145) mmol/L Potassium 3.4 L (3.5-5.5) mmol/L Chloride 109 (96-109) mmol/L Carbon Dioxide 22.9 (21.6-31.8) mmol/L BUN 17.4 (9.0-27.0) mg/dL Creatinine 0.7 (0.6-1.5) mg/dL Glucose 104 (70-110) mg/dL Calcium 8.1 L (8.7-10.3) mg/dL Calcium panel 04/23/24 Range/Units 05:51 Calcium 8.1 L (8.7-10.3) mg/dL Pituitary panel 04/23/24 Range/Units 05:51 Sodium 142 (135-145) mmol/L Potassium 3.4 L (3.5-5.5) mmol/L Chloride 109 (96-109) mmol/L Carbon Dioxide 22.9 (21.6-31.8) mmol/L BUN 17.4 (9.0-27.0) mg/dL Creatinine 0.7 (0.6-1.5) mg/dL Glucose 104 (70-110) mg/dL Calcium 8.1 L (8.7-10.3) mg/dL Adrenal panel 04/23/24 Range/Units 05:51 Sodium 142 (135-145) mmol/L Potassium 3.4 L (3.5-5.5) mmol/L Chloride 109 (96-109) mmol/L Carbon Dioxide 22.9 (21.6-31.8) mmol/L BUN 17.4 (9.0-27.0) mg/dL Creatinine 0.7 (0.6-1.5) mg/dL Glucose 104 (70-110) mg/dL Calcium 8.1 L (8.7-10.3) mg/dL - Imaging Comments: CT abdomen pelvis without contrast reports fat stranding changes around the duodenum possibly relating to ulcer. No evidence for free air or organizing fluid collection at this time. There is also evidence of duodenitis involving the second and first portions. GI consultation recommended. Right lower lobe airspace opacities with opacified large airway correlate for aspiration. Prostatomegaly, correlate serum PSA. PEG tube appropriately placed in the gastric lumen. Infrarenal aortic aneurysm and fusiform dilation of the common iliac arteries. Infrarenal abdominal fusiform aneurysm dilation measuring 43 x 37 mm. Dilation of the common iliac arteries bilaterally measuring up to 2.0 cm on the right and 2.47 cm in the left. Assessment and Plan Assessment: 1. Asymptomatic infrarenal abdominal aortic aneurysm with bilateral common iliac dilation, stable from 01/2024 2. Melena 3. Duodenitis with possible duodenal ulcer noted on CT scan 3. Pneumonia 4. History of coronary artery disease status post stenting and pacemaker 5. History of hypertension and hyperlipidemia 6. Former smoker Plan: CT abdomen pelvis without contrast reviewed. Also compared with CT abdomen pelvis with contrast in January 2024 with stable findings. Will get a CT angiogram abdomen and pelvis for further evaluation of AAA and iliac artery dilation. There is no indication for any urgent vascular surgical intervention at this time. Further recommendations forthcoming based on CT angiogram. Patient follow-up with vascular surgery in outpatient setting. Thank you for this consultation, we will continue to follow. The impression and plan of care has been dictated as directed. Dr. Richey I performed a history and examination of this patient, discussed the same with the dictator. I agree with the dictator's note ,documented as a scribe. Any additional findings or plans will be noted.
--- NOTE | 2024-04-23 13:38 | P.PN ---
Subjective Progress Note Date: 04/23/24 CHIEF COMPLAINT: Black stools HISTORY OF PRESENT ILLNESS: Patient reports that his melanotic stools have stopped. He denies any abdominal pain. Denies any nausea or vomiting. Afebrile. Hemoglobin did drop from 13-11.3 potassium 3.4 PHYSICAL EXAM: VITAL SIGNS: Reviewed. GENERAL: Well-developed in no acute distress. ABDOMEN: Soft. Nondistended. Nontender. NEUROLOGIC: Alert and oriented. Cranial nerves II through XII grossly intact. ASSESSMENT: 1. GI bleed with melanotic stools 2. Duodenitis with possible duodenal ulcer noted on CT scan 3. Pneumonia 4. Hypokalemia PLAN: -Patient scheduled for EGD tomorrow with Dr. Flores -Hold tube feedings after midnight -Continue to monitor hemoglobin -Replace potassium Physician Spine Nurse note has been reviewed by physician. Signing provider agrees with the documented findings, assessment, and plan of care. Objective - Vital Signs Vital signs: Vital Signs Temp 98.4 F 04/23/24 11:39 Pulse 66 04/23/24 11:39 Resp 20 04/23/24 11:39 BP 142/83 04/23/24 11:39 Pulse Ox 90 L 04/23/24 07:12 FiO2 Intake & Output 04/22/24 04/23/24 04/23/24 18:59 06:59 18:59 Intake Total 1296 Output Total 600 300 Balance -600 996 Weight 67 kg 67 kg Intake: Tube Feeding 1296 Output: Urine 600 300 Other: Voiding Method Toilet # Voids 1 # Bowel Movements 1 1 - Labs CBC & Chem 7: 04/23/24 05:51 04/23/24 05:51 Labs: Abnormal Lab Results - Last 24 Hours (Table) 04/23/24 04/23/24 Range/Units 05:51 05:51 RBC 3.36 L (4.40-5.60) X 10*6/uL Hgb 11.3 L (13.0-17.0) g/dL Hct 35.8 L (39.6-50.0) % MCV 106.5 H (80.0-97.0) FL MCH 33.6 H (27.0-32.0) pg MCHC 31.6 L (32.0-37.0) g/dL Plt Count 116 L (140-440) X 10*3/uL Potassium 3.4 L (3.5-5.5) mmol/L BUN/Creatinine Ratio 24.86 H (12.00-20.00) Ratio Calcium 8.1 L (8.7-10.3) mg/dL
--- NOTE | 2024-04-23 14:57 | CT ---
EXAMINATION TYPE: CT angio abdomen pelvis DATE OF EXAM: 04/23/2024 COMPARISON: 04/20/2024 INDICATION: AAA DLP: 1355 mGycm, Automated exposure control for dose reduction was used. CONTRAST: 100 mL of Isovue 370. Study performed without Oral Contrast TECHNIQUE: Axial images were obtained from above the diaphragm to the pubic rami in the axial plane a t 5 mm thick sections. Reconstructed images are reviewed on the computer in the coronal plane. FINDINGS: Limited CT sections are obtained the lung bases. Small bilateral pleural effusions are present. Ther e is likely some compressive atelectasis or possibly pneumonia dependent lung bases.. Coronary arter y calcification is noted. CT ABDOMEN: PEG tube enters the stomach. Liver: Normal Spleen: Normal Pancreas: Normal Adrenal glands: The adrenal glands are normal. Gallbladder: Normal Kidneys: No masses are evident. No hydronephrosis is present. There is a cyst in the superior anter ior right upper pole kidney. A lateral cyst is within the mid left kidney measuring 2.1 cm. Delayed images were obtained through the kidneys, which remain unremarkable. Aorta: Vascular calcification is within the aorta. Aorta at the diaphragm measurers 2.8 cm. Celiac a xis and superior mesenteric arteries appear normal. Aorta just below the superior mesenteric artery m easures 1.8 cm. Renal artery origins appear normal. There is aneurysmal dilatation of the mid abdominal aorta. This has a maximum AP diameter of 4.4 cm. The flow lumen is smaller measuring 2.1 cm. This appears nearly normal at the bifurcation. The bilate ral proximal common iliac arteries are aneurysmal measuring 2.4 cm on the left and 2.4 cm on the righ t. Internal and external iliac vessels are patent. External iliac arteries are patent to the common f emoral arteries. Some narrowing of the right distal common femoral artery near the profunda femoris a nd superficial femoral artery bifurcation may be present. Calcifications also noted at the distal lef t common femoral artery. Inferior vena cava: Normal. CT PELVIS: Loops of bowel within the abdomen and pelvis are normal. There are loops of bowel which are incom pletely distended or lack oral contrast limiting their evaluation. Appendix: Normal as visualized. Urinary bladder: Normal. Genitourinary structures: Prostate is prominent Osseous structures: No suspicious lytic or sclerotic lesions. IMPRESSION: 1. 4.4 cm abdominal aortic aneurysm beginning below the renal arteries. This narrows at the aortic b ifurcation although the proximal common iliac arteries are also aneurysmal bilaterally. Flow lumen wi thin the abdominal aortic aneurysm is smaller than the maximum AP diameter of the aortic aneurysm. 2. Small bilateral pleural effusions with adjacent compressive atelectasis and/or pneumonia
[2024-04-23] MEDS: POTASSIUM BICARBONATE/CIT AC 20 MEQ TABLET.EFF PEG/G-TUBE ONE (15:55)
--- NOTE | 2024-04-23 17:18 | P.PN ---
Subjective Progress Note Date: 04/23/24 Hospital course: Patient is a very pleasant 83-year-old male with a past medical history of CAD status post stenting, hypertension, hyperlipidemia, hypothyroidism, and PEG tube dependent. He presented to the hospital on 04/20/2024 with a chief complaint of inability to tolerate oral intake/tube feeds, nausea, diffuse abdominal discomfort, melena and increasing weakness status post recent hospitalization for aspiration pneumonia. On arrival to our facility, patient underwent evaluation in the emergency department. Vital signs upon arrival show blood pressure 163/83, heart rate 96, respiratory rate 20, temp 97.8 F, SpO2 of 97% on room air. Labs completed and reviewed. CBC showing stable hemoglobin of 14.1 and thrombocytopenia with platelet count of 121. BMP revealing hyperchloremia with chloride of 113 and prerenal azotemia with BUN of 29. Blood glucose was 109. Lactic acid was 1.7. Calcium 8.8. Liver profile unremarkable with exception of hypoalbuminemia with albumin of 3.3. Troponin was 0.026. CT abdomen and pelvis without contrast was completed showing fat stranding changes around the duodenum concerning for ulcer with no evidence of free air or organized fluid collection, right lower lobe airspace opacities with opacified large airways concerning for aspiration, prostamegaly, and infrarenal abdominal aortic aneurysm and fusiform dilation of the common iliac arteries. Patient was admitted under our services with consultation to general surgery for evaluation reports of melena and diffuse abdominal pain with concerns of CT finding showing fat stranding around the duodenum concerning for ulcer. Vascular Surgery consulted for findings of abdominal aortic aneurysm with fusiform dilation of the common iliac arteries. Physical exam: Patient seen and fully evaluated at bedside this morning. Reports feeling better this morning and currently denies having any further episodes of black tarry stools since yesterday morning. Patient is scheduled to undergo EGD tomorrow with general surgery. Patient currently denies having any complaints including chest pain, shortness of breath, abdominal pain, nausea, vomiting, or any other complaints at this time. Vital signs reviewed and stable. General: Nontoxic, no distress and appears stated age. Derm: Skin warm and dry, normal coloration for ethnicity. Head: Atraumatic, normocephalic and symmetric. Eyes: EOMs intact, no lid lag, and anicteric sclera Mouth: no lip lesions, mucus membranes moist Cardiovascular: regular rate and rhythm with normal S1S2, no murmur, positive posterior tibial pulses bilaterally, and cap refill < 2 seconds. Lungs: Respirations even, regular, and unlabored on room air. Lungs CTA bilaterally, no rhonchi, no rales, no wheezing, and no accessory muscle usage. Abdominal: soft, nontender to palpation, no guarding, no appreciable organomegaly. PEG tube in place. Ext: ROM intact. No gross muscle atrophy, no edema, no contractures Neuro: Speech clear, face symmetrical and CN II-XII grossly intact with no noted focal neuro deficits Psych: Alert and oriented to person, place, time, and situation. Appropriate and pleasant affect. Assessment and Plan of Care: GI bleed, with reports of melena Acute blood loss anemia Duodenitis with CT findings concerning for ulcer Thrombocytopenia -Continue Protonix 40 mg IVP twice daily -General surgery following, planning to take patient for EGD 04/24/2024 -Continue close monitoring of hemoglobin and transfuse for hemoglobin less than 7. Currently hemoglobin stable at 11.3, but has had nearly a 3 g drop in hemoglobin levels since admission. Hypernatremia, improved -Continue D5.45 at 75 cc/h while n.p.o. pending completion of EGD. -Continue close monitoring of sodium levels with repeat BMP, additional changes to be made to maintenance fluids if indicated based upon these findings. Infrarenal abdominal aortic aneurysm and fusiform dilation of the common iliac arteries -Consult placed to vascular surgery for evaluation. Recent diagnosis of Aspiration pneumonia PEG tube dependent secondary to dysphagia -Telemetry monitoring. -Aspiration precautions, head of bed to be elevated to 45 degrees at all times -Monitor pulse-oximetry -Duonebs as needed for SOB and/or wheezing -Incentive Spirometry -Antibiotics: Zosyn 3.375 g every 8 hours -Consult placed to dietitian for management of PEG tube feedings Hypertension Hyperlipidemia CAD status post stenting Continue daily medication regimen with atorvastatin 40 mg daily, lisinopril 2.5 mg daily, metoprolol 25 mg daily, and midodrine 2.5 mg twice daily. Hypothyroidism Continue daily medication regimen with levothyroxine 125 mcg daily. Data and imaging reviewed: -CT abdomen and pelvis without contrast was completed showing fat stranding changes around the duodenum concerning for ulcer with no evidence of free air or organized fluid collection, right lower lobe airspace opacities with opacified large airways concerning for aspiration, prostamegaly, and infrarenal abdominal aortic aneurysm and fusiform dilation of the common iliac arteries. -Morning labs reviewed. CBC showing acute blood loss anemia with hemoglobin of 11.3 and thrombocytopenia with platelet count of 116. BMP showing hypokalemia with potassium of 3.4 and was replaced by general surgery. Magnesium normal findings at 2.1. -Vital signs reviewed. Blood pressure 146/76, heart rate 63, respiratory rate 20, temp 97.8 F, and SpO2 of 90% on room air. CODE STATUS: Full code DVT prophylaxis: LALA reddy and SCDs secondary to GI bleed Anticipated discharge date: Pending clinical course Anticipated discharge place: Home Patient was seen independently by Nurse Pracitioner. This document was prepared using [employer] dictation software. Please allow for errors in manager training and development, while rare they do occur. Piter Kidd NP rendered care for this patient independently, reviewed the findings and plan as documented in the note above. I did not physically speak with or examine the patient on this date. Objective - Vital Signs Vital signs: Vital Signs Temp 97.8 F 04/23/24 07:12 Pulse 63 04/23/24 07:12 Resp 20 04/23/24 07:12 BP 146/76 04/23/24 07:12 Pulse Ox 90 L 04/23/24 07:12 FiO2 Intake & Output 04/22/24 04/23/24 04/23/24 18:59 06:59 18:59 Output Total 600 300 Balance -600 -300 Weight 67 kg Output: Urine 600 300 Other: Voiding Method Toilet # Voids 1 # Bowel Movements 1 - Labs CBC & Chem 7: 04/23/24 05:51 04/23/24 05:51 Labs: Abnormal Lab Results - Last 24 Hours (Table) 04/22/24 04/22/24 Range/Units 07:15 07:15 RBC 3.78 L (4.30-5.90) m/uL MCV 107.6 H (80.0-100.0) fL Plt Count 123 L (150-450) k/uL Sodium 148 H (137-145) mmol/L Chloride 120 H (98-107) mmol/L Carbon Dioxide 21 L (22-30) mmol/L BUN 25 H (9-20) mg/dL Creatinine 0.64 L (0.66-1.25) mg/dL Glucose 132 H (74-99) mg/dL
[2024-04-24 01:37] VITALS: RESP 18
[2024-04-24 05:59] LABS: HCT 38.2 % (39.0-53.0); HGB 12.1 gm/dL (13.0-17.5); MCH 33.9 pg (25.0-35.0); MCHC 31.8 g/dL (31.0-37.0); MCV 106.6 fL (80.0-100.0); Macrocytosis Moderate; Mean Platelet Volume 9.4; Platelet Count 140 k/uL (150-450); RBC 3.58 m/uL (4.30-5.90); RDW 13.1 % (11.5-15.5); WBC 5.5 k/uL (3.8-10.6)
[2024-04-24 06:25] LABS: African American GFR (CKD) >90 (>60 ml/min/1.73 sqM); Anion Gap 5 mmol/L; Blood Urea Nitrogen 16 mg/dL (9-20); Calcium 8.3 mg/dL (8.4-10.2); Carbon Dioxide 24 mmol/L (22-30); Chloride 111 mmol/L (98-107); Glucose 86 mg/dL (74-99); Non-African American GFR(CKD) 85 (>60 ml/min/1.73 sqM); Potassium 3.4 mmol/L (3.5-5.1); Sodium 140 mmol/L (137-145)
[2024-04-24] MEDS: LACTATED RINGERS 1,000 ML IV SCH (07:32)
[2024-04-24] MEDS: POTASSIUM BICARBONATE/CIT AC 20 MEQ TABLET.EFF PEG/G-TUBE ONE (09:08)
[2024-04-24] MEDS ORDERED: PHENYLEPHRINE 10 MG/ML VIAL ONE (12:18)
[2024-04-24] MEDS ORDERED: LIDOCAINE 2% (PF) 20 MG/ML 5 ML VIAL ONE (12:18)
[2024-04-24] MEDS ORDERED: PROPOFOL 10 MG/ML 20 ML VIAL IV ONE (12:18)
[2024-04-24] MEDS: IV FLUID CONTINUATION 100 ML IV ONE (12:19)
[2024-04-24 12:28] VITALS: BP 126/70; PULSE 62; TEMP 98.4
--- NOTE | 2024-04-24 12:44 | P.PCN ---
Date of Procedure: 04/24/24 Procedure(s) Performed: Preoperative Dx: Upper GI bleed Postoperative Dx: Duodenal ulcer, duodenitis, gastritis Procedure: EGD with Bx Anesthesia: Sedation Endoscopist: Dr. Flores Specimens: Duodenum, antrum Endoscopic Procedure: The patient was on the endoscopy table in the left decubitus position. The Olympus gastroscope was inserted into the oropharynx and passed under direct visualization to the region of the third portion of the duodenum. From that point the scope was slowly withdrawn inspecting all surfaces carefully. There were inflammatory changes throughout the first and second portion of the duodenum. There were multiple superficial ulcerations noted. Biopsies were taken. No active bleeding was seen. The pylorus was widely patent. There was mild gastritis with a few small erosions in the stomach as well. Biopsy of the antrum took place. The previous PEG tube was in place. The proximal esophagus appeared normal. There are mild scattered inflammatory changes throughout the esophagus without neoplastic changes or significant stricture formation noted. The patient was then taken to the recovery room in stable condition per anesthesia guidelines. Recommendations: Continue antiacid therapy. Resume tube feeds. If patient has signs of active bleeding from the duodenal ulcer consider tertiary care eval for angioembolization.
--- NOTE | 2024-04-24 13:43 | P.PN ---
Subjective Progress Note Date: 04/24/24 Principal diagnosis: AAA Patient is seen and examined today as a follow-up. He denies any chest pain, shortness of breath, abdominal pain, nausea or vomiting. He is scheduled to have upper endoscopy done today with general surgery. CT angiogram abdomen pelvis reviewed reporting 4.4 cm abdominal aortic aneurysm with bilateral proximal common iliac arteries aneurysmal measuring 2.4 cm on the left and 2.4 cm on the right. Objective - Vital Signs Vital signs: Vital Signs Temp 98.3 F 04/24/24 07:20 Pulse 69 04/24/24 07:20 Resp 18 04/24/24 07:20 BP 129/78 04/24/24 07:20 Pulse Ox 94 L 04/24/24 07:20 FiO2 Intake & Output 04/23/24 04/24/24 04/24/24 18:59 06:59 18:59 Intake Total 1296 Output Total 300 250 Balance 996 -250 Weight 67 kg 66 kg Intake: Tube Feeding 1296 Output: Urine 300 250 Other: Voiding Method Toilet # Bowel Movements 1 - Exam General appearance: The patient is alert, oriented, appears in no acute distress. HET: Head is normocephalic and atraumatic. Conjunctiva pink. Sclera anicteric. Neck: Supple without lymphadenopathy. Abdomen: Soft, nontender, nondistended. Extremities: Normal skin color and turgor. No pedal edema Skin: No rashes, no jaundice Neurological: No focal deficits. Alert and oriented. - Labs CBC & Chem 7: 04/24/24 05:06 04/24/24 05:06 Labs: Abnormal Lab Results - Last 24 Hours (Table) 04/23/24 04/23/24 04/24/24 Range/Units 05:51 05:51 05:06 RBC 3.36 L 3.58 L (4.40-5.60) X 10*6/uL Hgb 11.3 L 12.1 L (13.0-17.0) g/dL Hct 35.8 L 38.2 L (39.6-50.0) % MCV 106.5 H 106.6 H (80.0-97.0) FL MCH 33.6 H (27.0-32.0) pg MCHC 31.6 L (32.0-37.0) g/dL Plt Count 116 L 140 L (140-440) X 10*3/uL Potassium 3.4 L (3.5-5.5) mmol/L Chloride (98-107) mmol/L BUN/Creatinine Ratio 24.86 H (12.00-20.00) Ratio Calcium 8.1 L (8.7-10.3) mg/dL 04/24/24 Range/Units 05:06 RBC (4.40-5.60) X 10*6/uL Hgb (13.0-17.0) g/dL Hct (39.6-50.0) % MCV (80.0-97.0) FL MCH (27.0-32.0) pg MCHC (32.0-37.0) g/dL Plt Count (140-440) X 10*3/uL Potassium 3.4 L (3.5-5.5) mmol/L Chloride 111 H (98-107) mmol/L BUN/Creatinine Ratio (12.00-20.00) Ratio Calcium 8.3 L (8.7-10.3) mg/dL Assessment and Plan Assessment: 1. Asymptomatic infrarenal abdominal aortic aneurysm with bilateral common iliac dilation, stable from 01/2024 2. Melena 3. Duodenitis with possible duodenal ulcer noted on CT scan 3. Pneumonia 4. History of coronary artery disease status post stenting and pacemaker 5. History of hypertension and hyperlipidemia 6. Former smoker Plan: CT angiogram abdomen pelvis reviewed. There is no indication for any vascular surgical intervention at this time. Recommend outpatient follow-up and discuss repair if abdominal aortic aneurysm reaches 5 cm and common iliac arteries reach 3 cm. Continue rest of medical management per primary medical team. Thank you for this consultation, we will sign off at this time. The impression and plan of care has been dictated as directed. Dr. Richey I performed a history and examination of this patient, discussed the same with the dictator. I agree with the dictator's note ,documented as a scribe. Any additional findings or plans will be noted.
--- NOTE | 2024-04-24 16:04 | P.DS ---
Providers Date of admission: 04/22/24 11:23 Expected date of discharge: 04/24/24 Attending physician: Amna Lyman MD Consults: 04/21/24 18:23 Consult Physician Routine Consulting Provider: Moise Flores Consult Reason/Comments: GI bleed? Do you want consulting provider notified?: Yes 04/22/24 18:01 Consult Physician Routine Consulting Provider: Edilia Richey Consult Reason/Comments: infrarenal abdominal aortic aneurysm and fusiform dilation of the common il Do you want consulting provider notified?: Yes [facility] Course: Discharge Diagnosis: GI bleed, with reports of melena. Patient underwent EGD with biopsy which revealed inflammatory changes throughout the first and second portion of the duodenum consistent with duodenitis and multiple superficial ulcerations with mild gastritis and a few small erosions in the stomach. As stated biopsies were taken and patient to follow-up with general surgery for results at follow-up appointment. General surgeon stated that if patient again has any signs of bleeding from ulcer, he will need to follow-up at a tertiary facility for angioembolization of the ulcers. Acute blood loss anemia. Hemoglobin is stable at 12.1 at time of discharge. Duodenitis with peptic ulcer. Gastritis. Bicytopenia with Anemia and Thrombocytopenia. Hemoglobin is stable at 12.1 with platelet count of 140 at time of discharge. Hypernatremia, resolved. Infrarenal abdominal aortic aneurysm and fusiform dilation of the common iliac arteries. Vascular surgery evaluated and stated no indication for any vascular surgical intervention at this time recommend patient follow-up outpatient to discuss repair if abdominal aortic aneurysm reaches 5 cm and/or common iliac arteries reach 3 cm. Recent diagnosis of Aspiration pneumonia. Received IV antibiotics with Zosyn throughout hospitalization and discharged home to complete previously prescribed antibiotic course of Augmentin 875/125 mg twice daily. PEG tube dependent secondary to dysphagia, Resume PEG tube feedings. Aspiration precautions with head of bed to be elevated to 45 degrees at all times Hypertension. Continue daily medication regimen with lisinopril 2.5 mg daily, metoprolol 25 mg daily, and midodrine 2.5 mg twice daily. Hyperlipidemia. Continue daily medication regimen with atorvastatin 40 mg daily. CAD status post stenting. Continue daily medication regimen with atorvastatin 40 mg daily, lisinopril 2.5 mg daily, metoprolol 25 mg daily, and midodrine 2.5 mg twice daily. Hypothyroidism. Continue daily medication regimen with levothyroxine 125 mcg daily. Hospital course: Patient is a very pleasant 83-year-old male with a past medical history of CAD status post stenting, hypertension, hyperlipidemia, hypothyroidism, and PEG tube dependent. He presented to the hospital on 04/20/2024 with a chief complaint of inability to tolerate oral intake/tube feeds, nausea, diffuse abdominal discomfort, melena and increasing weakness status post recent hospitalization for aspiration pneumonia. On arrival to our facility, patient underwent evaluation in the emergency department. Vital signs upon arrival show blood pressure 163/83, heart rate 96, respiratory rate 20, temp 97.8 F, SpO2 of 97% on room air. Labs completed and reviewed. CBC showing stable hemoglobin of 14.1 and thrombocytopenia with platelet count of 121. BMP revealing hyperchloremia with chloride of 113 and prerenal azotemia with BUN of 29. Blood glucose was 109. Lactic acid was 1.7. Calcium 8.8. Liver profile unremarkable with exception of hypoalbuminemia with albumin of 3.3. Troponin was 0.026. CT abdomen and pelvis without contrast was completed showing fat stranding changes around the duodenum concerning for ulcer with no evidence of free air or organized fluid collection, right lower lobe airspace opacities with opacified large airways concerning for aspiration, prostamegaly, and infrarenal abdominal aortic aneurysm and fusiform dilation of the common iliac arteries. Patient was admitted under our services with consultation to general surgery for evaluation reports of melena and diffuse abdominal pain with concerns of CT finding showing fat stranding around the duodenum concerning for ulcer. Vascular Surgery consulted for findings of abdominal aortic aneurysm with fusiform dilation of the common iliac arteries. Vascular surgery evaluated and stated no indication for any vascular surgical intervention at this time recommend patient follow-up outpatient to discuss repair if abdominal aortic aneurysm reaches 5 cm and/or common iliac arteries reach 3 cm. Patient underwent EGD with biopsy which revealed inflammatory changes throughout the first and second portion of the duodenum consistent with duodenitis and multiple superficial ulcerations with mild gastritis and a few small erosions in the stomach. As stated biopsies were taken and patient to follow-up with general surgery for results at follow-up appointment. Hemoglobin is stable at 12.1 with platelet count of 140 at time of discharge. Patient has been cleared by vascular surgery and general surgery. He is medically stable for discharge at this time. He is being discharged home with [facility]. Patient to follow-up outpatient with PCP in 2 to 3 days, general surgery in 1 to 2 weeks, and vascular surgery in 4 weeks. Physical exam: Vital signs reviewed and stable. General: Nontoxic, no distress and appears stated age. Derm: Skin warm and dry, normal coloration for ethnicity. Head: Atraumatic, normocephalic and symmetric. Eyes: EOMs intact, no lid lag, and anicteric sclera Mouth: no lip lesions, mucus membranes moist Cardiovascular: regular rate and rhythm with normal S1S2, no murmur, positive posterior tibial pulses bilaterally, and cap refill < 2 seconds. Lungs: Respirations even, regular, and unlabored on room air. Lungs CTA bilaterally, no rhonchi, no rales, no wheezing, and no accessory muscle usage. Abdominal: soft, nontender to palpation, no guarding, no appreciable organomegaly. PEG tube in place. Ext: ROM intact. No gross muscle atrophy, no edema, no contractures Neuro: Speech clear, face symmetrical and CN II-XII grossly intact with no noted focal neuro deficits Psych: Alert and oriented to person, place, time, and situation. Appropriate and pleasant affect. A total of 38 minutes of time were spent preparing this complex discharge summary. Pt was discharged on 04/24/2024 at 4 PM. Patient was seen independently by Nurse Practitioner. This document was prepared using [employer] dictation software. Please allow for errors in personal lines agent while rare they do occur. Piter Kidd NP rendered care for this patient independently, reviewed the findings and plan as documented in the note above. I did not physically speak with or examine the patient on this date. Patient Condition at Discharge: Stable Plan - Discharge Summary Discharge Rx Participant: Yes New Discharge Prescriptions: New Pantoprazole [Protonix] 40 mg PEG/G-TUBE DAILY 90 Days #90 tab Sucralfate [Carafate] 1 gm PEG/G-TUBE ACHS 90 Days #360 g Continue lisinopriL [Zestril] 2.5 mg PEG/G-TUBE DAILY Metoprolol Succinate (ER) [Toprol XL] 25 mg PEG/G-TUBE HS Amoxic-Pot Clav 875-125Mg [Augmentin 875-125] 1 tab PEG/G-TUBE DIRECTED Midodrine HCl [ProAmantine] 2.5 mg PEG/G-TUBE BID Atorvastatin [Lipitor] 40 mg PEG/G-TUBE DAILY@1500 Loratadine [Claritin] 10 mg PEG/G-TUBE DAILY@1500 Levothyroxine Sodium [Synthroid] 100 mcg PEG/G-TUBE DAILY Levothyroxine Sodium [Synthroid] 25 mcg PEG/G-TUBE GALLARDO Albuterol Inhaler [Ventolin Hfa Inhaler] 2 puff INHALATION RT-QID PRN PRN Reason: Shortness Of Breath Or Wheezing Discharge Medication List Atorvastatin [Lipitor] 40 mg PEG/G-TUBE DAILY@1500 08/31/23 [History] Metoprolol Succinate (ER) [Toprol XL] 25 mg PEG/G-TUBE HS 08/31/23 [History] Midodrine HCl [ProAmantine] 2.5 mg PEG/G-TUBE BID 08/31/23 [History] lisinopriL [Zestril] 2.5 mg PEG/G-TUBE DAILY 08/31/23 [History] Levothyroxine Sodium [Synthroid] 25 mcg PEG/G-TUBE GALLARDO 04/16/24 [History] Levothyroxine Sodium [Synthroid] 100 mcg PEG/G-TUBE DAILY 04/16/24 [History] Loratadine [Claritin] 10 mg PEG/G-TUBE DAILY@1500 04/16/24 [History] Albuterol Inhaler [Ventolin Hfa Inhaler] 2 puff INHALATION RT-QID PRN 04/21/24 [History] Amoxic-Pot Clav 875-125Mg [Augmentin 875-125] 1 tab PEG/G-TUBE DIRECTED 04/21/24 [History] Pantoprazole [Protonix] 40 mg PEG/G-TUBE DAILY 90 Days #90 tab 04/24/24 [Rx] Sucralfate [Carafate] 1 gm PEG/G-TUBE ACHS 90 Days #360 g 04/24/24 [Rx] Follow up Appointment(s)/Referral(s): Moise Flores MD [Medical Doctor] - 1 Week (The office is closed, please call and make follow up appointment.) [facility], [NON-STAFF] - 1 Week Junior Quiroz DO [Primary Care Provider] - 04/30/24 4:20 pm Edilia Richey DO [STAFF PHYSICIAN] - 4 Weeks (The office is closed, please call and make follow up appointment.) Patient Instructions/Handouts: Sucralfate (By mouth), Pantoprazole (By mouth), Peptic Ulcer (DC), Gastritis (DC), Gastrointestinal Bleeding (DC), Duodenitis (DC) Activity/Diet/Wound Care/Special Instructions: Activity: As tolerated. You are being discharged home with [facility] care with nursing and physical therapy. Diet: Resume tube feeds. Aspiration precautions with head of bed to be elevated to 45 degrees at all times Special Instructions: Take all of your medications as directed and remember to keep all of your doctor's appointments and follow-up as needed. As discussed with you by general surgeon, if you again have signs of bleeding from ulcer consisting of coffee-ground emesis or black stools you will need to be seen at a tertiary care facility, such as [facility] for angioembolization. Thank you for allowing us to participate in your care, it was truly a pleasure having you for our patient!!! . Discharge Disposition: HOME WITH HOME HEALTH SERVICES
[2024-04-27] MEDS ORDERED: LEVOTHYROXINE 25 MCG TAB PEG/G-TUBE SCH (16:00)
--- NOTE | 2024-04-29 11:29 | CDI ---
[id number] Clarification Form Date: 04/29/2024 11:03:28 AM From: Nicole Gilbert Phone: Admit Date: 04/22/2024 11:23:00 AM Patient Name: Liu Mendiola Visit Number: [id number] Discharge Date: 04/24/2024 06:26:00 PM ATTENTION: The Clinical Documentation Specialists (CDI) and [facility] Coding Staff appreciate your assistance in clarifying documentation. Please respond to the clarification below the line at the bottom and electronically sign. The CDI & [facility] Coding staff will review the response and follow-up if needed. Please note: Queries are made part of the Legal Health Record. If you have any questions, please contact the author of this message via ITS. Dr. Moise Flores The final diagnosis of the pathology report states Mild chronic gastritis. Coding guidelines do not allow coding professionals to code based on pathology results; therefore, clarification is requested. History/risk factors: 83yo M, GIB, bleeding from ulcer, ABLA, Duodenitiswithpeptic ulcer, hypothyroidism , gastritis, HTN, HLD, CAD, bicytopenia,thrombocytopenia, hypernatremia,Intrarenal AAAand fusiformdilationof the SUE, recent Hx Asp PNA, PEG tubedependentd/tdysphagia Clinical Indicators: revealedinflammatorychanges throughout the 1st & 2nd portion of the duodenum consistent withduodenitisand multiple superficialulcerationswith mildgastritisand a few smallerosionsin the stomach Treatment: underwentEGDwithbiopsy; [facility] a tertiary facility for angioembolization of theulcers. Please clarify if you agree with the pathology report diagnosis of Mild chronic gastritis: [ X] Yes [ ] No [ ] Other (please specify) [ ] Unable to determine (Template Last Revised: January 2021) MTDD
== END 2024-04-24 18:26 | disposition home health service (06) | DRG 378 ==
LOC: EC 20:37 → 4SSUR 23:33 → 5NMEDONC 04-21 11:00 → OBSVTOIN 04-22 11:23
PROVIDERS: ADMIT Internal Medicine; ATTEND Internal Medicine
PROC: 0DB78ZX Excision of Stomach, Pylorus, Via Natural or Artificial Opening Endoscopic, Diagnostic (ICD-10-PCS; 2024-04-24)
PROC: 0DB98ZX Excision of Duodenum, Via Natural or Artificial Opening Endoscopic, Diagnostic (ICD-10-PCS; principal; 2024-04-24 07:30)
DX: K29.51 Unspecified chronic gastritis with bleeding (principal); D62 Acute posthemorrhagic anemia; E87.0 Hyperosmolality and hypernatremia; E87.1 Hypo-osmolality and hyponatremia; K26.4 Chronic or unspecified duodenal ulcer with hemorrhage; D69.6 Thrombocytopenia, unspecified; I71.43 Infrarenal abdominal aortic aneurysm, without rupture; Z93.1 Gastrostomy status; E88.09 Other disorders of plasma-protein metabolism, not elsewhere classified; E87.8 Other disorders of electrolyte and fluid balance, not elsewhere classified; E03.9 Hypothyroidism, unspecified; I10 Essential (primary) hypertension; E78.5 Hyperlipidemia, unspecified; R13.10 Dysphagia, unspecified; E87.6 Hypokalemia; I25.10 Atherosclerotic heart disease of native coronary artery without angina pectoris; Z79.890 Hormone replacement therapy; Z79.899 Other long term (current) drug therapy; I25.2 Old myocardial infarction; Z95.5 Presence of coronary angioplasty implant and graft; Z87.891 Personal history of nicotine dependence
CPT/HCPCS: 36415; 43239; 74174; 74176; 80048; 80053; 82150; 83605; 83690; 83735; 84100; 84484; 85025; 85027; 88305; 96361; 96365; 96366; 96375; 99285

== ENCOUNTER 2024-05-17 13:17 | Emergency (ER) | payer MEDICARE ==
[2024-05-17 13:26] VITALS: BP 108/58; PULSE 78; RESP 20; TEMP 97.8
--- NOTE | 2024-05-17 13:49 | ED ---
General Adult HPI - General Chief complaint: Recheck/Abnormal Lab/Rx Stated complaint: Pic tube issue Time Seen by Provider: 05/17/24 13:40 Source: patient, RN notes reviewed Mode of arrival: ambulatory Limitations: no limitations - History of Present Illness Initial comments: 83-year-old male presents emergency department with chief complaint of PEG tube issues. Patient states his PEG tube is not flowing. He states that there is something stuck at the beginning of the tube. Patient offers no other associated symptoms. - Related Data Home Medications Medication Instructions Recorded Confirmed Atorvastatin [Lipitor] 40 mg PEG/G-TUBE DAILY@1500 08/31/23 04/21/24 Metoprolol Succinate (ER) [Toprol 25 mg PEG/G-TUBE HS 08/31/23 04/21/24 XL] Midodrine HCl [ProAmantine] 2.5 mg PEG/G-TUBE BID 08/31/23 04/21/24 lisinopriL [Zestril] 2.5 mg PEG/G-TUBE DAILY 08/31/23 04/21/24 Levothyroxine Sodium [Synthroid] 25 mcg PEG/G-TUBE GALLARDO 04/16/24 04/21/24 Levothyroxine Sodium [Synthroid] 100 mcg PEG/G-TUBE DAILY 04/16/24 04/21/24 Loratadine [Claritin] 10 mg PEG/G-TUBE DAILY@1500 04/16/24 04/21/24 Albuterol Inhaler [Ventolin Hfa 2 puff INHALATION RT-QID PRN 04/21/24 04/21/24 Inhaler] Amoxic-Pot Clav 875-125Mg 1 tab PEG/G-TUBE DIRECTED 04/21/24 04/21/24 [Augmentin 875-125] Previous Rx's Medication Instructions Recorded Pantoprazole [Protonix] 40 mg PEG/G-TUBE DAILY 90 Days #90 04/24/24 tab Sucralfate [Carafate] 1 gm PEG/G-TUBE ACHS 90 Days #360 g 04/24/24 Allergies Allergy/AdvReac Type Severity Reaction Status Date / Time No Known Allergies Allergy Verified 05/17/24 13:25 Review of Systems ROS Statement: Those systems with pertinent positive or pertinent negative responses have been documented in the HPI. ROS Other: All systems not noted in ROS Statement are negative. Past Medical History Past Medical History: Hyperlipidemia, Hypertension, Myocardial Infarction ([place]), Thyroid Disorder Additional Past Medical History / Comment(s): surgery on throat learning to speak through speech therapy. Put vein from leg in to throat. 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 Absent: respiratory distress, wheezes, rales, rhonchi, stridor Cardiovascular Exam: Present: regular rate, normal rhythm, normal heart sounds. Absent: systolic murmur, diastolic murmur, rubs, gallop, clicks GI/Abdominal exam: Present: soft, normal bowel sounds, other (PEG tube noted). Absent: distended, tenderness, guarding, rebound, rigid Course Vital Signs 05/17/24 13:24 Temperature 97.8 F Pulse Rate 78 Respiratory 20 Rate Blood Pressure 108/58 O2 Sat by Pulse 99 Oximetry Procedures - Procedures Initial comment: PEG tube was flushed with Pepsi, blockage was dislodged with no complications this was then flushed with water. Medical Decision Making - Medical Decision Making Was pt. sent in by a medical professional or institution (, PA, [employer], urgent care, hospital, or usp...) When possible be specific @ -No Did you speak to anyone other than the patient for history (EMS, parent, family, police, friend...)? What history was obtained from this source @ -No Did you review nursing and triage notes (agree or disagree)? Why? @ -I reviewed and agree with nursing and triage notes Were old charts reviewed (outside hosp., previous admission, EMS record, old EKG, old radiological studies, urgent care reports/EKG's, usp records)? Report findings @ -No old charts were reviewed Differential Diagnosis (chest pain, altered mental status, abdominal pain women, abdominal pain men, vaginal bleeding, weakness, fever, dyspnea, syncope, headache, dizziness, GI bleed, back pain, seizure, CVA, palpatations, mental health, musculoskeletal)? @ -PEG tube complication, obstruction EKG interpreted by me (3pts min.). @ -None X-rays interpreted by me (1pt min.). @ -None done CT interpreted by me (1pt min.). @ -None done U/S interpreted by me (1pt. min.). @ -None done What testing was considered but not performed or refused? (CT, X-rays, U/S, labs)? Why? @ -None What meds were considered but not given or refused? Why? @ -None Did you discuss the management of the patient with other professionals (professionals i.e. , PA, [employer], lab, RT, psych nurse, nursing home social worker, admiralty lawyer, teacher, mortgage loan officer originator, patient case manager)? Give summary @ -No Was smoking cessation discussed for >3mins.? @ -No Was critical care preformed (if so, how long)? @ -No Were there social determinants of health that impacted care today? How? (Homelessness, low income, unemployed, alcoholism, drug addiction, transportation, low edu. Level, literacy, decrease access to med. care, [facility], rehab)? @ -No Was there de-escalation of care discussed even if they declined (Discuss DNR or withdrawal of care, Hospice)? DNR status @ -No What co-morbidities impacted this encounter? (DM, HTN, Smoking, COPD, CAD, Cancer, CVA, ARF, Chemo, Hep., AIDS, mental health diagnosis, sleep apnea, morbid obesity)? @ -None Was patient admitted / discharged? Hospital course, mention meds given and route, prescriptions, significant lab abnormalities, going to OR and other pertinent info. @ -Discharge patient tube was flushed with Pepsi, water patient tolerated well discharged in stable condition. Undiagnosed new problem with uncertain prognosis? @ -No Drug Therapy requiring intensive monitoring for toxicity (Heparin, Nitro, Insulin, Cardizem)? @ -No Were any procedures done? @ -No Diagnosis/symptom? @ -PEG complication Acute, or Chronic, or Acute on Chronic? @ -Acute Uncomplicated (without systemic symptoms) or Complicated (systemic symptoms)? @ -Uncomplicated Side effects of treatment? @ -No Exacerbation, Progression, or Severe Exacerbation? @ -No Poses a threat to life or bodily function? How? (Chest pain, [place], [place], pneumonia, PE, COPD, DKA, ARF, appy, cholecystitis, CVA, Diverticulitis, Homicidal, Suicidal, threat to staff... and all critical care pts) @ -No Disposition Clinical Impression: PEG tube malfunction Disposition: HOME SELF-CARE Condition: Stable Additional Instructions: Please return to the Emergency Department if symptoms worsen or any other concerns. Is patient prescribed a controlled substance at d/c from ED?: No Referrals: Junior Quiroz DO [Primary Care Provider] - 1-2 days Time of Disposition: 13:49
== END 2024-05-17 13:57 | disposition home or self-care (01) ==
LOC: EC 13:17
DX: K94.23 Gastrostomy malfunction (principal); Z87.891 Personal history of nicotine dependence
CPT/HCPCS: 99283

== ENCOUNTER → 2024-07-22 | Outpatient (CLI) | payer MEDICARE ==
--- NOTE | 2024-07-22 18:44 | XR ---
EXAMINATION TYPE: XR chest 2V DATE OF EXAM: 07/22/2024 COMPARISON: 04/17/2024 INDICATION: Short of breath TECHNIQUE: Frontal and lateral views of the chest are obtained. FINDINGS: The heart size is normal. The pulmonary vasculature is normal. The lungs are clear. Pacemaker overlies the left chest. IMPRESSION: 1. No acute pulmonary process. [facility], , 07/22/2024 6:42 PM
== END | disposition home or self-care (01) ==
LOC: RADXRMAIN 18:11
PROVIDERS: ATTEND Family Medicine
DX: R06.02 Shortness of breath (principal)
CPT/HCPCS: 71046

== ENCOUNTER 2024-07-30 11:49 | Emergency (ER) | payer MEDICARE ==
--- NOTE | 2024-07-30 12:20 | ED ---
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 States he was walking down the stairs, and fell approximately 3 steps, landing on his buttocks. Denies hitting head. States he has been dizzy and nauseous the past couple of days which he believes attributed to his fall. He also states his blood pressure has been low the past few days. He was recently treated for a PEG tube infection and URI at PCP. He has been taking antibiotics. He has been able to ambulate after the fall. States he initially had hip and back pain after the fall, however reports symptoms have resolved. (Iva Glasgow) This is an 83-year-old to the ER for evaluation of a fall. Fall down a few steps and has been weak and dizzy lately, recently placed on antibiotics secondary to upper respiratory infection and complaining of back pain mild but generalized weakness and he does complain of dry mouth although he does not take anything orally, failure at bedside states he gets short of breath with any significant activity at all (Tyrel Allen) - Related Data Home Medications Medication Instructions Recorded Confirmed Atorvastatin [Lipitor] 40 mg PEG/G-TUBE DAILY@1500 08/31/23 07/30/24 Metoprolol Succinate (ER) [Toprol 25 mg PEG/G-TUBE HS 08/31/23 07/30/24 XL] lisinopriL [Zestril] 2.5 mg PEG/G-TUBE DAILY 08/31/23 07/30/24 Levothyroxine Sodium [Synthroid] 25 mcg PEG/G-TUBE GALLARDO 04/16/24 07/30/24 Levothyroxine Sodium [Synthroid] 100 mcg PEG/G-TUBE DAILY 04/16/24 07/30/24 Loratadine [Claritin] 10 mg PEG/G-TUBE DAILY@1500 04/16/24 07/30/24 Menthol-Zinc Oxide Oint 1 applic TOPICAL TID PRN 07/30/24 07/30/24 [Calmoseptine Ointment] Midodrine [ProAmatine] 10 mg PEG/G-TUBE TID 07/30/24 07/30/24 Nystatin [Nystatin Oral Susp] 500,000 unit PO TID 07/30/24 07/30/24 Omeprazole/Sodium Bicarbonate 20 ml PEG/G-TUBE DAILY 07/30/24 07/30/24 [Konvomep 2-84 mg/ml Oral Susp] Promethazine 6.25MG/5Ml [Phenergan 12.5 mg PEG/G-TUBE Q6H PRN 07/30/24 07/30/24 Syrup] Sertraline [Zoloft] 25 mg PEG/G-TUBE DAILY 07/30/24 07/30/24 Previous Rx's Medication Instructions Recorded Sucralfate [Carafate] 1 gm PEG/G-TUBE ACHS 90 Days #360 g 04/24/24 Allergies Allergy/AdvReac Type Severity Reaction Status Date / Time No Known Allergies Allergy Verified 07/30/24 14:24 Review of Systems ROS Other: All systems not noted in ROS Statement are negative. <Iva Glasgow - Last Filed: 07/30/24 12:16> ROS Other: All systems not noted in ROS Statement are negative. <Tyrel Allen - Last Filed: 08/07/24 19:09> ROS Statement: Those systems with pertinent positive or pertinent negative responses have been documented in the HPI. Past Medical History Past Medical History: Hyperlipidemia, Hypertension, Myocardial Infarction (CT), Thyroid Disorder Additional Past Medical History / Comment(s): surgery on throat learning to speak through speech therapy. Put vein from leg in to throat. 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 Absent: scleral icterus, conjunctival injection, periorbital swelling ENT exam: Present: normal exam, mucous membranes moist Neck exam: Present: normal inspection. Absent: tenderness, meningismus, lymphadenopathy Respiratory exam: Present: normal lung sounds bilaterally. Absent: respiratory distress, wheezes, rales, rhonchi, stridor Cardiovascular Exam: Present: regular rate, normal rhythm, normal heart sounds. Absent: systolic murmur, diastolic murmur, rubs, gallop, clicks GI/Abdominal exam: Present: soft, normal bowel sounds. Absent: distended, tenderness, guarding, rebound, rigid Extremities exam: Present: normal inspection, full ROM, normal capillary refill. Absent: tenderness, pedal edema, joint swelling, calf tenderness Back exam: Present: normal inspection Neurological exam: Present: alert, oriented X3, CN II-XII intact Psychiatric exam: Present: normal affect, normal mood Skin exam: Present: warm, dry, intact, normal color. Absent: rash <Tyrel Allen - Last Filed: 08/07/24 19:09> - General Exam Comments Initial Comments: Visual Physical Exam Vital signs reviewed General: Well-appearing, nontoxic, no acute distress. Head: Normocephalic, atraumatic Eyes: PERRLA, EOMI ENT: Airway patent Chest: Nonlabored breathing Skin: No visual rash, normal skin tone Neuro: Alert and oriented 3 Musculoskeletal: No gross abnormalities (Iva Glasgow) Course <Tyrel Allen - Last Filed: 08/07/24 19:09> Vital Signs 07/30/24 07/30/24 07/30/24 11:54 13:56 14:50 Temperature 97.6 F 98.5 F Pulse Rate 95 92 80 Respiratory 20 16 18 Rate Blood Pressure 92/63 123/84 O2 Sat by Pulse 98 95 98 Oximetry - Reevaluation(s) Reevaluation #1: 07/30/24 13:20 Medical record was reviewed (Tyrel Allen) Reevaluation #2: Patient symptoms improved (Tyrel Allen) Reevaluation #3: Patient informed of results and questions answered (yTrel Allen) Reevaluation #4: Was pt. sent in by a medical professional or institution (, PA, FISHING LURE ASSEMBLER, urgent care, hospital, or [facility]...) When possible be specific @ -no Did you speak to anyone other than the patient for history (EMS, parent, family, police, friend...)? What history was obtained from this source @ -no Did you review nursing and triage notes (agree or disagree)? Why? @ -agree Are old charts reviewed (outside hosp., previous admission, EMS record, old EKG, old radiological studies, urgent care reports/EKG's, [facility] records)? Report findings @ -yes Differential Diagnosis (chest pain, altered mental status, abdominal pain women, abdominal pain men, vaginal bleeding, weakness, fever, dyspnea, syncope, headache, dizziness, GI bleed, back pain, seizure, CVA, palpatations, mental health, musculoskeletal)? @ -prior EKG interpreted by me (3pts min.). @ -yes X-rays interpreted by me (1pt min.). @ -yes negative for acute disease CT interpreted by me (1pt min.). @ -no U/S interpreted by me (1pt. min.). @ -no What testing was considered but not performed or refused? (CT, X-rays, U/S, labs)? Why? @ -none What meds were considered but not given or refused? Why? @ -none Did you discuss the management of the patient with other professionals (professionals i.e. , PA, FISHING LURE ASSEMBLER, lab, RT, psych nurse, social media community manager, marina manager, teacher, emergency communications officer, medical case manager)? Give summary @ -no Was smoking cessation discussed for >3mins.? @ -no Was critical care preformed (if so, how long)? @ -no Were there social determinants of health that impacted care today? How? (Homelessness, low income, unemployed, alcoholism, drug addiction, transpo rtation, low edu. Level, literacy, decrease access to med. care, skilled nursing, rehab)? @ -none Was there de-escalation of care discussed even if they declined (Discuss DNR or withdrawal of care, Hospice)? DNR status @ -no What co-morbidities impacted this encounter? (DM, HTN, Smoking, COPD, CAD, Cancer, CVA, ARF, Chemo, Hep., AIDS, mental health diagnosis, sleep apnea, morbid obesity)? @ -none Was patient admitted / discharged? Hospital course, mention meds given and route, prescriptions, significant lab abnormalities, going to OR and other pertinent info. @ - 83 male to ER for evaluation low blood pressure falls and weakness. Feeling better after hydration here in the ER and can be discharged home Discharge Undiagnosed new problem with uncertain prognosis? @ -no Drug Therapy requiring intensive monitoring for toxicity (Heparin, Nitro, Insulin, Cardizem)? @ -no Were any procedures done? @ -no Diagnosis/symptom? @ -Weakness low blood pressure Acute, or Chronic, or Acute on Chronic? @ -Acute Uncomplicated (without systemic symptoms) or Complicated (systemic symptoms)? @ -Complicated Side effects of treatment? @ -no Exacerbation, Progression, or Severe Exacerbation? @ -exacerbation Poses a threat to life or bodily function? How? (Chest pain, USA, CT, pneumonia, PE, COPD, DKA, ARF, appy, cholecystitis, CVA, Diverticulitis, Homicidal, Suicidal, threat to staff... and all critical care pts) @ -yes extremes of age (Tyrel Allen) Reevaluation #5: Differential Weakness: Hypoglycemia, shock, sepsis, hyponatremia, anemia, infection, CT, ETOH, adverse medicine reaction, overdose, stroke, this is not meant to be an all-inclusive li st. Differential Dyspnea: Coronary syndrome, arrhythmia, tamponade, asthma, COPD, pulmonary embolism, pneumonia, pneumothorax, pulmonary effusion, anaphylaxis, diabetic ketoacidosis, flailed chest, pulmonary contusion, diaphragmatic rupture, anemia, neuromuscular, this is not meant to be an all-inclusive list. (Tyrel Allen) Medical Decision Making <Iva Glasgow - Last Filed: 07/30/24 12:16> - Lab Data Result diagrams: 07/30/24 12:35 07/30/24 12:35 - EKG Data -: EKG Interpreted by Me (EKG is sinus 95 PA 142 QRS 124 QTc 436) - Radiology Data Radiology results: report reviewed (X-ray chest and pelvis negative for acute disease), image reviewed <Tyrel Allen - Last Filed: 08/07/24 19:09> - Medical Decision Making I completed the quick note portion of this chart signed Iva Glasgow PA-C (Iva Glasgow) 83 male to ER for evaluation low blood pressure falls and weakness. Feeling better after hydration here in the ER and can be discharged home (Tyrel Allen) - Lab Data Lab Results 07/30/24 07/30/24 07/30/24 Range/Units 12:35 12:35 12:35 WBC 7.4 (3.8-10.6) k/uL RBC 4.83 (4.30-5.90) m/uL Hgb 15.3 (13.0-17.5) gm/dL Hct 47.5 (39.0-53.0) % MCV 98.3 (80.0-100.0) fL MCH 31.7 (25.0-35.0) pg MCHC 32.2 (31.0-37.0) g/dL RDW 16.2 H (11.5-15.5) % Plt Count 101 L (150-450) k/uL MPV 10.8 Neutrophils % 79 % Lymphocytes % 14 % Monocytes % 6 % Eosinophils % 0 % Basophils % 0 % Neutrophils # 5.8 (1.3-7.7) k/uL Lymphocytes # 1.0 (1.0-4.8) k/uL Monocytes # 0.4 (0-1.0) k/uL Eosinophils # 0.0 (0-0.7) k/uL Basophils # 0.0 (0-0.2) k/uL Anisocytosis Slight Macrocytosis Slight PT 11.2 (10.0-12.5) sec INR 1.0 (<1.2) APTT 23.6 (22.0-30.0) sec VBG pH (7.31-7.41) VBG pCO2 (37-51) mmHg VBG HCO3 (24-28) mmol/L Sodium 153 H (137-145) mmol/L Potassium 4.0 (3.5-5.1) mmol/L Chloride 119 H (98-107) mmol/L Carbon Dioxide 23 (22-30) mmol/L Anion Gap 11 mmol/L BUN 37 H (9-20) mg/dL Creatinine 1.00 (0.66-1.25) mg/dL Est GFR (CKD-EPI)AfAm 81 (>60 ml/min/1.73 sqM) Est GFR (CKD-EPI)NonAf 70 (>60 ml/min/1.73 sqM) Glucose 139 H (74-99) mg/dL Plasma Lactic Acid Raimundo (0.7-2.0) mmol/L Calcium 10.4 H (8.4-10.2) mg/dL Phosphorus (2.5-4.5) mg/dL Magnesium (1.6-2.3) mg/dL Total Bilirubin 0.8 (0.2-1.3) mg/dL AST 33 (17-59) U/L ALT 19 (4-49) U/L Alkaline Phosphatase 84 (38-126) U/L Troponin I (0.000-0.034) ng/mL Total Protein 7.2 (6.3-8.2) g/dL Albumin 4.3 (3.5-5.0) g/dL 07/30/24 07/30/24 07/30/24 Range/Units 12:35 13:34 13:34 WBC (3.8-10.6) k/uL RBC (4.30-5.90) m/uL Hgb (13.0-17.5) gm/dL Hct (39.0-53.0) % MCV (80.0-100.0) fL MCH (25.0-35.0) pg MCHC (31.0-37.0) g/dL RDW (11.5-15.5) % Plt Count (150-450) k/uL MPV Neutrophils % % Lymphocytes % % Monocytes % % Eosinophils % % Basophils % % Neutrophils # (1.3-7.7) k/uL Lymphocytes # (1.0-4.8) k/uL Monocytes # (0-1.0) k/uL Eosinophils # (0-0.7) k/uL Basophils # (0-0.2) k/uL Anisocytosis Macrocytosis PT (10.0-12.5) sec INR (<1.2) APTT (22.0-30.0) sec VBG pH 7.48 H (7.31-7.41) VBG pCO2 35 L (37-51) mmHg VBG HCO3 26 (24-28) mmol/L Sodium (137-145) mmol/L Potassium (3.5-5.1) mmol/L Chloride (98-107) mmol/L Carbon Dioxide (22-30) mmol/L Anion Gap mmol/L BUN (9-20) mg/dL Creatinine (0.66-1.25) mg/dL Est GFR (CKD-EPI)AfAm (>60 ml/min/1.73 sqM) Est GFR (CKD-EPI)NonAf (>60 ml/min/1.73 sqM) Glucose (74-99) mg/dL Plasma Lactic Acid Raimundo 1.6 (0.7-2.0) mmol/L Calcium (8.4-10.2) mg/dL Phosphorus (2.5-4.5) mg/dL Magnesium (1.6-2.3) mg/dL Total Bilirubin (0.2-1.3) mg/dL AST (17-59) U/L ALT (4-49) U/L Alkaline Phosphatase (38-126) U/L Troponin I 0.034 (0.000-0.034) ng/mL Total Protein (6.3-8.2) g/dL Albumin (3.5-5.0) g/dL 07/30/24 Range/Units 13:34 WBC (3.8-10.6) k/uL RBC (4.30-5.90) m/uL Hgb (13.0-17.5) gm/dL Hct (39.0-53.0) % MCV (80.0-100.0) fL MCH (25.0-35.0) pg MCHC (31.0-37.0) g/dL RDW (11.5-15.5) % Plt Count (150-450) k/uL MPV Neutrophils % % Lymphocytes % % Monocytes % % Eosinophils % % Basophils % % Neutrophils # (1.3-7.7) k/uL Lymphocytes # (1.0-4.8) k/uL Monocytes # (0-1.0) k/uL Eosinophils # (0-0.7) k/uL Basophils # (0-0.2) k/uL Anisocytosis Macrocytosis PT (10.0-12.5) sec INR (<1.2) APTT (22.0-30.0) sec VBG pH (7.31-7.41) VBG pCO2 (37-51) mmHg VBG HCO3 (24-28) mmol/L Sodium (137-145) mmol/L Potassium (3.5-5.1) mmol/L Chloride (98-107) mmol/L Carbon Dioxide (22-30) mmol/L Anion Gap mmol/L BUN (9-20) mg/dL Creatinine (0.66-1.25) mg/dL Est GFR (CKD-EPI)AfAm (>60 ml/min/1.73 sqM) Est GFR (CKD-EPI)NonAf (>60 ml/min/1.73 sqM) Glucose (74-99) mg/dL Plasma Lactic Acid Raimundo (0.7-2.0) mmol/L Calcium (8.4-10.2) mg/dL Phosphorus 3.4 (2.5-4.5) mg/dL Magnesium 2.7 H (1.6-2.3) mg/dL Total Bilirubin (0.2-1.3) mg/dL AST (17-59) U/L ALT (4-49) U/L Alkaline Phosphatase (38-126) U/L Troponin I (0.000-0.034) ng/mL Total Protein (6.3-8.2) g/dL Albumin (3.5-5.0) g/dL Disposition <Iva Glasgow - Last Filed: 07/30/24 12:16> Is patient prescribed a controlled substance at d/c from ED?: No Time of Disposition: 14:00 <Tyrel Allen - Last Filed: 08/07/24 19:09> Clinical Impression: Fall, Weakness, Dehydration Disposition: HOME SELF-CARE Instructions (If sedation given, give patient instructions): Dehydration (ED), Fall Prevention for Older Adults (ED) Referrals: Junior Quiroz DO [Primary Care Provider] - 1-2 days
[2024-07-30 13:03] LABS: Anisocytosis Slight; Basophils % (A) 0 %; Eosinophils % (A) 0 %; HCT 47.5 % (39.0-53.0); HGB 15.3 gm/dL (13.0-17.5); Lymphocytes % (A) 14 %; MCH 31.7 pg (25.0-35.0); MCHC 32.2 g/dL (31.0-37.0); MCV 98.3 fL (80.0-100.0); Macrocytosis Slight; Mean Platelet Volume 10.8; Monocytes # (A) 0.4 k/uL (0-1.0); Monocytes % (A) 6 %; Neutrophils # (A) 5.8 k/uL (1.3-7.7); Neutrophils % (A) 79 %; Platelet Count 101 k/uL (150-450); RBC 4.83 m/uL (4.30-5.90); RDW 16.2 % (11.5-15.5); WBC 7.4 k/uL (3.8-10.6)
[2024-07-30 13:08] LABS: Partial Thromboplastin Time 23.6 sec (22.0-30.0); Prothrombin Time 11.2 sec (10.0-12.5)
[2024-07-30 13:13] LABS: ALT 19 U/L (4-49); AST 33 U/L (17-59); African American GFR (CKD) 81 (>60 ml/min/1.73 sqM); Albumin 4.3 g/dL (3.5-5.0); Alkaline Phosphatase 84 U/L (38-126); Anion Gap 11 mmol/L; Blood Urea Nitrogen 37 mg/dL (9-20); Calcium 10.4 mg/dL (8.4-10.2); Carbon Dioxide 23 mmol/L (22-30); Chloride 119 mmol/L (98-107); Glucose 139 mg/dL (74-99); Non-African American GFR(CKD) 70 (>60 ml/min/1.73 sqM); Sodium 153 mmol/L (137-145); Total Bilirubin 0.8 mg/dL (0.2-1.3); Total Protein 7.2 g/dL (6.3-8.2)
[2024-07-30 13:50] LABS: VBG PH 7.48 (7.31-7.41)
--- NOTE | 2024-07-30 13:50 | XR ---
EXAMINATION TYPE: XR chest 2V DATE OF EXAM: 07/30/2024 1:32 PM COMPARISON: Chest radiographs from 07/22/2024 TECHNIQUE: XR chest 2V Frontal and lateral views of the chest. CLINICAL INDICATION:Male, 83 years old with history of fall; FINDINGS: Lungs/Pleura: There is no evidence of pleural effusion, focal consolidation, or pneumothorax. Pulmonary vascularity: Unremarkable. Heart/mediastinum: Cardiomediastinal silhouette is stable. Atherosclerotic calcifications are seen i n the aorta. Two lead cardiac conduction device overlying the left hemithorax with lead tips projecti ng over the right ventricle and right atrium. Musculoskeletal: No acute osseous pathology. Other findings: None IMPRESSION: No acute cardiopulmonary disease/process. [facility], , 07/30/2024 1:48 PM
--- NOTE | 2024-07-30 13:52 | XR ---
EXAMINATION TYPE: XR pelvis AP view DATE OF EXAM: 07/30/2024 1:32 PM INDICATION: Patient age:Male; 83 years old; Reason for study: fall; PHH. COMPARISON: CTA abdomen and pelvis 04/23/2024 TECHNIQUE: The pelvis was examined in a single projection. FINDINGS: There is no evidence of fracture or dislocation. There is no soft tissue abnormality. Surgi zander clip in the left inguinal region. No abnormal calcifications are present. Multilevel degenerativ e changes of the lower spine. IMPRESSION: No acute osseous pathology. [facility], , 07/30/2024 1:49 PM
[2024-07-30] MEDS: SODIUM CHLORIDE 0.9% 1,000 ML IV STA ×2 (13:55→14:50)
[2024-07-30 13:57] VITALS: BP 123/84
[2024-07-30 14:12] LABS: Magnesium 2.7 mg/dL (1.6-2.3); Phosphorus 3.4 mg/dL (2.5-4.5)
[2024-07-30 14:50] VITALS: PULSE 80; RESP 18; TEMP 98.5
== END 2024-07-30 15:11 | disposition home or self-care (01) ==
LOC: EC 11:49
CPT/HCPCS: 36415; 71046; 72170; 80053; 82803; 83605; 83735; 84100; 84484; 85025; 85610; 85730; 93005; 96360; 99284

== ENCOUNTER → 2024-09-23 | Outpatient (CLI) | payer MEDICARE ==
[2024-09-23 09:51] LABS: Ionized Calcium 5.2 mg/dL (4.5-5.3)
[2024-09-23 16:00] LABS: % Iron Saturation 30.49 (15.00-50.00); ALT 20 U/L (10-49); AST 27 U/L (14-35); Albumin 4.2 g/dL (3.8-4.9); Albumin/Globulin Ratio 1.56 Ratio (1.60-3.17); Alkaline Phosphatase 96 U/L (41-126); Blood Urea Nitrogen 25.4 mg/dL (9.0-27.0); Calcium 9.8 mg/dL (8.7-10.3); Carbon Dioxide 22.6 mmol/L (21.6-31.8); Chloride 108 mmol/L (96-109); Chol/HDL Ratio 4.52 Ratio; Globulin 2.7 g/dL (1.6-3.3); Glucose 107 mg/dL (70-110); Iron 125 UG/DL (65-175); LDL Cholesterol,Calculated 77.6 mg/dL (0.0-131.0); Magnesium 2.2 mg/dL (1.5-2.4); Potassium 4.3 mmol/L (3.5-5.5); Sodium 143 mmol/L (135-145); Total Bilirubin 0.9 mg/dL (0.3-1.2); Total Iron Binding Capacity 410 UG/DL (228-460); Total Protein 6.9 g/dL (6.2-8.2)
[2024-09-23 16:01] LABS: Ferritin 83.4 ng/mL (22.0-322.0); T4, Free (Free Thyroxine) 1.49 ng/dL (0.80-1.80)
[2024-09-23 16:33] LABS: Basophils # (A) 0.05 X 10*3/uL (0.00-0.10); Basophils % (A) 0.9 %; Eosinophils # (A) 0.11 X 10*3/uL (0.04-0.35); HCT 42.8 % (39.6-50.0); Lymphocytes # (A) 1.11 X 10*3/uL (0.90-5.00); Lymphocytes % (A) 20.7 %; MCHC 32.7 g/dL (32.0-37.0); MCV 97.9 FL (80.0-97.0); Mean Platelet Volume 12.8 FL (9.5-12.2); Monocytes # (A) 0.58 X 10*3/uL (0.20-1.00); Monocytes % (A) 10.8 %; NRBC Per 100 WBC 0 X 10*3/uL (0.00-0.01); Neutrophils # (A) 3.51 X 10*3/uL (1.80-7.70); Neutrophils % (A) 65.4 %; Platelet Count 97 X 10*3/uL (140-440); RBC 4.37 X 10*6/uL (4.40-5.60); RDW 17.2 % (11.5-14.5); WBC 5.37 X 10*3/uL (4.50-10.00)
== END | disposition home or self-care (01) ==
LOC: LABWHC1 09:06
PROVIDERS: ATTEND Internal Medicine
DX: I10 Essential (primary) hypertension (principal); E03.9 Hypothyroidism, unspecified; R41.3 Other amnesia
CPT/HCPCS: 36415; 80053; 80061; 82140; 82330; 82607; 82728; 82746; 83540; 83550; 83735; 84439; 84443; 85025; 86780

== ENCOUNTER → 2024-09-25 | Outpatient (CLI) | payer MEDICARE ==
--- NOTE | 2024-09-25 13:36 | CT ---
EXAMINATION TYPE: CT brain w con CT DLP: 1116.0 mGycm, Automated exposure control for dose reduction was used. DATE OF EXAM: 09/25/2024 9:25 AM COMPARISON: None. CLINICAL INDICATION:Male, 83 years old with history of R41.3 MEMORY CHANGE; PHH, MEMORY CHANGE TECHNIQUE: Axial CT images of the brain were obtained after the uneventful administration of water an d mild Isovue-[address] intraven[address]. One or more CT dose reduction strategies were utilized during this e xamination. Coronal and sagittal reformats reviewed. FINDINGS: Extra-axial spaces: No abnormal extra-axial fluid collections. Ventricular system: Dilatation in proportion to cerebral atrophy. Cerebral parenchyma: Cerebral atrophy. No acute intraparenchymal hemorrhage or mass effect. The schmid -white junction is well differentiated. Scattered hypoattenuating areas are seen within the white mat ter. No enhancing mass is identified. Cerebellum: Unremarkable. Mass effect: No evidence of midline shift. Vasculature: Atherosclerotic calcifications of the intracranial vessels. Partial visualization of rig ht internal carotid artery stent. There is poor contrast enhancement of the petrous petrous and jerel nous portions of the right internal carotid artery. There is contrast enhancement of the right MCA. R emaining intracranial vasculature appears patent. Soft tissues: Normal. Calvarium/osseous structures: No depressed skull fracture. Paranasal sinuses and mastoid air cells: Clear. Visualized orbits: Right aphakia IMPRESSION: 1. No acute intracranial process or evidence for enhancing mass. 2. Nonspecific white matter changes, likely secondary to chronic small vessel ischemic disease. 3. Postsurgical changes of right internal carotid stent with poor opacification of the right internal carotid artery suspicious for possible occlusion. There is enhancement identified within the right M CA. Correlation with history for occlusion is recommended. Consider further evaluation with CTA head and neck is recommended. [facility], , 09/25/2024 1:33 PM
== END | disposition home or self-care (01) ==
LOC: RADCTMAIN 08:31
PROVIDERS: ATTEND Internal Medicine
DX: G93.89 Other specified disorders of brain (principal); R41.3 Other amnesia; R90.82 White matter disease, unspecified; Z98.890 Other specified postprocedural states
CPT/HCPCS: 70460; Q9967

== ENCOUNTER 2024-10-26 16:45 | Emergency (ER) | payer MEDICARE ==
--- NOTE | 2024-10-26 17:28 | ED ---
General Adult HPI - General Chief complaint: Shortness of Breath Stated complaint: congestion Time Seen by Provider: 10/26/24 17:02 Source: patient, family, RN notes reviewed, old records reviewed Mode of arrival: wheelchair Limitations: no limitations - History of Present Illness Initial comments: Patient is an 84-year-old male who is PEG tube dependent presents emergency department for cough, congestion. Has been ongoing for few days but worse today. Originally went to urgent care who sent him here for further evaluation. Patient does endorse occasionally sipping water and occasionally cough afterward. Family is concerned for possible aspiration pneumonia. Patient does have a remote history of daily tobacco use. He denies any chest pain, abdominal pain. Does endorse emesis when he is prolonged episodes of coughing. 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 Patient has been PEG tube dependent since that time. Also has a history of DE, hypertension, hyperlipidemia. Presents for further evaluation at this time. Denies any fevers. Does have multiple sick contacts at home with bronchitis. Is not on a daily inhaler but does have access to nebulizer machines at home. - Related Data Home Medications Medication Instructions Recorded Confirmed Atorvastatin [Lipitor] 40 mg PEG/G-TUBE HS 08/31/23 10/26/24 Metoprolol Succinate (ER) [Toprol 12.5 mg PEG/G-TUBE HS 08/31/23 10/26/24 XL] Levothyroxine Sodium [Synthroid] 100 mcg PEG/G-TUBE DAILY 04/16/24 10/26/24 Loratadine [Claritin] 10 mg PEG/G-TUBE DAILY@1200 04/16/24 10/26/24 Omeprazole/Sodium Bicarbonate 20 ml PEG/G-TUBE HS 07/30/24 10/26/24 [Konvomep 2-84 mg/ml Oral Susp] Sertraline [Zoloft] 25 mg PEG/G-TUBE DAILY 07/30/24 10/26/24 Midodrine HCl [ProAmantine] 2.5 mg PEG/G-TUBE TID 10/26/24 10/26/24 Previous Rx's Medication Instructions Recorded Albuterol Nebulized [Ventolin 2.5 mg INHALATION Q4H 8 Days #150 10/26/24 Nebulized] ml Azithromycin 250 mg PO DIRECTED 4 Days #25 ml 10/26/24 predniSONE [predniSONE 5 MG/5 ML 40 mg PEG/G-TUBE DAILY 5 Days #200 10/26/24 Oral Soln] ml Allergies Allergy/AdvReac Type Severity Reaction Status Date / Time No Known Allergies Allergy Verified 10/26/24 17:34 Review of Systems ROS Statement: Those systems with pertinent positive or pertinent negative responses have been documented in the HPI. Review of Systems: CONST: Denies fever EYES: Denies blurry vision ENT: Endorses nasal congestion C/V: Denies Chest pain RESP: Endorses cough GI: Denies abdominal pain : Denies dysuria SKIN: Denies rash. MSK: Denies joint pain. NEURO: Denies headache ROS Other: All systems not noted in ROS Statement are negative. Past Medical History Past Medical History: Hyperlipidemia, Hypertension, Myocardial Infarction (DE), Thyroid Disorder Additional Past Medical History / Comment(s): surgery on throat learning to speak through speech therapy. Put vein from leg in to throat. Patient is on feeding tube Last Myocardial Infarction Date:: 2021 History of Any Multi-Drug Resistant Organisms: None Reported Past Surgical History: Adenoidectomy, Heart Catheterization With Stent, Tonsillectomy Additional Past Surgical History / Comment(s): bone marrow bx prior. 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 HEAD: Normal with no signs of head trauma. EYES: EOMI ENT: Hearing grossly intact, normal oropharynx. RESPIRATORY: Coarse breath sounds with wheezing bilaterally. Mild hypoxia ranging from 93 to 94%. No significant increased work of breathing. C/V: Regular rate and rhythm. S1 and S2 auscultated, no edema, peripheral pulses 2+ and intact throughout ABD: Abd is soft, nontender, nondistended. PEG tube in place. EXT: no obvious deformity SKIN: No rashes or lesions observed on exposed skin. NEURO: Alert and oriented x 4. Limitations: no limitations Course Vital Signs 10/26/24 10/26/24 10/26/24 16:50 18:27 18:36 Temperature 99.7 F H Pulse Rate 107 H 85 86 Respiratory 24 Rate Blood Pressure 94/59 O2 Sat by Pulse 94 L Oximetry 10/26/24 10/26/24 18:51 19:36 Temperature 98.0 F 98.0 F Pulse Rate 86 Respiratory 18 Rate Blood Pressure 115/60 O2 Sat by Pulse 96 Oximetry Medical Decision Making - Medical Decision Making Was pt. sent in by a medical professional or institution (, PA, OPTICAL MANAGER, urgent care, hospital, or penitentiary...) When possible be specific @ -No Did you speak to anyone other than the patient for history (EMS, parent, family, police, friend...)? What history was obtained from this source @ -Patient's granddaughter is the primary historian for the patient and is one of the primary caregivers at home for the patient. Did you review nursing and triage notes (agree or disagree)? Why? @ -I reviewed and agree with nursing and triage notes Were old charts reviewed (outside hosp., previous admission, EMS record, old EKG, old radiological studies, urgent care reports/EKG's, penitentiary records)? Report findings @ -Reviewed prior EKG from July 2024 with no obvious acute changes when compared with today's EKG. Differential Diagnosis (chest pain, altered mental status, abdominal pain women, abdominal pain men, vaginal bleeding, weakness, fever, dyspnea, syncope, headache, dizziness, GI bleed, back pain, seizure, CVA, palpatations, mental health, musculoskeletal)? @ -COVID, flu, RSV, pneumonia. This list is not all inclusive. EKG interpreted by me (3pts min.). @ -As above X-rays interpreted by me (1pt min.). @ -Chest x-ray reveals no obvious acute cardiopulmonary process. CT interpreted by me (1pt min.). @ -None done U/S interpreted by me (1pt. min.). @ -None done What testing was considered but not performed or refused? (CT, X-rays, U/S, labs)? Why? @ -None What meds were considered but not given or refused? Why? @ -None Did you discuss the management of the patient with other professionals (professionals i.e. , GINI, OPTICAL MANAGER, lab, RT, psych nurse, social science instructor, vice president network, teacher, chief nursing officer, bilingual case manager)? Give summary @ -No Was smoking cessation discussed for >3mins.? @ -No Was critical care preformed (if so, how long)? @ -No Were there social determinants of health that impacted care today? How? (Homelessness, low income, unemployed, alcoholism, drug addiction, transporta tion, low edu. Level, literacy, decrease access to med. care, [facility], rehab)? @ -No Was there de-escalation of care discussed even if they declined (Discuss DNR or withdrawal of care, Hospice)? DNR status @ -No What co-morbidities impacted this encounter? (DM, HTN, Smoking, COPD, CAD, Cancer, CVA, ARF, Chemo, Hep., AIDS, mental health diagnosis, sleep apnea, morbid obesity)? @ -PEG tube dependent, prior smoker Was patient admitted / discharged? Hospital course, mention meds given and route, prescriptions, significant lab abnormalities, going to OR and other pertinent info. @ -Patient presents with URI symptoms. I do suspect a degree of possible undiagnosed COPD. Vitals currently remarkable for mild hypoxia. Is not usually on oxygen. Patient be given a breathing treatment we will obtain infectious workup. Patient and patient's family in agreement this plan. He will also receive a 1 L fluid bolus as well as Motrin and Zofran. EKG shows no signs of acute ischemia. Chest x-ray unremarkable. Laboratory studies remarkable for mild dehydration with a lactic acid of 2.3. Remainder the workup unremarkable. On reevaluation, I updated the patient. Diagnosis COPD as well as trach eobronchitis. He is feeling proved following breathing treatment and lung sounds are improved. Hypoxia has resolved. Patient will be discharged home with albuterol breathing treatments as he does have access to a nebulizer machine at home as well as liquid prednisone and liquid azithromycin. Given a dose prior to discharge. He was in agreement this plan. Patient also given a dose of Rocephin prior to discharge for tracheobronchitis. I will provide the patient with a prescription for prednisone, azithromycin, albuterol. I instructed the patient to follow up with their PCP in the next 1-3 days.. I explained that the patient should return to the emergency department if they experience any worsening symptoms. Strict return precautions were discussed with the patient. The patient expressed understanding of these instructions. I answered all questions that the patient had. The patient was discharged home in good condition with their prescriptions and follow up information. Undiagnosed new problem with uncertain prognosis? @ -No Drug Therapy requiring intensive monitoring for toxicity (Heparin, Nitro, Insulin, Cardizem)? @ -No Were any procedures done? @ -No Diagnosis/symptom? @ -COPD, tracheobronchitis Acute, or Chronic, or Acute on Chronic? @ -Acute Uncomplicated (without systemic symptoms) or Complicated (systemic symptoms)? @ -Complicated Side effects of treatment? @ -No Exacerbation, Progression, or Severe Exacerbation? @ -No Poses a threat to life or bodily function? How? (Chest pain, [place], DE, pneumonia, PE, COPD, DKA, ARF, appy, cholecystitis, CVA, Diverticulitis, Homicidal, Suicidal, threat to staff... and all critical care pts) @ -Unlikely at this time - Lab Data Result diagrams: 10/26/24 17:28 10/26/24 17:28 Lab Results 10/26/24 10/26/24 10/26/24 Range/Units 17:28 17:28 17:28 WBC 8.6 (3.8-10.6) k/uL RBC 4.28 L (4.30-5.90) m/uL Hgb 14.7 (13.0-17.5) gm/dL Hct 44.1 (39.0-53.0) % MCV 103.1 H (80.0-100.0) fL MCH 34.4 (25.0-35.0) pg MCHC 33.4 (31.0-37.0) g/dL RDW 15.2 (11.5-15.5) % Plt Count 96 L (150-450) k/uL MPV 10.2 Neutrophils % 81 % Lymphocytes % 9 % Monocytes % 7 % Eosinophils % 2 % Basophils % 1 % Neutrophils # 7.0 (1.3-7.7) k/uL Lymphocytes # 0.8 L (1.0-4.8) k/uL Monocytes # 0.6 (0-1.0) k/uL Eosinophils # 0.1 (0-0.7) k/uL Basophils # 0.0 (0-0.2) k/uL Macrocytosis Slight PT 10.8 (10.0-12.5) sec INR 1.0 (<1.2) APTT 22.4 (22.0-30.0) sec Sodium 143 (137-145) mmol/L Potassium 4.6 (3.5-5.1) mmol/L Chloride 110 H (98-107) mmol/L Carbon Dioxide 24 (22-30) mmol/L Anion Gap 9 mmol/L BUN 32 H (9-20) mg/dL Creatinine 0.80 (0.66-1.25) mg/dL Est GFR (CKD-EPI)AfAm >90 (>60 ml/min/1.73 sqM) Est GFR (CKD-EPI)NonAf 84 (>60 ml/min/1.73 sqM) Glucose 102 H (74-99) mg/dL Lactic Ac Sepsis Rflx Plasma Lactic Acid Raimundo (0.7-2.0) mmol/L Calcium 9.7 (8.4-10.2) mg/dL Magnesium 2.2 (1.6-2.3) mg/dL Total Bilirubin 0.7 (0.2-1.3) mg/dL AST 36 (17-59) U/L ALT 24 (4-49) U/L Alkaline Phosphatase 128 H (38-126) U/L Total Protein 7.4 (6.3-8.2) g/dL Albumin 4.5 (3.5-5.0) g/dL Influenza Type A (PCR) (Not Detectd) Influenza Type B (PCR) (Not Detectd) RSV (PCR) (Not Detectd) SARS-CoV-2 (PCR) (Not Detectd) 10/26/24 10/26/24 10/26/24 Range/Units 17:28 17:28 18:02 WBC (3.8-10.6) k/uL RBC (4.30-5.90) m/uL Hgb (13.0-17.5) gm/dL Hct (39.0-53.0) % MCV (80.0-100.0) fL MCH (25.0-35.0) pg MCHC (31.0-37.0) g/dL RDW (11.5-15.5) % Plt Count (150-450) k/uL MPV Neutrophils % % Lymphocytes % % Monocytes % % Eosinophils % % Basophils % % Neutrophils # (1.3-7.7) k/uL Lymphocytes # (1.0-4.8) k/uL Monocytes # (0-1.0) k/uL Eosinophils # (0-0.7) k/uL Basophils # (0-0.2) k/uL Macrocytosis PT (10.0-12.5) sec INR (<1.2) APTT (22.0-30.0) sec Sodium (137-145) mmol/L Potassium (3.5-5.1) mmol/L Chloride (98-107) mmol/L Carbon Dioxide (22-30) mmol/L Anion Gap mmol/L BUN (9-20) mg/dL Creatinine (0.66-1.25) mg/dL Est GFR (CKD-EPI)AfAm (>60 ml/min/1.73 sqM) Est GFR (CKD-EPI)NonAf (>60 ml/min/1.73 sqM) Glucose (74-99) mg/dL Lactic Ac Sepsis Rflx Y Plasma Lactic Acid Raimundo 2.3 H* (0.7-2.0) mmol/L Calcium (8.4-10.2) mg/dL Magnesium (1.6-2.3) mg/dL Total Bilirubin (0.2-1.3) mg/dL AST (17-59) U/L ALT (4-49) U/L Alkaline Phosphatase (38-126) U/L Total Protein (6.3-8.2) g/dL Albumin (3.5-5.0) g/dL Influenza Type A (PCR) Not Detected (Not Detectd) Influenza Type B (PCR) Not Detected (Not Detectd) RSV (PCR) Not Detected (Not Detectd) SARS-CoV-2 (PCR) Not Detected (Not Detectd) - EKG Data -: EKG Interpreted by Me EKG Comments: 12-lead Electrocardiogram Interpretation Note EKG was reviewed and interpreted by myself. 12-lead ECG performed at 1735 is interpreted by me as revealing normal sinus rhythm with right bundle branch block at a rate of 94 beats per minute. [place] is leftward deviated. CO interval is 159 ms, QRS durations 130 ms, QTc is 410 ms.. There were no ST or T wave abnormalities to suggest myocardial ischemia or injury. R wave progression across the precordium was delayed y. By my interpretation this EKG is non- diagnostic for acute ischemia. Compared to EKG with EKG from July 2024 with no obvious acute change. Disposition Clinical Impression: COPD (chronic obstructive pulmonary disease), Tracheobronchitis Disposition: HOME SELF-CARE Condition: Good Instructions (If sedation given, give patient instructions): Acute Bronchitis (ED), COPD (Chronic Obstructive Pulmonary Disease) (ED) Prescriptions: Azithromycin 250 mg PO DIRECTED 4 Days #25 ml predniSONE [predniSONE 5 MG/5 ML Oral Soln] 40 mg PEG/G-TUBE DAILY 5 Days #200 ml Albuterol Nebulized [Ventolin Nebulized] 2.5 mg INHALATION Q4H 8 Days #150 ml Is patient prescribed a controlled substance at d/c from ED?: No Referrals: Junior Quiroz DO [Primary Care Provider] - 1-2 days Time of Disposition: 19:15
[2024-10-26 17:41] LABS: Basophils % (A) 1 %; Eosinophils # (A) 0.1 k/uL (0-0.7); Eosinophils % (A) 2 %; HCT 44.1 % (39.0-53.0); HGB 14.7 gm/dL (13.0-17.5); Lymphocytes # (A) 0.8 k/uL (1.0-4.8); Lymphocytes % (A) 9 %; MCH 34.4 pg (25.0-35.0); MCHC 33.4 g/dL (31.0-37.0); MCV 103.1 fL (80.0-100.0); Macrocytosis Slight; Mean Platelet Volume 10.2; Monocytes # (A) 0.6 k/uL (0-1.0); Monocytes % (A) 7 %; Neutrophils % (A) 81 %; RBC 4.28 m/uL (4.30-5.90); RDW 15.2 % (11.5-15.5); WBC 8.6 k/uL (3.8-10.6)
[2024-10-26] MEDS: ONDANSETRON 4 MG/2 ML VIAL IVP STA (17:43)
[2024-10-26] MEDS: SODIUM CHLORIDE 0.9% 1,000 ML IV STA (17:44)
[2024-10-26] MEDS: IBUPROFEN ORAL SUSP 100 MG/5 ML CUP PO STA (17:45)
[2024-10-26 17:59] LABS: ALT 24 U/L (4-49); AST 36 U/L (17-59); African American GFR (CKD) >90 (>60 ml/min/1.73 sqM); Albumin 4.5 g/dL (3.5-5.0); Alkaline Phosphatase 128 U/L (38-126); Anion Gap 9 mmol/L; Blood Urea Nitrogen 32 mg/dL (9-20); Calcium 9.7 mg/dL (8.4-10.2); Carbon Dioxide 24 mmol/L (22-30); Chloride 110 mmol/L (98-107); Glucose 102 mg/dL (74-99); Magnesium 2.2 mg/dL (1.6-2.3); Non-African American GFR(CKD) 84 (>60 ml/min/1.73 sqM); Potassium 4.6 mmol/L (3.5-5.1); Sodium 143 mmol/L (137-145); Total Bilirubin 0.7 mg/dL (0.2-1.3); Total Protein 7.4 g/dL (6.3-8.2)
[2024-10-26 18:03] LABS: Partial Thromboplastin Time 22.4 sec (22.0-30.0); Prothrombin Time 10.8 sec (10.0-12.5)
--- NOTE | 2024-10-26 18:15 | XR ---
EXAMINATION TYPE: XR chest 2V DATE OF EXAM: 10/26/2024 6:05 PM COMPARISON: Chest radiographs from 07/30/2024 CLINICAL INDICATION: Male, 84 years old with history of difficulty breathing; [facility] TECHNIQUE: XR chest 2V Frontal and lateral views of the chest. FINDINGS: Lungs/Pleura: There is no evidence of pleural effusion, focal consolidation, or pneumothorax. Pulmonary vascularity: Unremarkable. Heart/mediastinum: Cardiomediastinal silhouette is unremarkable. Two lead cardiac conduction device o verlying the left hemithorax with lead tips projecting over the right ventricle and right atrium. Musculoskeletal: No acute osseous pathology. IMPRESSION: No acute cardiopulmonary disease/process. [facility], , 10/26/2024 6:13 PM
[2024-10-26 18:25] LABS: Platelet Count 96 k/uL (150-450)
[2024-10-26] MEDS: IPRATROPIUM-ALBUTEROL 3 ML NEB INHALATION STA (18:26)
[2024-10-26 18:36] VITALS: PULSE 86
[2024-10-26] MEDS: SODIUM CHLORIDE 0.9% 500 ML 500 ML IV STA (18:45)
[2024-10-26 18:53] VITALS: BP 115/60; RESP 18; TEMP 98
[2024-10-26] MEDS: cefTRIAXone IN SWFI 1,000 MG/10 ML SYRINGE IVP STA (19:15)
[2024-10-26] MEDS: AZITHROMYCIN 500 MG TAB PO STA (19:16)
[2024-10-26] MEDS: methylPREDNISolone SOD SUCCI 40 MG/ML 1 ML VIAL IV STA (19:16)
== END 2024-10-26 19:37 | disposition home or self-care (01) ==
LOC: EC 16:45
DX: J44.9 Chronic obstructive pulmonary disease, unspecified (principal); J40 Bronchitis, not specified as acute or chronic; Z87.891 Personal history of nicotine dependence; Z93.1 Gastrostomy status
CPT/HCPCS: 36415; 94640; 93005; 80053; 83605; 83735; 85025; 85610; 85730; 87636; 71046; 99285; 96374; 96375 ×2; 96361; J2405; J0696; J2919

== ENCOUNTER 2024-12-27 18:59 | Emergency (ER) | payer MEDICARE ==
[2024-12-27 19:05] VITALS: TEMP 98.8
--- NOTE | 2024-12-27 19:07 | ED ---
URI HPI - General Chief Complaint: Upper Respiratory Infection Stated Complaint: flu like symptoms Time Seen by Provider: 12/27/24 19:06 Source: EMS, RN notes reviewed, old records reviewed Mode of arrival: EMS Limitations: no limitations - History of Present Illness Initial Comments: This is a 84-year-old male to the ER for evaluation, patient was brought in for apparently flulike symptoms this is per EMS and report. Patient himself states he was sitting at home watching TV and he ended up in the emergency department today he does not know why he was here he has no complaints. MD Complaint: sore throat, rhinorrhea, nasal congestion -: days(s) Severity: moderate Severity scale (1-10): 7 Quality: stabbing Consistency: constant Worsens With: nothing Associated Symptoms: chills, myalgias, nasal congestion, sore throat Treatments Prior to Arrival: none - Related Data Home Medications Medication Instructions Recorded Confirmed Atorvastatin [Lipitor] 40 mg PEG/G-TUBE HS 08/31/23 12/27/24 Metoprolol Succinate (ER) [Toprol 12.5 mg PEG/G-TUBE HS 08/31/23 12/27/24 XL] Levothyroxine Sodium [Synthroid] 100 mcg PEG/G-TUBE DAILY 04/16/24 12/27/24 Loratadine [Claritin] 10 mg PEG/G-TUBE DAILY@1200 04/16/24 12/27/24 Omeprazole/Sodium Bicarbonate 20 ml PEG/G-TUBE HS 07/30/24 12/27/24 [Konvomep 2-84 mg/ml Oral Susp] Sertraline [Zoloft] 25 mg PEG/G-TUBE DAILY 07/30/24 12/27/24 Midodrine HCl [ProAmantine] 2.5 mg PEG/G-TUBE TID 10/26/24 12/27/24 Promethazine 6.25MG/5Ml [Phenergan 12.5 mg PEG/G-TUBE Q6H PRN 12/27/24 12/27/24 Syrup] Allergies Allergy/AdvReac Type Severity Reaction Status Date / Time No Known Allergies Allergy Verified 12/27/24 19:35 Review of Systems ROS Statement: Those systems with pertinent positive or pertinent negative responses have been documented in the HPI. ROS Other: All systems not noted in ROS Statement are negative. Past Medical History Past Medical History: Hyperlipidemia, Hypertension, Myocardial Infarction (NE), Thyroid Disorder Additional Past Medical History / Comment(s): surgery on throat learning to speak through speech therapy. Put vein from leg in to throat. Patient is on feeding tube Last Myocardial Infarction Date:: 2021 History of Any Multi-Drug Resistant Organisms: None Reported Past Surgical History: Adenoidectomy, Heart Catheterization With Stent, Tonsillectomy Additional Past Surgical History / Comment(s): bone marrow bx prior. 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 Absent: scleral icterus, conjunctival injection, periorbital swelling ENT exam: Present: normal exam, mucous membranes dry Neck exam: Present: normal inspection. Absent: tenderness, meningismus, lymphadenopathy Respiratory exam: Present: normal lung sounds bilaterally. Absent: respiratory distress, wheezes, rales, rhonchi, stridor Cardiovascular Exam: Present: regular rate, normal rhythm, normal heart sounds. Absent: systolic murmur, diastolic murmur, rubs, gallop, clicks GI/Abdominal exam: Present: soft, normal bowel sounds. Absent: distended, tenderness, guarding, rebound, rigid Extremities exam: Present: normal inspection, full ROM, normal capillary refill. Absent: tenderness, pedal edema, joint swelling, calf tenderness Back exam: Present: normal inspection Neurological exam: Present: alert, oriented X3, CN II-XII intact Psychiatric exam: Present: normal affect, normal mood Skin exam: Present: warm, dry, intact, normal color. Absent: rash Course Vital Signs 12/27/24 12/27/24 19:01 20:22 Temperature 98.8 F Pulse Rate 79 75 Respiratory 18 16 Rate Blood Pressure 142/85 128/74 O2 Sat by Pulse 95 94 L Oximetry - Reevaluation(s) Reevaluation #1: 12/27/24 19:21 Medical records reviewed Patient has history of weakness pneumonia and malnutrition Reevaluation #2: 12/27/24 21:59 Patient symptoms are improved here with IV hydration Patient given steroid and antihistamine medication for noisy breathing no respiratory distress Patient feels well family is at bedside stating patient does appear much improved and he was at home and is comfortable taking him home Reevaluation #3: 12/27/24 22:00 Patient and family informed of results questions answered Reevaluation #4: Was pt. sent in by a medical professional or institution (, [facility], SCHOOL SUPERINTENDENT, urgent care, hospital, or detention...) When possible be specific @ -no Did you speak to anyone other than the patient for history (EMS, parent, family, police, friend...)? What history was obtained from this source @ -no Did you review nursing and triage notes (agree or disagree)? Why? @ -agree Are old charts reviewed (outside hosp., previous admission, EMS record, old EKG, old radiological studies, urgent care reports/EKG's, detention records)? Report findings @ -yes Differential Diagnosis (chest pain, altered mental status, abdominal pain women, abdominal pain men, vaginal bleeding, weakness, fever, dyspnea, syncope, headache, dizziness, GI bleed, back pain, seizure, CVA, palpatations, mental health, musculoskeletal)? @ -prior EKG interpreted by me (3pts min.). @ -yes X-rays interpreted by me (1pt min.). @ -yes negative for acute disease CT interpreted by me (1pt min.). @ -no U/S interpreted by me (1pt. min.). @ -no What testing was considered but not performed or refused? (CT, X-rays, U/S, labs)? Why? @ -none What meds were considered but not given or refused? Why? @ -none Did you discuss the management of the patient with other professionals (kenyatta alexander i.e. [facility] Berry, SCHOOL SUPERINTENDENT, lab, RT, psych nurse, adoption social worker, black top paver operator, teacher, sales and service officer, special education case manager)? Give summary @ -no Was smoking cessation discussed for >3mins.? @ -no Was critical care preformed (if so, how long)? @ -no Were there social determinants of health that impacted care today? How? (Homelessness, low income, unemployed, alcoholism, drug addiction, transportation, low edu. Level, literacy, decrease access to med. care, halfway, rehab)? @ -none Was there de-escalation of care discussed even if they declined (Discuss DNR or withdrawal of care, Hospice)? DNR status @ -no What co-morbidities impacted this encounter? (DM, HTN, Smoking, COPD, CAD, Cancer, CVA, ARF, Chemo, Hep., AIDS, mental health diagnosis, sleep apnea, morbid obesity)? @ -none Was patient admitted / discharged? Hospital course, mention meds given and route, prescriptions, significant lab abnormalities, going to OR and other pertinent info. @ - Undiagnosed new problem with uncertain prognosis? @ -no Drug Therapy requiring intensive monitoring for toxicity (Heparin, Nitro, Insulin, Cardizem)? @ -no Were any procedures done? @ -no Diagnosis/symptom? @ - Acute, or Chronic, or Acute on Chronic? @ -Acute Uncomplicated (without systemic symptoms) or Complicated (systemic symptoms)? @ -Complicated Side effects of treatment? @ -no Exacerbation, Progression, or Severe Exacerbation? @ -exacerbation Poses a threat to life or bodily function? How? (Chest pain, USA, NE, pneumonia, PE, COPD, DKA, ARF, appy, cholecystitis, CVA, Diverticulitis, Homicidal, Suicidal, threat to staff... and all critical care pts) @ -yes Reevaluation #5: Differential Weakness: Hypoglycemia, shock, sepsis, hyponatremia, anemia, infection, NE, ETOH, adverse medicine reaction, overdose, stroke, this is not meant to be an all-inclusive list. Medical Decision Making - Medical Decision Making 84 male who is unsure of why he is in the ER, daughter who is currently at bedside called EMS due to noisy breathing and concern for increased work of breathing or shortness of breath but patient denies shortness of breath oxygen is normal here in the ER chest ray is negative family is okay taking patient home as patient has no complaints - Lab Data Result diagrams: 12/27/24 19:56 12/27/24 19:56 Lab Results 12/27/24 12/27/24 12/27/24 Range/Units 19:30 19:56 19:56 WBC 7.2 (3.8-10.6) k/uL RBC 4.24 L (4.30-5.90) m/uL Hgb 14.6 (13.0-17.5) gm/dL Hct 44.2 (39.0-53.0) % MCV 104.3 H (80.0-100.0) fL MCH 34.4 (25.0-35.0) pg MCHC 33.0 (31.0-37.0) g/dL RDW 14.0 (11.5-15.5) % Plt Count 120 L (150-450) k/uL MPV 9.8 Neutrophils % 76 % Lymphocytes % 12 % Monocytes % 8 % Eosinophils % 1 % Basophils % 0 % Neutrophils # 5.5 (1.3-7.7) k/uL Lymphocytes # 0.9 L (1.0-4.8) k/uL Monocytes # 0.6 (0-1.0) k/uL Eosinophils # 0.1 (0-0.7) k/uL Basophils # 0.0 (0-0.2) k/uL Macrocytosis Slight PT 11.5 (10.0-12.5) sec INR 1.0 (<1.2) APTT 24.0 (22.0-30.0) sec Sodium (137-145) mmol/L Potassium (3.5-5.1) mmol/L Chloride (98-107) mmol/L Carbon Dioxide (22-30) mmol/L Anion Gap mmol/L BUN (9-20) mg/dL Creatinine (0.66-1.25) mg/dL Est GFR (CKD-EPI)AfAm (>60 ml/min/1.73 sqM) Est GFR (CKD-EPI)NonAf (>60 ml/min/1.73 sqM) Glucose (74-99) mg/dL Plasma Lactic Acid Raimundo (0.7-2.0) mmol/L Calcium (8.4-10.2) mg/dL Phosphorus (2.5-4.5) mg/dL Magnesium (1.6-2.3) mg/dL Total Bilirubin (0.2-1.3) mg/dL AST (17-59) U/L ALT (4-49) U/L Alkaline Phosphatase (38-126) U/L Troponin I (0.000-0.034) ng/mL NT-Pro-B Natriuret Pep pg/mL Total Protein (6.3-8.2) g/dL Albumin (3.5-5.0) g/dL Influenza Type A (PCR) Not Detected (Not Detectd) Influenza Type B (PCR) Not Detected (Not Detectd) RSV (PCR) Not Detected (Not Detectd) SARS-CoV-2 (PCR) Not Detected (Not Detectd) 12/27/24 12/27/24 12/27/24 Range/Units 19:56 19:56 19:56 WBC (3.8-10.6) k/uL RBC (4.30-5.90) m/uL Hgb (13.0-17.5) gm/dL Hct (39.0-53.0) % MCV (80.0-100.0) fL MCH (25.0-35.0) pg MCHC (31.0-37.0) g/dL RDW (11.5-15.5) % Plt Count (150-450) k/uL MPV Neutrophils % % Lymphocytes % % Monocytes % % Eosinophils % % Basophils % % Neutrophils # (1.3-7.7) k/uL Lymphocytes # (1.0-4.8) k/uL Monocytes # (0-1.0) k/uL Eosinophils # (0-0.7) k/uL Basophils # (0-0.2) k/uL Macrocytosis PT (10.0-12.5) sec INR (<1.2) APTT (22.0-30.0) sec Sodium 140 (137-145) mmol/L Potassium 4.1 (3.5-5.1) mmol/L Chloride 105 (98-107) mmol/L Carbon Dioxide 25 (22-30) mmol/L Anion Gap 10 mmol/L BUN 23 H (9-20) mg/dL Creatinine 0.76 (0.66-1.25) mg/dL Est GFR (CKD-EPI)AfAm >90 (>60 ml/min/1.73 sqM) Est GFR (CKD-EPI)NonAf 85 (>60 ml/min/1.73 sqM) Glucose 104 H (74-99) mg/dL Plasma Lactic Acid Raimundo 2.4 H* (0.7-2.0) mmol/L Calcium 9.1 (8.4-10.2) mg/dL Phosphorus 2.8 (2.5-4.5) mg/dL Magnesium 2.2 (1.6-2.3) mg/dL Total Bilirubin 1.2 (0.2-1.3) mg/dL AST 85 H (17-59) U/L ALT 75 H (4-49) U/L Alkaline Phosphatase 101 (38-126) U/L Troponin I 0.017 (0.000-0.034) ng/mL NT-Pro-B Natriuret Pep 986 pg/mL Total Protein 6.5 (6.3-8.2) g/dL Albumin 3.6 (3.5-5.0) g/dL Influenza Type A (PCR) (Not Detectd) Influenza Type B (PCR) (Not Detectd) RSV (PCR) (Not Detectd) SARS-CoV-2 (PCR) (Not Detectd) - EKG Data -: EKG Interpreted by Me (EKG is sinus 80 MI 154 QRS 126 QTc 406) - Radiology Data Radiology results: report reviewed (Chest x-ray is negative for acute disease), image reviewed Disposition Clinical Impression: Acute upper respiratory infection Disposition: HOME SELF-CARE Condition: Good Instructions (If sedation given, give patient instructions): Upper Respiratory Infection (ED) Is patient prescribed a controlled substance at d/c from ED?: No Referrals: Junior Quiroz DO [Primary Care Provider] - 1-2 days Time of Disposition: 22:00
[2024-12-27] MEDS: ONDANSETRON 4 MG/2 ML VIAL IVP STA (19:47)
[2024-12-27] MEDS: IBUPROFEN 600 MG TAB PO STA (19:47)
[2024-12-27] MEDS: ACETAMINOPHEN TAB 500 MG TAB PO STA (19:47)
[2024-12-27] MEDS: SODIUM CHLORIDE 0.9% 1,000 ML IV STA (19:47)
--- NOTE | 2024-12-27 20:10 | XR ---
EXAMINATION TYPE: XR chest 2V DATE OF EXAM: 12/27/2024 7:45 PM COMPARISON: 10/26/2024 CLINICAL INDICATION: Male, 84 years old with history of Weakness, TECHNIQUE: XR chest 2V view(s) obtained. FINDINGS: The heart size is normal. Pacemaker overlies left chest. The pulmonary vasculature is normal. The lungs are clear. IMPRESSION: 1. No acute pulmonary process. [facility], , 12/27/2024 8:08 PM
[2024-12-27 20:12] LABS: Influenza A Not Detected (Not Detectd); Influenza B Not Detected (Not Detectd); RSV Not Detected (Not Detectd)
[2024-12-27 20:23] VITALS: RESP 16
[2024-12-27 20:26] LABS: Basophils % (A) 0 %; Eosinophils # (A) 0.1 k/uL (0-0.7); Eosinophils % (A) 1 %; HCT 44.2 % (39.0-53.0); HGB 14.6 gm/dL (13.0-17.5); Lymphocytes # (A) 0.9 k/uL (1.0-4.8); Lymphocytes % (A) 12 %; MCH 34.4 pg (25.0-35.0); MCV 104.3 fL (80.0-100.0); Macrocytosis Slight; Mean Platelet Volume 9.8; Monocytes # (A) 0.6 k/uL (0-1.0); Monocytes % (A) 8 %; Neutrophils # (A) 5.5 k/uL (1.3-7.7); Neutrophils % (A) 76 %; Platelet Count 120 k/uL (150-450); RBC 4.24 m/uL (4.30-5.90); WBC 7.2 k/uL (3.8-10.6)
[2024-12-27 20:39] LABS: ALT 75 U/L (4-49); AST 85 U/L (17-59); African American GFR (CKD) >90 (>60 ml/min/1.73 sqM); Albumin 3.6 g/dL (3.5-5.0); Alkaline Phosphatase 101 U/L (38-126); Anion Gap 10 mmol/L; Blood Urea Nitrogen 23 mg/dL (9-20); Calcium 9.1 mg/dL (8.4-10.2); Carbon Dioxide 25 mmol/L (22-30); Chloride 105 mmol/L (98-107); Glucose 104 mg/dL (74-99); Magnesium 2.2 mg/dL (1.6-2.3); Non-African American GFR(CKD) 85 (>60 ml/min/1.73 sqM); Phosphorus 2.8 mg/dL (2.5-4.5); Potassium 4.1 mmol/L (3.5-5.1); Sodium 140 mmol/L (137-145); Total Bilirubin 1.2 mg/dL (0.2-1.3); Total Protein 6.5 g/dL (6.3-8.2)
[2024-12-27 20:46] LABS: NT-Pro-B-Type Natriuretic Pept 986 pg/mL
[2024-12-27 20:47] LABS: Prothrombin Time 11.5 sec (10.0-12.5)
[2024-12-27 22:05] VITALS: BP 127/81; PULSE 72
[2024-12-27] MEDS: FLUTICASONE NASAL 50MCG/SPRAY 16GM BTL EA NOSTRIL STA (22:08)
[2024-12-27] MEDS: DEXAMETHASONE SOD PHOSPHATE 10 MG/ML 1 ML VIAL IVP STA (22:08)
== END 2024-12-27 22:14 | disposition home or self-care (01) ==
LOC: EC 18:59
DX: J06.9 Acute upper respiratory infection, unspecified (principal); Z87.891 Personal history of nicotine dependence
CPT/HCPCS: 36415; 93005; 83880; 80053; 83605; 83735; 84100; 84484; 85025; 85610; 85730; 87636; 71046; 99284; 96374; 96361 ×2; J1100

== ENCOUNTER → 2025-04-13 | Outpatient (CLI) | payer MEDICARE ==
[2025-04-13 18:34] LABS: Blood Urea Nitrogen 21.9 mg/dL (9.0-27.0); Calcium 9.8 mg/dL (8.7-10.3); Carbon Dioxide 18.7 mmol/L (21.6-31.8); Chloride 110 mmol/L (96-109); Glucose 96 mg/dL (70-110); Potassium 5.4 mmol/L (3.5-5.5); Sodium 141 mmol/L (135-145); T4, Free (Free Thyroxine) 1.67 ng/dL (0.80-1.80)
== END | disposition home or self-care (01) ==
LOC: LABWHC1 09:25
PROVIDERS: ATTEND Internal Medicine
DX: E03.9 Hypothyroidism, unspecified (principal)
CPT/HCPCS: 36415; 80048; 84439; 84443